=== PATIENT | male | born 1950 | race Caucasian/White ===

== ENCOUNTER 2020-03-14 06:25 | Inpatient (IN) | payer OTHER, SELFPAY ==
[2020-03-14] VITALS (37 sets, daily range): BP systolic 108–142; BP diastolic 67–81; PULSE 77–109; RESP 12–46; TEMP 36.2–37.6; O2SAT 78–99; BMI 29.2; BMI 28.4; BMI 28.5
--- NOTE | 2020-03-14 06:39 | EKG12_ITS ---
Test Reason : SOB Blood Pressure : / mmHG Vent. Rate : 106 BPM Atrial Rate : 106 BPM P-R Int : 188 ms QRS Dur : 078 ms QT Int : 328 ms P-R-T Axes : 057 -58 036 degrees QTc Int : 435 ms Sinus tachycardia Left axis deviation Inferior infarct , age undetermined Anterolateral infarct , age undetermined Abnormal ECG Confirmed by JOSE RAUL DENNISON, IRVIN ([id number]), marketing editor DEMETRIA OLVERA ([id number]) on 03/16/2020 10:29:01 AM Referred By: NANCY Confirmed By:IRVIN BLUNT MD
--- NOTE | 2020-03-14 06:39 | RAD_ITS ---
STUDY: X-RAY CHEST REASON FOR EXAM: Male, 69 years old. SOB AND COUGH. WORSENING SHORTNESS OF BREATH X 1 WEEK. +NAUSEA. LOW GRADE FEVER. TECHNIQUE: Single AP portable view of the chest. COMPARISON: None. FINDINGS: EKG leads overlie the chest The lungs are expanded with diffuse airspace opacifications in both lung sunshine. Findings can be seen with Covid pneumonia, CHF, multifocal pneumonitis. There is no demonstrated pleural abnormality. Normal size heart. Normal mediastinum and kodak. Normal visualized pulmonary arteries. Normal visualized aortic arch and descending thoracic aorta. There are diffuse degenerative changes of the visualized thoracic spine. Normal visualized ribs, clavicles, and shoulders. There is no demonstrated abnormality of the visualized soft tissue structures of the upper abdomen. RAD/Chest 1 View (Portable) IMPRESSION: Patchy diffuse airspace opacification in both lung sunshine, differential as described. Follow-up recommended to ensure resolution Electronically Signed: Carlos Giang MD at 8:30 EDT , Service support ,
--- NOTE | 2020-03-14 06:42 | ED.VISSUMM ---
- ER Visit Summary Date of Service: 03/14/20 Chief Complaint: Shortness of breath History of Present Illness: The patient is a 69 M who presents with shortness of breath that is been getting worse over the past week but became acutely worse since yesterday. Patient states it is gradually gotten worse. Patient states his breathing is worse with any exertion. Patient admits to a cough with a small amount of white sputum. Patient admits to a fever of 102. Patient denies any sore throat, rhinorrhea, or ear pain. Patient denies any chest pain. Patient admits to some nausea and vomiting. Patient denies any loss of taste or smell. Physical Examination: Vital signs are stable except for tachycardia of 109 tachypnea of 30 and a pulse oximeter of 78 on nonrebreather mask. Patient came up to 96 on BiPAP. Patient is resting comfortably and speaking in full sentences while on BiPAP. Oral mucosa is pink and moist. Neck is supple. Trachea is midline. There is no JVD. Heart was regular rate and rhythm. Lungs showed few rales in the bases bilaterally. There is good respiratory effort noted. Abdomen is soft. Bowel sounds are normal. There is no tenderness. Cranial nerves II through XII are intact. There are no focal motor or sensory deficits. Test Results: EKG showed sinus tachycardia with a rate of 106. There are no acute ST or T wave changes noted. CBC and comprehensive metabolic profile were obtained. Arterial blood gas was obtained. Blood cultures were obtained. Lactate and troponin were obtained. Portable chest x-ray was obtained. Covid test and respiratory panel were obtained. Emergency Department Course and Treatment: Patient was maintained on BiPAP here. Patient was given an albuterol inhaler. Care of the patient was turned over to the oncoming physician pending lab and x-ray results. Disposition: Likely admission to the hospital Impression: 1. Hypoxemia This note was generated with [employer] dictation software. It may contain incorrect words, spelling, and punctuation that were not noted in review of the chart prior to signing ED Disposition - Plan for ED Patient: Referrals: Michoacano Ruiz DO [Primary Care Provider] -
[2020-03-14] MEDS: 0.9% Normal Saline 1,000 ML 999 ML IV ×2 (07:11→09:00)
[2020-03-14 07:22] LABS: ALB/GLOB Ratio 0.5 RATIO (0.9-2.4); AST(SGOT) 44 U/L (15-37); Alanine Aminotransfer ALT/SGPT 43 U/L (16-61); Albumin, Serum 2.6 g/dL (3.2-5.0); Alkaline Phosphatase 113 U/L (45-117); Anion Gap 8 (5-15); BUN 25 mg/dL (7-18); BUN/Creat Ratio 19.8 RATIO (10-20); Calcium,Total 9.2 mg/dL (8.5-10.1); Chloride 103 mmol/L (98-107); Creatinine, Serum 1.26 mg/dL (0.70-1.30); EST Glomerular Filtration Rate 61 mL/min (>60); Est Glom Filt Rate - Afr Amer 73 mL/min (>60); Estimated Creatinine Clearance 58.74 ml/min; Glucose 192 mg/dL (74-106); Potassium 3.8 mmol/L (3.5-5.1); Protein, Total 7.6 g/dL (6.4-8.2); Sodium Level 136 mmol/L (136-145)
[2020-03-14 07:29] LABS: NRBC Flagged by Analyzer 0 % (0-5)
[2020-03-14 07:36] LABS: Absolute Lymphocyte Count 0.71 X10^3/uL (0.83-4.51); Absolute Neutrophil Count 12.3 X10^3/uL (2.0-7.7); Basophil# 0.02 X10^3/uL; Basophil% 0.1 % (0-1); Eosinophil# 0.01 X10^3/uL; Eosinophils% 0.1 % (0-5); Hematocrit 43.3 % (40-54); Hemoglobin 14.6 g/dL (13.0-16.5); Lymphocyte # 0.71 X10^3/ul (4.0); Lymphocyte % 5.1 % (19-41); Mean Corp Hgb Conc 33.7 g/dL (32-36); Mean Corpuscular Hgb 30.9 pg (27.0-32.0); Mean Corpuscular Volume 91.7 fL (80-94); Mean Platelet Vol. 9.6 fl (6.2-12.0); Monocyte# 0.74 X10^3/uL; Monocyte% 5.3 % (0-10); Neutrophil # 12.27 X10^3/uL (2.7-7.7); Neutrophil % 88.2 % (47-70); Platelet Count 279 K/mm3 (150-450); RBC Distribution Width CV 13.2 % (11.6-14.6); RBC Distribution Width SD 45.3 fl (35.1-43.9); Red Blood Count 4.72 M/mm3 (4.6-6.2); White Blood Count 13.9 K/mm3 (4.4-11.0)
[2020-03-14 07:36] LABS: Allen Test Positive; Base Excess 1 mmol/L (-2 to +2); Bicarbonate 24.9 mmol/L (22-26); Blood Gas Specimen Type ART; FI02 100; O2 Delivery Device BiPAP; PO2 207 mmHG (75-100); RR 12; SITE R Brach; SO2 100 % (95-99); Total Carbon Dioxide 26 mmol/L; pCO2 35.3 mmHg (35-45); pH 7.46 (7.35-7.45)
[2020-03-14 07:55] LABS: Lactic Acid 2.5 mmol/L (0.4-1.9)
[2020-03-14 08:18] LABS: Color, Urine Amber (Yellow); Glucose, Dipstick Normal (Normal); Ketone-Dipstick 5 mg/dl (Negative); Leukocyte Esterase-Dipstick 25 /ul (Negative); Nitrite-Dipstick Positive (Negative); Occult Blood-Urine 250 /ul (Negative); Protein-Dipstick 500 mg/dl (Negative); Urine Clarity Clear (Clear); Urine Urobilinogen 4 mg/dl (Normal)
[2020-03-14 08:38] LABS: CPK Total, Creatine Kinase 76 U/L (39-308); LDH 333 U/L (87-241)
[2020-03-14 08:40] LABS: International Normalized Ratio 1.2; Prothrombin Time (Protime)PT. 14.7 SECONDS (11.7-14.9)
[2020-03-14 08:41] LABS: Partial Thromboplast Time 36.1 Seconds (24.1-36.2)
[2020-03-14 08:47] LABS: Urine Bilirubin Dipstick 1 mg/dL (Negative)
[2020-03-14 08:52] LABS: Fibrinogen > 900 mg/dl (203-444)
[2020-03-14 08:55] LABS: Bacteria 3+ /hpf (None Seen); Fine Granular Cast- Urine 10-25 SEEN /lpf (0-5); Mucous, Urine 2+ /hpf (<or=2+); Red Blood Cells-Urine 10-25 SEEN /hpf (0-5); Squamous Epithelial Cells - UA 0-5 SEEN /hpf (0-5); White Blood Cells 0-5 SEEN /hpf (0-5)
[2020-03-14] MEDS: Ceftriaxone 1 GM/50 ML BAG IV (09:00)
[2020-03-14 09:03] LABS: Procalcitonin 0.59 ng/mL (0.00-0.09)
[2020-03-14 09:19] LABS: D-Dimer Quantitative (DVT/PE) 1.48 FEU/ug/m (0.27-0.49)
--- NOTE | 2020-03-14 09:30 | CT_ITS ---
STUDY: CTA CHEST REASON FOR EXAM: Male, 69 years old. RESPIRATORY FAILURE/FEVER/SOB. TESTING FOR COVID RADIATION DOSAGE (If Supplied By Facility): CTDIvol = ( 17.35 ) mGy, DLP = ( 569.28 ) mGycm TECHNIQUE: The examination was performed with the intravenous administration of IV 100mL Isovue-370. Post-processing of the angiographic images was performed, with multiplanar reformation and 3D reconstruction. Individualized dose optimization techniques were used for this CT. COMPARISON: Previous plain films FINDINGS: Normal enhancement of the main pulmonary artery and right and left pulmonary arteries. Normal enhancement of the bilateral peripheral pulmonary arteries. There is no demonstrated pulmonary embolism. There is atherosclerotic calcification of the aortic arch with tortuosity. There is no demonstrated aortic dissection. Normal heart and pericardium. There are scattered subcentimeter axillary, mediastinal and perihilar lymph nodes. No suspicious bulky lymphadenopathy. There is peribronchial thickening. The lungs are well expanded. Diffuse bilateral groundglass and airspace opacifications in both lung sunshine without effusion. Differential includes Covid pneumonia, multifocal pneumonitis, drug interaction/toxicity. Normal pleura. Normal chest wall structures. There are degenerative changes of thoracic spine. Limited cuts through the upper abdomen show previous cholecystectomy, and diffuse fatty infiltration of the liver. CT/CTA Chest W/WO Contrast IMPRESSION: No demonstrated PE, or thoracic aortic aneurysm or dissection Diffuse airspace and interstitial opacifications in both lung sunshine, differential as described above. Scattered subcentimeter axillary, mediastinal, perihilar lymphadenopathy Degenerative bony changes Electronically Signed: Carlos Giang MD at 10:32 EDT , Service support ,
[2020-03-14 09:38] LABS: BNP,B-Type NATRIURETIC PEPTIDE 199.8 pg/mL (0-100)
--- NOTE | 2020-03-14 10:09 | ED.RN ---
pt onnrb to ct, puffing an sats 78%. bipap taken to radiology and pt placed back on. sats recovered to9 within appx a minute. breathing improving.
[2020-03-14 11:01] LABS: Reflex Lactate? Y
--- NOTE | 2020-03-14 11:42 | ED.RN ---
CALLED RT TO TO COME ASSESS PT, RR MID 40'S, SPO2 91%, HEART RATE INCREASING.
[2020-03-14] MEDS: 0.9% Normal Saline 1,000 ML 150 ML IV (11:46)
[2020-03-14 12:12] LABS: Lactic Acid 2.4 mmol/L (0.4-1.9)
--- NOTE | 2020-03-14 12:16 | PCM.HP.STD ---
History of Present Illness Date of Admission: 03/14/20 Chief Complaint: Hypoxia The patient is a 69 year old M with a PMH as below who presents to the hospital with worsening shortness of breath. He started feeling sick over the last 7 days though his shortness of breath became worse yesterday and then today he was even worse with exertion. He has had a mild cough as well as a fever up to 102. He does have some nausea and vomiting but no loss of sense of smell or taste. Per the family, his is also sick though not as severely. She had gone to [place] 2 weeks ago and 4 days later got sick. She feels tired but otherwise does not have any coughing or shortness of breath. In the ER he was found to have a white count of 13.9 as well as a D-dimer of 1.48 and underwent a CTA of the chest which was negative for PE. His lactic acid in the ED was 2.5 and his come down to 2.4. His troponin was elevated to 1.08, with a C-reactive protein of 385 and a BNP of 200 with a procalcitonin of 0.59 and an LDH of 333. He also had a UA with positive nitrites and positive leukocyte esterase with no white blood cell count but 3+ urine bacteria. Past Medical History Past Medical History (Chronic Problems): Chronic Problems Cholelithiasis (Chronic) Allergies No Known Allergies Allergy (Verified 10/16/14 22:10) Home Medications: Ambulatory Orders Medication Instructions Recorded Testosterone Cypionate [Testone 200 mg IM 03/14/20 [facility]] Surgical History: no surgical history Psychiatric History: No pertinent psych hx Smoking Status: Never smoker Alcohol: None Drugs: None - *Family History Maternal History Items: Heart Disease Paternal History Items: Pulmonary Disease, - - there is no FH of DM Review of Systems Constitutional: Reports: Fever, Malaise. Denies: Anorexia HEENT: Denies: Head Aches, Sinus Congestion, Sinus Drainage Cardiovascular: Denies: Chest Pain, Palpitations Respiratory: Reports: Shortness of Breath, Shortness of breath upon exertion, Sputum production. Denies: Cough, Shortness of breath at rest Gastrointestinal: Denies: Abdominal Pain, Nausea, Vomiting Genitourinary: Denies: Dysuria Musculoskeletal: Denies: Joint Pain, Joint Tenderness Skin: Denies: Rash, Wounds Neurological: Denies: Numbness, Tingling, Focal weakness Psychiatric: Denies: Anxiety, Depression Hematologic/ Lymphatic: Denies: Easy Bruising, Easy Bleeding VTE Information - Inpt Only VTE Present on Admission: No - Physical Exam Vitals/I&O's: Vital Signs Temp Pulse Resp BP Pulse Ox 98.9 F 102 H 46 H 113/68 94 03/14/20 11:10 03/14/20 11:54 03/14/20 11:54 03/14/20 11:10 03/14/20 11:54 Oxygen Flow Rate (L/min) 15 Oxygen Delivery Method Room Air Weight: 204 lb 2.369 oz Body Mass Index (BMI) 29.2 Finger Stick Blood Glucose 119 Intake and Output for Last 24 Hours 03/12/20 03/13/20 03/14/20 23:59 23:59 23:59 Intake Total 2305 / 2305 Balance 2305 / 2305 General: Alert, Oriented x3, Cooperative, No apparent distress HEENT: Atraumatic, PERRLA, EOMI, Normocephalic Oral: Moist Mucosa Neck: Supple, No JVD Lungs: Normal air movement, No rhonchi, No wheeze, No rales, Diminished Cardiovascular: Regular Rhythm, Normal S1, Normal S2, No murmurs, Tachycardic Abdomen: Soft, Non Tender, Non-Distended, No Hepato-splenomegaly Extremities: No edema, Capillary Refill Less than 3 Seconds Skin: No rashes, No breakdown, Incision - Right upper back with packing in place no erythema surrounding the incision Neurological: Neuro grossly intact, Sensory exam intact to light touch and pain Psych/Mental Status: Normal Affect, Appropriate Microbiology Past 72 Hours 03/14/20 06:51 Mucosa - Nose Respiratory Panel (PCR) - Final Laboratory Results 03/14/20 06:31: Specimen Type ART, Sample Site R Brach, pH 7.46 H, Bicarbonate Actual 24.9, Total CO2 26, Base Excess 1, O2 Saturation 100 H, O2 % 100, ABG pCO2 35.3, ABG pO2 207 H, Augusto Test Positive, Respiration Rate 12, O2 Delivery Device BiPAP 03/14/20 06:45: Troponin I 1.080 H* 03/14/20 06:51: COVID-19 ([facility]) Detected 03/14/20 06:55: WBC 13.9 H, RBC 4.72, Hgb 14.6, Hct 43.3, MCV 91.7, MCH 30.9, MCHC 33.7, RDW Std Deviation 45.3 H, RDW Coeff of Maxim 13.2, Plt Count 279, MPV 9.6, Immature Gran % (Auto) 1.200 H, Neut % (Auto) 88.2 H, Lymph % (Auto) 5.1 L, Craven % (Auto) 5.3, Eos % (Auto) 0.1, Baso % (Auto) 0.1, Absolute Neuts (auto) 12.3 H, Absolute Lymphs (auto) 0.71 L, Nucleated RBC % 0 03/14/20 06:55: PT Cancelled, INR Cancelled, APTT Cancelled 03/14/20 06:55: Sodium 136, Potassium 3.8, Chloride 103, Carbon Dioxide 25.0, Anion Gap 8, BUN 25 H, Creatinine 1.26, Estim Creat Clear Calc 58.74, Est GFR (MDRD) Af Amer 73, Est GFR (MDRD) Non-Af 61, BUN/Creatinine Ratio 19.8, Glucose 192 H, Calcium 9.2, Total Bilirubin 0.50, AST 44 H, ALT 43, Alkaline Phosphatase 113, Total Protein 7.6, Albumin 2.6 L, Globulin 5.0 H, Albumin/Globulin Ratio 0.5 L 03/14/20 06:55: Lactic Acid 2.5 H* 03/14/20 06:55: B-Natriuretic Peptide 199.8 H 03/14/20 07:55: Urine Color Kathia, Urine Clarity Clear, Urine pH 5.0, Ur Specific Start 1.020, Urine Protein 500 H, Urine Glucose (UA) Normal, Urine Ketones 5 H, Urine Occult Blood 250 H, Urine Nitrite Positive H, Urine Bilirubin 1 H, Urine Urobilinogen 4 H, Ur Leukocyte Esterase 25 H, Urine RBC 10-25 SEEN, Urine WBC 0-5 SEEN, Ur Squamous Epith Cells 0-5 SEEN, Urine Bacteria 3+, Fine Granular Casts 10-25 SEEN, Urine Mucus 2+ 03/14/20 07:55: PT 14.7, INR 1.2, APTT 36.1, Fibrinogen > 900 H, D-Dimer Quant (PE/DVT) 1.48 H* 03/14/20 07:55: Lactate Dehydrogenase 333 H, Total Creatine Kinase 76, C-React Prot Ext Range 385.00 H 03/14/20 07:55: Procalcitonin 0.59 H 03/14/20 11:35: Lactic Acid 2.4 H* Current Medications Sodium Chloride () 1,000 mls @ 150 mls/hr IV .[id number] [facility] Last Admin: 03/14/20 11:46 Dose: 150 mls/hr Documented by: Assessment/Plan All Active Problems Hyperglycemia (Acute) Acute pancreatitis (Acute) Abnormal LFTs (liver function tests) (Acute) 1. Severe sepsis secondary to acute Covid pneumonia with acute hypoxic respiratory failure/UTI/elevated troponin secondary to demand ischemia -Per report his oxygen saturations were in the 70s while on a nonrebreather prior to being initiated on BiPAP therapy which has stabilized his oxygen saturations -We will consult the director of institutional research as well as infectious disease for likely initiation of convalescent plasma and remdesivir -We will initiate him on Decadron as well as continue with Rocephin for his UTI pending urine culture -Urine strep and Legionella antigens are pending -D-dimer is a little bit elevated however CTA was negative for a PE -Obtain serial troponins, likely secondary to demand ischemia from his hypoxia. No need for cardiology evaluation at this time however if he does have a significant increase in his troponins then will consult cardiology. At this time he denies any chest pain 2. Right upper back abscess -He had a large boil on his back which was lanced by his physician 1 to 2 weeks ago -He does have packing in place but the area does not appear red or inflamed -We will consult wound care for evaluation and management DVT: Lovenox Inpatient E&M: [id number] Init Hosp L3
[2020-03-14] MEDS: 0.9% Normal Saline 1,000 ML 100 ML IV (17:48)
[2020-03-14] MEDS: dexAMETHasone 10 MG/ML Vial 6 MG IV (17:48)
--- NOTE | 2020-03-14 20:27 | CPS ---
Pt.'s EPAP and FiO2 increased; alveolar recruitment as well as meeting pt.'s oxygenation demands
[2020-03-14] MEDS: Enoxaparin 30 MG/0.3 ML Syringe SC (20:49)
[2020-03-15] VITALS (36 sets, daily range): BP systolic 104–139; BP diastolic 62–79; PULSE 74–90; RESP 12–43; TEMP 36.3–37.2; O2SAT 86–97
--- NOTE | 2020-03-15 03:12 | NURSING ---
bipap became disconnected, pt's O2 sats dropped to mid 60's, placed on 100% FiO2 for approx 5 minutes, weaned back down to 60% FiO2, sats 87-88%, increased FiO2 to 70%, pt recovery slowly.
[2020-03-15] MEDS: 0.9% Normal Saline 1,000 ML 100 ML IV ×2 (03:22→13:10)
[2020-03-15 03:39] LABS: Absolute Neutrophil Count 8.2 X10^3/uL (2.0-7.7); Basophil# 0.02 X10^3/uL; Basophil% 0.2 % (0-1); Hematocrit 43.7 % (40-54); Hemoglobin 14.1 g/dL (13.0-16.5); Lymphocyte % 8.5 % (19-41); Mean Corp Hgb Conc 32.3 g/dL (32-36); Mean Corpuscular Hgb 30.9 pg (27.0-32.0); Mean Corpuscular Volume 95.8 fL (80-94); Monocyte% 3.2 % (0-10); NRBC Flagged by Analyzer 0 % (0-5); Neutrophil % 87.5 % (47-70); Platelet Count 255 K/mm3 (150-450); RBC Distribution Width CV 13.9 % (11.6-14.6); RBC Distribution Width SD 49.1 fl (35.1-43.9); Red Blood Count 4.56 M/mm3 (4.6-6.2); White Blood Count 9.4 K/mm3 (4.4-11.0)
[2020-03-15 03:51] LABS: Anion Gap 8 (5-15); BUN 26 mg/dL (7-18); BUN/Creat Ratio 20.2 RATIO (10-20); Calcium,Total 8.6 mg/dL (8.5-10.1); Chloride 106 mmol/L (98-107); Creatinine, Serum 1.29 mg/dL (0.70-1.30); EST Glomerular Filtration Rate 59 mL/min (>60); Est Glom Filt Rate - Afr Amer 71 mL/min (>60); Estimated Creatinine Clearance 59.18 ml/min; Glucose 212 mg/dL (74-106); Potassium 4.9 mmol/L (3.5-5.1); Sodium Level 140 mmol/L (136-145)
--- NOTE | 2020-03-15 09:24 | PN_ITS ---
Subjective: Feeling better, breathing a little bit easier today. Continue with the BiPAP, he remains tachypneic Vitals/I&O's: Vital Signs Temp Pulse Resp BP Pulse Ox 97.4 F L 76 30 H 113/66 95 03/15/20 08:00 03/15/20 08:00 03/15/20 08:00 03/15/20 08:00 03/15/20 08:00 Oxygen Flow Rate (L/min) 15 Oxygen Delivery Method Bi-pap Weight: 202 lb 6.15 oz Body Mass Index (BMI) 28.4 Finger Stick Blood Glucose 119 Intake and Output for Last 24 Hours 03/13/20 03/14/20 03/15/20 23:59 23:59 23:59 Intake Total 2610 / 2610 956.67 / 956.67 Output Total 520 / 520 400 / 400 Balance 2089 / 2089 556.67 / 556.67 General: Alert, Oriented x3, Cooperative, No apparent distress HEENT: Atraumatic, PERRLA, EOMI, Normocephalic Oral: Moist Mucosa Neck: Supple, No JVD Lungs: Normal air movement, No rhonchi, No wheeze, No rales, Diminished, tachypneic Cardiovascular: Regular rate and rhythm, Normal S1, Normal S2, No murmurs Abdomen: Soft, Non Tender, Non-Distended, No Hepato-splenomegaly Extremities: No edema, Capillary Refill Less than 3 Seconds Skin: No rashes, No breakdown, Incision - Right upper back with packing in place no erythema surrounding the incision Neurological: Neuro grossly intact, Sensory exam intact to light touch and pain Psych/Mental Status: Normal Affect, Appropriate Microbiology Past 72 Hours 03/14/20 07:55 Urine, Clean Catch Legionella Antigen - Final 03/14/20 07:55 Urine, Clean Catch Streptococcus pneumoniae Antigen (M - Final 03/14/20 06:51 Mucosa - Nose Respiratory Panel (PCR) - Final Laboratory Results 03/14/20 06:51: COVID-19 ([facility]) Detected 03/14/20 06:55: B-Natriuretic Peptide 199.8 H 03/14/20 11:35: Lactic Acid 2.4 H* 03/14/20 15:00: Troponin I 0.945 H* 03/14/20 18:45: Troponin I 0.950 H* 03/14/20 20:50: Troponin I 0.959 H* 03/15/20 03:30: WBC 9.4, RBC 4.56 L, Hgb 14.1, Hct 43.7, MCV 95.8 H, MCH 30.9, MCHC 32.3, RDW Std Deviation 49.1 H, RDW Coeff of Maxim 13.9, Plt Count 255, MPV 9.0, Immature Gran % (Auto) 0.600, Neut % (Auto) 87.5 H, Lymph % (Auto) 8.5 L, [place]erry % (Auto) 3.2, Eos % (Auto) 0.0, Baso % (Auto) 0.2, Absolute Neuts (auto) 8.2 H, Absolute Lymphs (auto) 0.80 L, Nucleated RBC % 0 03/15/20 03:30: Sodium 140, Potassium 4.9, Chloride 106, Carbon Dioxide 26.0, Anion Gap 8, BUN 26 H, Creatinine 1.29, Estim Creat Clear Calc 59.18, Est GFR (MDRD) Af Amer 71, Est GFR (MDRD) Non-Af 59 L, BUN/Creatinine Ratio 20.2 H, Glucose 212 H, Calcium 8.6 Current Medications Dexamethasone Sodium Phosphate (Dexamethasone 10 Mg/Ml Vial) 6 mg IV DAILY [facility] Last Admin: 03/14/20 17:48 Dose: 6 mg Documented by: Enoxaparin Sodium (Enoxaparin 100 Mg/Ml Syringe) 90 mg SC BID [facility] Sodium Chloride () 1,000 mls @ 100 mls/hr IV .Q10H [facility] Last Admin: 03/15/20 03:22 Dose: 100 mls/hr Documented by: Ceftriaxone Sodium (Rocephin) 1 gm in 50 mls @ 100 mls/hr IV Q24 [facility] Influenza Virus Vaccine Quadrival (Influenza Vaccine (6mos+)/Pf 0.5 Ml Syringe) 0.5 ml IM .ONCE ONE Stop: 03/15/20 10:01 Ondansetron HCl (Ondansetron 4 Mg/2 Ml Vial) 4 mg IV Q8H PRN PRN PRN Reason: NAUSEA/VOMITING Sodium Chloride (0.9% Saline Lock 10 Ml Syringe) 10 - 40 ml IV UD PRN PRN Reason: SALINE FLUSH STROKE Vital Signs/Narrative: Vital Signs Temp Pulse Resp BP Pulse Ox 10/26/20 08:00 97.4 F L 76 30 H 113/66 95 03/15/20 07:26 83 32 H 92 03/15/20 07:00 78 29 H 119/76 90 03/15/20 06:00 77 27 H 114/72 92 03/15/20 05:33 75 30 H 95 Medical Necessity - Tobacco Use Smoking Status: Never smoker Tobacco Use: Non-smoker Assessment/Plan All Active Problems Hyperglycemia (Acute) Acute pancreatitis (Acute) Abnormal LFTs (liver function tests) (Acute) 1. Severe sepsis secondary to acute Covid pneumonia with acute hypoxic respiratory failure/UTI/elevated troponin secondary to demand ischemia -Per report his oxygen saturations were in the 70s while on a nonrebreather prior to being initiated on BiPAP therapy which has stabilized his oxygen saturations -We will consult the weigher alloy as well as infectious disease for likely initiation of convalescent plasma and remdesivir -We will initiate him on Decadron as well as continue with Rocephin for his UTI pending urine culture -Urine strep and Legionella antigens are pending -D-dimer is a little bit elevated however CTA was negative for a PE -His troponin started climbing down, therefore likely demand ischemia from his hypoxia. 2. Right upper back abscess -He had a large boil on his back which was lanced by his physician 1 to 2 weeks ago -He does have packing in place but the area does not appear red or inflamed -We will consult wound care for evaluation and management DVT: Therapeutic Lovenox Inpatient E&M: [id number] Subs Hosp L2
[2020-03-15] MEDS: Enoxaparin 100 MG/ML Syringe 90 MG SC ×2 (10:14→20:16)
[2020-03-15] MEDS: dexAMETHasone 10 MG/ML Vial 6 MG IV (10:14)
[2020-03-15] MEDS: Ceftriaxone 1 GM/50 ML BAG IV (10:14)
--- NOTE | 2020-03-15 11:33 | CASEMGMT ---
Per Kewrin GUADARRAMA CM in ICU today, pt's contact is , Cheli, at [phone]. Message left for to call this RN CM back when able to complete CM assessment. Pt is currently on Bipap at this time. Deirdre GUADARRAMA CM
--- NOTE | 2020-03-15 11:50 | CASEMGMT ---
THIERRY GRAF assessment: Phone interview with patient's , Cheli Subramanian, for initial transition planning/care coordination assessment as pt is COVID positive. THIERRY GRAF introduced self and role at [facility], pt voices understanding and consents to assessment at this time. Pt is on continuous bipap at this time, unable to complete assessment. states she had COVID-like sx's starting about 2weeks ago but not as severe and states have since resolved. states that most of her family had the same sx's at the same time she did and have all recovered. Care providers, pharmacy, and demographics verified/updated at this time. Presentation: Worsening SOB x1 week, +nausea, low grade fever Admitting dx: COVID pna, UTI PCP: Sara Specialists: [facility] in [place]? Preferred Pharmacy: [facility] Insurance: AA Prescription Benefit: Self pay Living Will/HPOA: states pt does not have LW/HPOA at this time and declines AD info. LNOK: Cheli Subramanian, Living Arrangements: Pt lives with in 1 story home with son and his family next door and states no concerns with pt at home at this time. states pt is normally independent with ADL's. states they do have generators at home, if home oxygen needed at discharge. Transportation: states they normally have no transportation concerns but states is unsure who will take pt home at discharge d/t +COVID. THIERRY GRAF did advised that there is a [employer] company that is transporting COVID pt's, voiced understanding. DME/HHC: states they do have a cane and w/c at home as well as access to a walker, if needed. states no preference for home oxygen company at this time, if pt qualifies at discharge. states pt has no hx of HHC or SNF in the past. states no concerns with pt coming home at time of discharge. Pt is self-employed. Pt does not smoke cigarettes or drink ETOH. voices no further questions/concerns/needs at this time. CM to follow for PT/OT evals, home oxygen qualification, and any further discharge planning/needs. Advised to ask for CM if any further questions/concerns/needs arise, voices understanding. Pt Goal: Home Plan[place] THIERRY GRAF
--- NOTE | 2020-03-15 11:50 | PCM.CON.CC ---
Problem List (1) Acute respiratory failure with hypoxia Status: Acute (2) Pneumonia due to COVID-19 virus Status: Acute (3) Hyperglycemia Status: Acute (4) Abnormal LFTs (liver function tests) Status: Acute Reason for Consult Date of Consultation: 03/15/20 Reason for Consultation: Respiratory failure History of Present Illness: The patient is a 69 year old M, with past medical history listed below, who presented [facility] secondary to progressive shortness of breath. Patient reportedly started to have symptoms approximately week ago, but these are progressed over the weekend, so patient came to the ER for evaluation. Patient states she initially had shortness of breath with exertion, but progressed to shortness of breath at rest. Patient has had a cough productive of scant white sputum. Patient was also noted to have a fever of 102 ?F. Patient denied any sore throat, chest pain, abdominal pain or rhinorrhea. Patient has had some nausea and vomiting. Patient has not reported any change in smell or taste sensation. In the ER, patient was noted to be tachycardic and tachypneic. Patient's pulse ox was noted to be 78% on a nonrebreather mask. This did improve with initiation of BiPAP therapy. EKG showed sinus tachycardia with no ST changes. Laboratory work-up showed a leukocytosis of 13.9 with 14.6 hemoglobin. Urine did have bacteria with positive nitrites. BNP was slightly elevated at 199.8 and lactate was elevated at 2.5. CRP was elevated at 385 and fibrinogen was over 900. Patient had come back positive for COVID-19 and chest x-ray had shown diffuse infiltrates. CTA of the chest showed no PE, but scattered groundglass opacities. Patient was placed on albuterol, Rocephin and azithromycin. Since being in the intensive care unit, patient has required BiPAP [id number]. Patient is requiring 60 to 70% FiO2 to maintain saturations. Patient states he feels improved on BiPAP therapy, but gets short of breath quickly with any breaks. Patient denies any history of previous lung problems. Patient describes himself as a social drinker. Patient did have an abscess on his back that was recently drained. Patient is not reporting any significant pain in that area. Review of systems otherwise negative from a constitutional, HEENT, respiratory, cardiovascular, GI, genitourinary, musculoskeletal, skin, neurologic, psychiatric and hematologic system unless stated above. Past Medical History Past Medical History (Chronic Problems): Chronic Problems Cholelithiasis (Chronic) Allergies No Known Allergies Allergy (Verified 10/16/14 22:10) Home Medications: Ambulatory Orders Medication Instructions Recorded Testosterone Cypionate [Testone 200 mg IM 03/14/20 Ci] Surgical History: no surgical history Psychiatric History: No pertinent psych hx Smoking Status: Never smoker Tobacco Use: Non-smoker Alcohol: None Drugs: None - *Family History Maternal History Items: Heart Disease Paternal History Items: Pulmonary Disease, - - there is no FH of DM Review of Systems Comment: See HPI Objective: All imaging was personally reviewed. CT of the chest shows scattered groundglass opacities. There are no pulmonary function tests or echocardiograms available in EHR. - Physical Exam Vitals/I&O's: Vital Signs Temp Pulse Resp BP Pulse Ox 36.3 C L 77 33 H 124/71 H 97 03/15/20 08:00 03/15/20 11:13 03/15/20 11:00 03/15/20 11:00 03/15/20 11:00 Oxygen Flow Rate (L/min) 15 Oxygen Delivery Method Bi-pap Weight: 91.8 kg Body Mass Index (BMI) 28.4 Finger Stick Blood Glucose 119 Intake and Output for Last 24 Hours 03/13/20 03/14/20 03/15/20 23:59 23:59 23:59 Intake Total 2610 / 2610 1006.67 / 1006.67 Output Total 520 / 520 650 / 650 Balance 2089 / 2089 356.67 / 356.67 General: Alert, Oriented x3, Cooperative, No apparent distress - On high BiPAP settings, - - Actively communicating with writing on a tablet HEENT: Atraumatic, PERRLA, EOMI, Normocephalic, - - Slight scleral injection without icterus Oral: No Gingival or Mucosal Lesions/ Ulcerations, Dry Mucosa Neck: Supple, No JVD, No Nodes, Trachea Midline Lungs: No rhonchi, No wheeze, Diminished, Rales - Right greater than left Cardiovascular: Regular rate, Regular Rhythm, Normal S1, Normal S2, No murmurs, No rub noted, No Gallop Abdomen: Bowel Sounds Present, Soft, Non Tender, Non-Distended Extremities: No clubbing, No cyanosis, Edema - Trace Skin: No rashes, No breakdown Musculoskeletal: No Tenderness to Palpation of Joints or Extremities Lymphatic: No Cervical, Supraclavicular, or Inguinal Adenopathy Neurological: Cranial nerves II-XII grossly intact, Neuro grossly intact, Motor Exam 5/5 strength throughout Psych/Mental Status: Alert and oriented to time, place, person, mood and affect Microbiology Past 72 Hours 03/14/20 07:55 Urine, Clean Catch Legionella Antigen - Final 03/14/20 07:55 Urine, Clean Catch Streptococcus pneumoniae Antigen (M - Final 03/14/20 06:51 Mucosa - Nose Respiratory Panel (PCR) - Final Laboratory Results 03/14/20 11:35: Lactic Acid 2.4 H* 03/14/20 15:00: Troponin I 0.945 H* 03/14/20 18:45: Troponin I 0.950 H* 03/14/20 20:50: Troponin I 0.959 H* 03/15/20 03:30: WBC 9.4, RBC 4.56 L, Hgb 14.1, Hct 43.7, MCV 95.8 H, MCH 30.9, MCHC 32.3, RDW Std Deviation 49.1 H, RDW Coeff of Maxim 13.9, Plt Count 255, MPV 9.0, Immature Gran % (Auto) 0.600, Neut % (Auto) 87.5 H, Lymph % (Auto) 8.5 L, [place] % (Auto) 3.2, Eos % (Auto) 0.0, Baso % (Auto) 0.2, Absolute Neuts (auto) 8.2 H, Absolute Lymphs (auto) 0.80 L, Nucleated RBC % 0 03/15/20 03:30: Sodium 140, Potassium 4.9, Chloride 106, Carbon Dioxide 26.0, Anion Gap 8, BUN 26 H, Creatinine 1.29, Estim Creat Clear Calc 59.18, Est GFR (MDRD) Af Amer 71, Est GFR (MDRD) Non-Af 59 L, BUN/Creatinine Ratio 20.2 H, Glucose 212 H, Calcium 8.6 Current Medications Dexamethasone Sodium Phosphate (Dexamethasone 10 Mg/Ml Vial) 6 mg IV DAILY [facility] Last Admin: 03/15/20 10:14 Dose: 6 mg Documented by: Enoxaparin Sodium (Enoxaparin 100 Mg/Ml Syringe) 90 mg SC BID [facility] Last Admin: 03/15/20 10:14 Dose: 90 mg Documented by: Sodium Chloride () 1,000 mls @ 100 mls/hr IV .Q10H [facility] Last Admin: 03/15/20 03:22 Dose: 100 mls/hr Documented by: Ceftriaxone Sodium (Rocephin) 1 gm in 50 mls @ 100 mls/hr IV Q24 [facility] Last Infusion: 03/15/20 11:16 Dose: Infused Documented by: Ondansetron HCl (Ondansetron 4 Mg/2 Ml Vial) 4 mg IV Q8H PRN PRN PRN Reason: NAUSEA/VOMITING Sodium Chloride (0.9% Saline Lock 10 Ml Syringe) 10 - 40 ml IV UD PRN PRN Reason: SALINE FLUSH Clinical Impression(s) from Imaging Studies Chest X-Ray 03/14/20 06:39 IMPRESSION: Patchy diffuse airspace opacification in both lung sunshine, differential as described. Follow-up recommended to ensure resolution Electronically Signed: Carlos Giang MD at 8:30 EDT , Service support , Chest CTA 03/14/20 09:30 IMPRESSION: No demonstrated PE, or thoracic aortic aneurysm or dissection Diffuse airspace and interstitial opacifications in both lung sunshine, differential as described above. Scattered subcentimeter axillary, mediastinal, perihilar lymphadenopathy Degenerative bony changes Electronically Signed: Carlos Giang MD at 10:32 EDT , Service support , Assessment/Plan RECOMMENDATIONS: 1. Increased to therapeutic anticoagulation 2. Agree with empiric antibiotics for now 3. Ordered convalescent serum. Defer to ID for remdesivir 4. Wean oxygen as tolerated 5. Consider culture of back abscess if any drainage is noted 6. Confirmed CODE STATUS DNR Comfort Care arrest with intubation IMPRESSIONS: 1. Acute hypoxic respiratory failure secondary to COVID-19 pneumonia Patient requiring significant amounts of oxygen to maintain appropriate saturations. Patient does not have a history of underlying lung pathology, but does have groundglass opacities bilaterally consistent with COVID-19 pneumonia. Patient will be ordered convalescent serum. Will defer to ID for remdesivir. Continue with empiric antibiotics for possible superinfection. Anticoagulation will be increased to therapeutic dosing. 2. Severe sepsis secondary to COVID-19 and possible UTI Patient with severe sepsis on presentation. Patient appears to be improving with control of hypoxia. Urine was suggestive of an UTI, but culture appears to be normal. We will continue with empiric antibiotics for 48 hours until blood cultures are negative. Infectious disease has been consulted. Patient does have a history of a recent back abscess, but this does not appear to be acutely inflamed. If exudate noted, culture would be reasonable. 3. Elevated troponin secondary to supply demand mismatch Patient with some elevated troponins, but given the lack of ST changes and profound hypoxia on presentation, supply demand mismatch is suspected. Patient will be placed on systemic anticoagulation for problem #1. Patient may benefit from a stress test as an outpatient, but would defer to PCP. Okay to hold off on cardiology consult from my perspective. 4. Acute kidney injury Previous baseline creatinine was approximately 0.7. Patient is making good urine at this time. No indication for renal replacement therapy. Continue to monitor electrolytes and replete as necessary. TIME: 34 minutes critical care time spent addressing patient's acute hypoxic respiratory failure, severe sepsis, elevated troponin, acute kidney injury, review of all data and collaboration with care team (9 AM to 10 AM) [id number] Critical care first hour
--- NOTE | 2020-03-15 15:12 | CASEMGMT ---
THIERRY GRAF NOTE: THIERRY GRAF informed [facility] This engineering writer called pt's , Cheli, to inquire about this appt. Cheli states she has already called and cx'd this appt and she plans to call to reschedule it at a later time. Vasquez TREJO RN, CM
[2020-03-15 15:53] LABS: M R Staph aureus DNA By PCR Negative (Negative); Probe Check PASS; Specimen Processing Control PASS; Staph aureus DNA By PCR NEGATIVE (Negative)
--- NOTE | 2020-03-15 16:16 | PCM.HP.ID ---
Problem List (1) Pneumonia due to COVID-19 virus Status: Acute Reason for Consult: covid Consulted by: Dr. Harris History of Present Illness: The patient is a 69 year old M who presented 03/14 with one week of fever, cough, dyspnea, headache, fatigue, change in taste. No n/v/d. with similar symptoms before he had them, was not tested, is recovering. Came to ED, admitted to icu on dex and ceftriaxone. Feeling a little better today. Full ROS performed and neg except as noted above. - Medical History Past Medical History (Chronic Problems): Chronic Problems Cholelithiasis (Chronic) Allergies/Adverse Reactions: Allergies No Known Allergies Allergy (Verified 10/16/14 22:10) Home Medications: Ambulatory Orders Medication Instructions Recorded Testosterone Cypionate [Testone 200 mg IM 03/14/20 Cik] - Social History Tobacco Use: non-smoker Vital Signs Temp Pulse Resp BP Pulse Ox 98.1 F 89 31 H 126/70 H 90 03/15/20 12:00 03/15/20 15:10 03/15/20 15:00 03/15/20 15:00 03/15/20 15:00 Oxygen Flow Rate (L/min) 15 Oxygen Delivery Method Airvo Weight: 91.8 kg Body Mass Index (BMI) 28.4 Finger Stick Blood Glucose 119 Microbiology Past 72 Hours 03/14/20 07:55 Urine Culture - Preliminary Urine, Clean Catch Culture exhibits no growth. 03/14/20 07:55 Legionella Antigen - Final Urine, Clean Catch Streptococcus pneumoniae Antigen (M - Final 03/14/20 06:51 Respiratory Panel (PCR) - Final Mucosa - Nose Laboratory Tests Past 24 Hrs 03/14/20 03/14/20 03/15/20 18:45 20:50 03:30 WBC 9.4 RBC 4.56 L Hgb 14.1 Hct 43.7 MCV 95.8 H MCH 30.9 MCHC 32.3 RDW Std Deviation 49.1 H RDW Coeff of Maxim 13.9 Plt Count 255 MPV 9.0 Immature Gran % (Auto) 0.600 Neut % (Auto) 87.5 H Lymph % (Auto) 8.5 L [place] % (Auto) 3.2 Eos % (Auto) 0.0 Baso % (Auto) 0.2 Absolute Neuts (auto) 8.2 H Absolute Lymphs (auto) 0.80 L Nucleated RBC % 0 Sodium Potassium Chloride Carbon Dioxide Anion Gap BUN Creatinine Estim Creat Clear Calc Est GFR (MDRD) Af Amer Est GFR (MDRD) Non-Af BUN/Creatinine Ratio Glucose Calcium Troponin I 0.950 H* 0.959 H* S.aureus Protein A PCR MRSA (PCR) Blood Type 03/15/20 03/15/20 03/15/20 03:30 12:45 14:10 WBC RBC Hgb Hct MCV MCH MCHC RDW Std Deviation RDW Coeff of Maxim Plt Count MPV Immature Gran % (Auto) Neut % (Auto) Lymph % (Auto) [place] % (Auto) Eos % (Auto) Baso % (Auto) Absolute Neuts (auto) Absolute Lymphs (auto) Nucleated RBC % Sodium 140 Potassium 4.9 Chloride 106 Carbon Dioxide 26.0 Anion Gap 8 BUN 26 H Creatinine 1.29 Estim Creat Clear Calc 59.18 Est GFR (MDRD) Af Amer 71 Est GFR (MDRD) Non-Af 59 L BUN/Creatinine Ratio 20.2 H Glucose 212 H Calcium 8.6 Troponin I S.aureus Protein A PCR NEGATIVE MRSA (PCR) Negative Blood Type A POSITIVE - Other Studies Radiology: [] reviewed Other Studies: [] Route of nutrition/ use of supplements: [] Nutritional Intake: [] IV Site: [] Carrillo Catheter: [] - Physical Exam General: Alert, Oriented x3, Cooperative HEENT: Atraumatic, PERRLA, EOMI Neck: Supple, No Nodes Lungs: Diminished Cardiovascular: Regular rate, Regular Rhythm Abdomen: Soft, Non Tender, Non-Distended Extremities: No edema Skin: No rashes IV Site: Peripheral, without redness Musculoskeletal: No Tenderness to Palpation of Joints or Extremities Neurological: Cranial nerves II-XII grossly intact - Assessment/Plan Antibiotics: [] Assessment/Plan: [] Active and Suspected Problems Acute respiratory failure with hypoxia (Acute) Pneumonia due to COVID-19 virus (Acute) Hyperglycemia (Acute) Abnormal LFTs (liver function tests) (Acute) Sat of 78% on arrival. Sx started a week prior to admit 03/14. recovering but was never tested. Plasma ordered by pulm, on dex, on therapeutic lovenox. CT showed no PE. Low suspicion bacterial infection, will stop ceftriaxone. Will start remdesivir, pt is in agreement. Will follow, thank you
[2020-03-16] VITALS (34 sets, daily range): BP systolic 110–133; BP diastolic 67–79; PULSE 63–83; RESP 12–44; TEMP 36.7–37.3; O2SAT 84–97
[2020-03-16] MEDS: 0.9% Normal Saline 1,000 ML 100 ML IV ×3 (01:00→16:47)
[2020-03-16 05:09] LABS: Hematocrit 39.3 % (40-54); Hemoglobin 12.8 g/dL (13.0-16.5); Mean Corp Hgb Conc 32.6 g/dL (32-36); Mean Corpuscular Hgb 30.9 pg (27.0-32.0); Mean Corpuscular Volume 94.9 fL (80-94); Mean Platelet Vol. 9.5 fl (6.2-12.0); Platelet Count 329 K/mm3 (150-450); RBC Distribution Width CV 14.3 % (11.6-14.6); RBC Distribution Width SD 49.7 fl (35.1-43.9); Red Blood Count 4.14 M/mm3 (4.6-6.2); White Blood Count 11.3 K/mm3 (4.4-11.0)
[2020-03-16 05:24] LABS: ALB/GLOB Ratio 0.4 RATIO (0.9-2.4); AST(SGOT) 235 U/L (15-37); Alanine Aminotransfer ALT/SGPT 199 U/L (16-61); Albumin, Serum 2.2 g/dL (3.2-5.0); Alkaline Phosphatase 119 U/L (45-117); BUN 26 mg/dL (7-18); BUN/Creat Ratio 25.2 RATIO (10-20); Calcium,Total 8.4 mg/dL (8.5-10.1); Chloride 107 mmol/L (98-107); Creatinine, Serum 1.03 mg/dL (0.70-1.30); EST Glomerular Filtration Rate 76 mL/min (>60); Est Glom Filt Rate - Afr Amer 92 mL/min (>60); Estimated Creatinine Clearance 74.12 ml/min; Globulin 4.9 g/dL (2.2-4.2); Glucose 150 mg/dL (74-106); Potassium 3.8 mmol/L (3.5-5.1); Protein, Total 7.1 g/dL (6.4-8.2); Sodium Level 142 mmol/L (136-145)
[2020-03-16 05:25] LABS: Anion Gap 8 (5-15)
[2020-03-16] MEDS: 0.9% Saline Lock 10 ML Syringe IV ×2 (09:09→10:41)
[2020-03-16] MEDS: Enoxaparin 100 MG/ML Syringe 90 MG SC ×2 (09:09→21:37)
[2020-03-16] MEDS: dexAMETHasone 10 MG/ML Vial 6 MG IV (09:09)
--- NOTE | 2020-03-16 09:40 | PN_ITS ---
Patient Problems: Active and Suspected Problems Acute respiratory failure with hypoxia (Acute) Pneumonia due to COVID-19 virus (Acute) Hyperglycemia (Acute) Abnormal LFTs (liver function tests) (Acute) Subjective: Off of BiPAP and currently on air Vo, feels better breathing easier. No issues overnight Vitals/I&O's: Vital Signs Temp Pulse Resp BP Pulse Ox 98.6 F 74 32 H 125/69 H 95 03/16/20 04:00 03/16/20 07:00 03/16/20 07:00 03/16/20 07:00 03/16/20 07:00 Oxygen Flow Rate (L/min) 60 Oxygen Delivery Method Airvo Weight: 202 lb 6.15 oz Body Mass Index (BMI) 28.4 Finger Stick Blood Glucose 119 Intake and Output for Last 24 Hours 03/14/20 03/15/20 03/16/20 23:59 23:59 23:59 Intake Total 2610 / 2610 3248.33 / 3248.33 88.34 / 88.34 Output Total 520 / 520 1650 / 1650 350 / 350 Balance 2089 / 2089 1598.33 / 1598.33 -261.66 / -261.66 General: Alert, Oriented x3, Cooperative, No apparent distress HEENT: Atraumatic, PERRLA, EOMI, Normocephalic Oral: Moist Mucosa Neck: Supple, No JVD Lungs: Normal air movement, No rhonchi, No wheeze, No rales, Diminished, tachypneic Cardiovascular: Regular rate and rhythm, Normal S1, Normal S2, No murmurs Abdomen: Soft, Non Tender, Non-Distended, No Hepato-splenomegaly Extremities: No edema, Capillary Refill Less than 3 Seconds Skin: No rashes, No breakdown, Incision - Right upper back no erythema surrounding incision. Packing removed monitored by wound care nurse Neurological: Neuro grossly intact, Sensory exam intact to light touch and pain Psych/Mental Status: Normal Affect, Appropriate Microbiology Past 72 Hours 03/15/20 14:10 Wound - Back Gram Stain - Final 03/14/20 07:55 Urine, Clean Catch Urine Culture - Preliminary Culture exhibits no growth. 03/14/20 07:55 Urine, Clean Catch Legionella Antigen - Final 03/14/20 07:55 Urine, Clean Catch Streptococcus pneumoniae Antigen (M - Final 03/14/20 06:51 Mucosa - Nose Respiratory Panel (PCR) - Final Laboratory Results 03/15/20 12:45: Blood Type A POSITIVE 03/15/20 14:10: S.aureus Protein A PCR NEGATIVE, MRSA (PCR) Negative 03/16/20 04:40: WBC 11.3 H, RBC 4.14 L, Hgb 12.8 L, Hct 39.3 L, MCV 94.9 H, MCH 30.9, MCHC 32.6, RDW Std Deviation 49.7 H, RDW Coeff of Maxim 14.3, Plt Count 329, MPV 9.5 03/16/20 04:40: Sodium 142, Potassium 3.8, Chloride 107, Carbon Dioxide 27.0, Anion Gap 8, BUN 26 H, Creatinine 1.03, Estim Creat Clear Calc 74.12, Est GFR (MDRD) Af Amer 92, Est GFR (MDRD) Non-Af 76, BUN/Creatinine Ratio 25.2 H, Glucose 150 H, Calcium 8.4 L, Total Bilirubin 0.50, AST 235 H, ALT 199 H, Alkaline Phosphatase 119 H, Total Protein 7.1, Albumin 2.2 L, Globulin 4.9 H, Albumin/Globulin Ratio 0.4 L Current Medications Dexamethasone Sodium Phosphate (Dexamethasone 10 Mg/Ml Vial) 6 mg IV DAILY [facility] Last Admin: 03/16/20 09:09 Dose: 6 mg Documented by: Enoxaparin Sodium (Enoxaparin 100 Mg/Ml Syringe) 90 mg SC BID [facility] Last Admin: 03/16/20 09:09 Dose: 90 mg Documented by: Sodium Chloride () 1,000 mls @ 100 mls/hr IV .Q10H [facility] Last Admin: 03/16/20 01:00 Dose: 100 mls/hr Documented by: Remdesivir (Investigational) (100 mg/ Sodium Chloride) 250 mls @ 125 mls/hr IV DAILY [facility]; Protocol Stop: 03/19/20 11:59 Influenza Virus Vaccine Quadrival (Influenza Vaccine (6mos+)/Pf 0.5 Ml Syringe) 0.5 ml IM .ONCE ONE Stop: 03/17/20 10:01 Ondansetron HCl (Ondansetron 4 Mg/2 Ml Vial) 4 mg IV Q8H PRN PRN PRN Reason: NAUSEA/VOMITING Sodium Chloride (0.9% Saline Lock 10 Ml Syringe) 10 - 40 ml IV UD PRN PRN Reason: SALINE FLUSH Last Admin: 03/16/20 09:09 Dose: 20 ml Documented by: STROKE Vital Signs/Narrative: Vital Signs Pulse Resp BP Pulse Ox 03/16/20 07:00 74 32 H 125/69 H 95 03/16/20 06:48 96 03/16/20 06:00 69 37 H 122/77 H 95 Medical Necessity - Tobacco Use Smoking Status: Never smoker Tobacco Use: Non-smoker Assessment/Plan All Active Problems Acute respiratory failure with hypoxia (Acute) Pneumonia due to COVID-19 virus (Acute) Hyperglycemia (Acute) Acute pancreatitis (Acute) Abnormal LFTs (liver function tests) (Acute) 1. Severe sepsis secondary to acute Covid pneumonia with acute hypoxic respiratory failure/UTI/elevated troponin secondary to demand ischemia -Per report his oxygen saturations were in the 70s while on a nonrebreather prior to being initiated on BiPAP therapy which has stabilized his oxygen saturations -We will consult the compressor station engineer as well as infectious disease for likely initiation of convalescent plasma and remdesivir -We will initiate him on Decadron urine culture exhibits no growth therefore Rocephin discontinued -Urine strep and Legionella antigens are pending -D-dimer is a little bit elevated however CTA was negative for a PE -His troponin started climbing down, therefore likely demand ischemia from his hypoxia. 2. Right upper back abscess -He had a large boil on his back which was lanced by his physician 1 to 2 weeks ago -Packing removed, continue to monitor -We will consult wound care for evaluation and management DVT: Therapeutic Lovenox Inpatient E&M: [id number] [facility] L2
--- NOTE | 2020-03-16 10:16 | PCM.PN.INT ---
Subjective: Patient did okay overnight. Patient has been switched to Airvo, but is requiring 94% FiO2 to maintain saturations. Patient subjectively feels better today compared to yesterday. Patient did receive remdesivir and adolescent serum overnight without complications. Patient overall feels that he benefited from BiPAP with sleep, but has been tolerating Airvo during the day. Patient is asking to eat. Patient is not reporting any pain. No nausea or vomiting have been reported. General: Alert, Oriented x3, Cooperative, - - Moderate conversational dyspnea. Appears older than stated age. HEENT: Atraumatic, PERRLA, EOMI, Normocephalic, - - Scleral injection without icterus Oral: Moist Mucosa, No Gingival or Mucosal Lesions/ Ulcerations Neck: Supple, No JVD, No Nodes, Trachea Midline Lungs: No rhonchi, No rales, Diminished, Wheezes, - - Symmetric expansion. No dullness to percussion. Cardiovascular: Regular rate, Regular Rhythm, Normal S1, Normal S2, No murmurs, No rub noted, No Gallop Abdomen: Bowel Sounds Present, Soft, Non Tender, Non-Distended Extremities: No clubbing, No cyanosis, No edema, Capillary Refill Less than 3 Seconds Skin: - - Wai appearance Musculoskeletal: No Tenderness to Palpation of Joints or Extremities Lymphatic: No Cervical, Supraclavicular, or Inguinal Adenopathy Neurological: Cranial nerves II-XII grossly intact, Neuro grossly intact, Motor Exam 5/5 strength throughout Psych/Mental Status: Alert and oriented to time, place, person, mood and affect Vital Signs Temp Pulse Resp BP Pulse Ox 37.0 C 74 32 H 125/69 H 95 03/16/20 04:00 03/16/20 07:00 03/16/20 07:00 03/16/20 07:00 03/16/20 07:00 Oxygen Flow Rate (L/min) 60 Oxygen Delivery Method Airvo Weight: 91.8 kg Body Mass Index (BMI) 28.4 Finger Stick Blood Glucose 119 Intake and Output for Last 24 Hours 03/14/20 03/15/20 03/16/20 23:59 23:59 23:59 Intake Total 2610 / 2610 3248.33 / 3248.33 88.34 / 88.34 Output Total 520 / 520 1650 / 1650 350 / 350 Balance 2089 1598.33 / 1598.33 -261.66 / -261.66 Labs (Last 48 Hours) 03/14/20 03/14/20 03/14/20 07:55 11:35 15:00 WBC RBC Hgb Hct MCV MCH MCHC RDW Std Deviation RDW Coeff of Maxim Plt Count MPV Immature Gran % (Auto) Neut % (Auto) Lymph % (Auto) [place] % (Auto) Eos % (Auto) Baso % (Auto) Absolute Neuts (auto) Absolute Lymphs (auto) Nucleated RBC % Sodium Potassium Chloride Carbon Dioxide Anion Gap BUN Creatinine Estim Creat Clear Calc Est GFR (MDRD) Af Amer Est GFR (MDRD) Non-Af BUN/Creatinine Ratio Glucose Lactic Acid 2.4 H* Calcium Total Bilirubin AST ALT Alkaline Phosphatase Troponin I 0.945 H* Total Protein Albumin Globulin Albumin/Globulin Ratio Urine Color Kathia Urine Clarity Clear Urine pH 5.0 Ur Specific [place] 1.020 Urine Protein 500 H Urine Glucose (UA) Normal Urine Ketones 5 H Urine Occult Blood 250 H Urine Nitrite Positive H Urine Bilirubin 1 H Urine Urobilinogen 4 H Ur Leukocyte Esterase 25 H Urine RBC 10-25 SEEN Urine WBC 0-5 SEEN Ur Squamous Epith Cells 0-5 SEEN Urine Bacteria 3+ Fine Granular Casts 10-25 SEEN Urine Mucus 2+ S.aureus Protein A PCR MRSA (PCR) Blood Type 03/14/20 03/14/20 03/15/20 18:45 20:50 03:30 WBC 9.4 RBC 4.56 L Hgb 14.1 Hct 43.7 MCV 95.8 H MCH 30.9 MCHC 32.3 RDW Std Deviation 49.1 H RDW Coeff of Maxim 13.9 Plt Count 255 MPV 9.0 Immature Gran % (Auto) 0.600 Neut % (Auto) 87.5 H Lymph % (Auto) 8.5 L [place] % (Auto) 3.2 Eos % (Auto) 0.0 Baso % (Auto) 0.2 Absolute Neuts (auto) 8.2 H Absolute Lymphs (auto) 0.80 L Nucleated RBC % 0 Sodium Potassium Chloride Carbon Dioxide Anion Gap BUN Creatinine Estim Creat Clear Calc Est GFR (MDRD) Af Amer Est GFR (MDRD) Non-Af BUN/Creatinine Ratio Glucose Lactic Acid Calcium Total Bilirubin AST ALT Alkaline Phosphatase Troponin I 0.950 H* 0.959 H* Total Protein Albumin Globulin Albumin/Globulin Ratio Urine Color Urine Clarity Urine pH Ur Specific [place] Urine Protein Urine Glucose (UA) Urine Ketones Urine Occult Blood Urine Nitrite Urine Bilirubin Urine Urobilinogen Ur Leukocyte Esterase Urine RBC Urine WBC Ur Squamous Epith Cells Urine Bacteria Fine Granular Casts Urine Mucus S.aureus Protein A PCR MRSA (PCR) Blood Type 03/15/20 03/15/20 03/15/20 03:30 12:45 14:10 WBC RBC Hgb Hct MCV MCH MCHC RDW Std Deviation RDW Coeff of Maxim Plt Count MPV Immature Gran % (Auto) Neut % (Auto) Lymph % (Auto) [place] % (Auto) Eos % (Auto) Baso % (Auto) Absolute Neuts (auto) Absolute Lymphs (auto) Nucleated RBC % Sodium 140 Potassium 4.9 Chloride 106 Carbon Dioxide 26.0 Anion Gap 8 BUN 26 H Creatinine 1.29 Estim Creat Clear Calc 59.18 Est GFR (MDRD) Af Amer 71 Est GFR (MDRD) Non-Af 59 L BUN/Creatinine Ratio 20.2 H Glucose 212 H Lactic Acid Calcium 8.6 Total Bilirubin AST ALT Alkaline Phosphatase Troponin I Total Protein Albumin Globulin Albumin/Globulin Ratio Urine Color Urine Clarity Urine pH Ur Specific [place] Urine Protein Urine Glucose (UA) Urine Ketones Urine Occult Blood Urine Nitrite Urine Bilirubin Urine Urobilinogen Ur Leukocyte Esterase Urine RBC Urine WBC Ur Squamous Epith Cells Urine Bacteria Fine Granular Casts Urine Mucus S.aureus Protein A PCR NEGATIVE MRSA (PCR) Negative Blood Type A POSITIVE 03/16/20 03/16/20 04:40 04:40 WBC 11.3 H RBC 4.14 L Hgb 12.8 L Hct 39.3 L MCV 94.9 H MCH 30.9 MCHC 32.6 RDW Std Deviation 49.7 H RDW Coeff of Maxim 14.3 Plt Count 329 MPV 9.5 Immature Gran % (Auto) Neut % (Auto) Lymph % (Auto) [place] % (Auto) Eos % (Auto) Baso % (Auto) Absolute Neuts (auto) Absolute Lymphs (auto) Nucleated RBC % Sodium 142 Potassium 3.8 Chloride 107 Carbon Dioxide 27.0 Anion Gap 8 BUN 26 H Creatinine 1.03 Estim Creat Clear Calc 74.12 Est GFR (MDRD) Af Amer 92 Est GFR (MDRD) Non-Af 76 BUN/Creatinine Ratio 25.2 H Glucose 150 H Lactic Acid Calcium 8.4 L Total Bilirubin 0.50 AST 235 H ALT 199 H Alkaline Phosphatase 119 H Troponin I Total Protein 7.1 Albumin 2.2 L Globulin 4.9 H Albumin/Globulin Ratio 0.4 L Urine Color Urine Clarity Urine pH Ur Specific [place] Urine Protein Urine Glucose (UA) Urine Ketones Urine Occult Blood Urine Nitrite Urine Bilirubin Urine Urobilinogen Ur Leukocyte Esterase Urine RBC Urine WBC Ur Squamous Epith Cells Urine Bacteria Fine Granular Casts Urine Mucus S.aureus Protein A PCR MRSA (PCR) Blood Type Microbiology 03/14/20 07:55 Urine, Clean Catch Urine Culture - Final Alpha Hemolytic Streptococcus 03/15/20 14:10 Wound - Back Gram Stain - Final 03/14/20 07:55 Urine, Clean Catch Legionella Antigen - Final 03/14/20 07:55 Urine, Clean Catch Streptococcus pneumoniae Antigen (M - Final 03/14/20 06:51 Mucosa - Nose Respiratory Panel (PCR) - Final Medical Necessity - Tobacco Use Smoking Status: Never smoker Tobacco Use: Non-smoker Assessment/Plan All Active Problems Acute respiratory failure with hypoxia (Acute) Pneumonia due to COVID-19 virus (Acute) Hyperglycemia (Acute) Acute pancreatitis (Acute) Abnormal LFTs (liver function tests) (Acute) RECOMMENDATIONS: 1. Continue therapeutic anticoagulation, empiric antibiotics, remdesivir 2. Wean oxygen as tolerated 3. Attempt volume restriction if possible 4. Monitor liver function closely given remdesivir 5. Consider culture of back abscess if any drainage is noted 6. Confirmed CODE STATUS DNR Comfort Care arrest with intubation IMPRESSIONS: 1. Acute hypoxic respiratory failure secondary to COVID-19 pneumonia Patient requiring significant amounts of oxygen to asked that maintain appropriate saturations. Patient does not have a history of underlying lung pathology, but does have groundglass opacities bilaterally consistent with COVID-19 pneumonia. Patient did receive convalescent serum and initiation of remdesivir. We will have to watch liver function closely as patient does have a slight increase in LFTs. Clinical suspicion for congestive hepatitis, but Remdesivir has been associated with liver dysfunction. Antibiotics per infectious disease 2. Severe sepsis secondary to COVID-19 and possible UTI Patient with severe sepsis on presentation. Patient appears to be improving with control of hypoxia. Urine was suggestive of an UTI, but culture appears to be normal. Further antibiotics to infectious disease. Infectious disease has been consulted. Patient does have a history of a recent back abscess, but this does not appear to be acutely inflamed. If exudate noted, culture would be reasonable to direct systemic antibiotics. 3. Elevated troponin secondary to supply demand mismatch Patient with some elevated troponins, but given the lack of ST changes and profound hypoxia on presentation, supply demand mismatch is suspected. Patient will be placed on systemic anticoagulation for problem #1. Patient may benefit from a stress test as an outpatient, but would defer to PCP. Okay to hold off on cardiology consult from my perspective. 4. Acute kidney injury Improving. Previous baseline creatinine was approximately 0.7. Patient is making good urine at this time. No indication for renal replacement therapy. Continue to monitor electrolytes and replete as necessary. TIME: 32 minutes critical care time spent addressing patient's acute hypoxic respiratory failure, severe sepsis, elevated troponin, acute kidney injury, review of all data and collaboration with care team (8:45 AM to 9:45 AM) [id number] Critical care first hour
--- NOTE | 2020-03-16 15:15 | PCM.PN.ID ---
Patient Problems: Active and Suspected Problems Acute respiratory failure with hypoxia (Acute) Pneumonia due to COVID-19 virus (Acute) Hyperglycemia (Acute) Abnormal LFTs (liver function tests) (Acute) Subjective: High O2 reqs, but feeling better today, less dyspnea, no fever, no n/v/d - Physical Exam Vitals/I&O's: Vital Signs Temp Pulse Resp BP Pulse Ox 99.2 F H 76 30 H 128/76 H 92 03/16/20 12:00 03/16/20 13:00 03/16/20 13:00 03/16/20 13:00 03/16/20 13:00 Oxygen Flow Rate (L/min) 60 Oxygen Delivery Method Airvo Weight: 91.8 kg Body Mass Index (BMI) 28.4 Finger Stick Blood Glucose 119 Intake and Output for Last 24 Hours 03/14/20 03/15/20 03/16/20 23:59 23:59 23:59 Intake Total 2610 / 2610 3248.33 / 3248.33 1795.01 / 1795.01 Output Total 520 / 520 1650 / 1650 975 / 975 Balance 209 / 2090 1598.33 / 1598.33 820.01 / 820.01 General: Alert, Cooperative, No apparent distress Lungs: Diminished Cardiovascular: Regular rate, Regular Rhythm Abdomen: Soft, Non Tender, Non-Distended Skin: No rashes Microbiology Past 72 Hours 03/15/20 14:10 Wound - Back Gram Stain - Final 03/15/20 14:10 Wound - Back Wound Culture - Preliminary Gram positive rob 03/14/20 07:05 Blood Culture (Wb) - Anticubital Left Blood Culture - Preliminary No growth in 48 hours. 03/14/20 06:55 Blood Culture (Wb) - Right Hand Blood Culture - Preliminary No growth in 48 hours. 03/14/20 07:55 Urine, Clean Catch Urine Culture - Final Alpha Hemolytic Streptococcus 03/14/20 07:55 Urine, Clean Catch Legionella Antigen - Final 03/14/20 07:55 Urine, Clean Catch Streptococcus pneumoniae Antigen (M - Final 03/14/20 06:51 Mucosa - Nose Respiratory Panel (PCR) - Final Laboratory Results 03/14/20 07:55: Urine Color Kathia, Urine Clarity Clear, Urine pH 5.0, Ur Specific [place] 1.020, Urine Protein 500 H, Urine Glucose (UA) Normal, Urine Ketones 5 H, Urine Occult Blood 250 H, Urine Nitrite Positive H, Urine Bilirubin 1 H, Urine Urobilinogen 4 H, Ur Leukocyte Esterase 25 H, Urine RBC 10-25 SEEN, Urine WBC 0-5 SEEN, Ur Squamous Epith Cells 0-5 SEEN, Urine Bacteria 3+, Fine Granular Casts 10-25 SEEN, Urine Mucus 2+ 03/15/20 12:45: Blood Type A POSITIVE 03/15/20 14:10: S.aureus Protein A PCR NEGATIVE, MRSA (PCR) Negative 03/16/20 04:40: WBC 11.3 H, RBC 4.14 L, Hgb 12.8 L, Hct 39.3 L, MCV 94.9 H, MCH 30.9, MCHC 32.6, RDW Std Deviation 49.7 H, RDW Coeff of Maxim 14.3, Plt Count 329, MPV 9.5 03/16/20 04:40: Sodium 142, Potassium 3.8, Chloride 107, Carbon Dioxide 27.0, Anion Gap 8, BUN 26 H, Creatinine 1.03, Estim Creat Clear Calc 74.12, Est GFR (MDRD) Af Amer 92, Est GFR (MDRD) Non-Af 76, BUN/Creatinine Ratio 25.2 H, Glucose 150 H, Calcium 8.4 L, Total Bilirubin 0.50, AST 235 H, ALT 199 H, Alkaline Phosphatase 119 H, Total Protein 7.1, Albumin 2.2 L, Globulin 4.9 H, Albumin/Globulin Ratio 0.4 L 03/16/20 10:30: Troponin I 0.168 H Current Medications Dexamethasone Sodium Phosphate (Dexamethasone 10 Mg/Ml Vial) 6 mg IV DAILY TELMA Stop: 03/23/20 10:01 Last Admin: 03/16/20 09:09 Dose: 6 mg Documented by: Enoxaparin Sodium (Enoxaparin 100 Mg/Ml Syringe) 90 mg SC BID TELMA Last Admin: 03/16/20 09:09 Dose: 90 mg Documented by: Sodium Chloride () 1,000 mls @ 100 mls/hr IV .Q10H TELMA Last Infusion: 03/16/20 12:41 Dose: 100 mls/hr Documented by: Remdesivir (Investigational) (100 mg/ Sodium Chloride) 250 mls @ 125 mls/hr IV DAILY TELMA; Protocol Stop: 03/19/20 11:59 Last Infusion: 03/16/20 12:41 Dose: Infused Documented by: Influenza Virus Vaccine Quadrival (Influenza Vaccine (6mos+)/Pf 0.5 Ml Syringe) 0.5 ml IM .ONCE ONE Stop: 03/17/20 10:01 Ondansetron HCl (Ondansetron 4 Mg/2 Ml Vial) 4 mg IV Q8H PRN PRN PRN Reason: NAUSEA/VOMITING Sodium Chloride (0.9% Saline Lock 10 Ml Syringe) 10 - 40 ml IV UD PRN PRN Reason: SALINE FLUSH Last Admin: 03/16/20 10:41 Dose: 30 ml Documented by: Medical Necessity - Tobacco Use Smoking Status: Never smoker Tobacco Use: Non-smoker Route of nutrition/ use of supplements: [] Nutritional Intake: [] IV Site: [] Carrillo Catheter: [] - Assessment/Plan Antibiotics: [] Assessment/Plan: [] Active and Suspected Problems Acute respiratory failure with hypoxia (Acute) Pneumonia due to COVID-19 virus (Acute) Hyperglycemia (Acute) Abnormal LFTs (liver function tests) (Acute) Sat of 78% on arrival. Sx started a week prior to admit 03/14. recovering but was never tested. On dex, on therapeutic lovenox, remdesivir, received plasma 03/15. CT showed no PE. Feeling better but high O2 reqs today. If ALT continues to rise, will have to stop remdesivir. Will follow
--- NOTE | 2020-03-16 19:17 | CPS ---
FiO2 on BiPAP increased from 60% to 70% for pulse ox reading 88%. Patient was transitioned from AirVO to BiPAP for pulse ox in 80s and increased WOB.
[2020-03-17] VITALS (33 sets, daily range): BP systolic 113–145; BP diastolic 58–77; PULSE 60–96; RESP 12–48; TEMP 36.6–38.4; O2SAT 90–99
[2020-03-17] MEDS: 0.9% Normal Saline 1,000 ML 100 ML IV (02:45)
[2020-03-17] MEDS: 0.9% Saline Lock 10 ML Syringe IV (04:14)
[2020-03-17 04:40] LABS: Hematocrit 34.9 % (40-54); Hemoglobin 11.3 g/dL (13.0-16.5); Mean Corp Hgb Conc 32.4 g/dL (32-36); Mean Corpuscular Hgb 30.8 pg (27.0-32.0); Mean Corpuscular Volume 95.1 fL (80-94); Platelet Count 304 K/mm3 (150-450); RBC Distribution Width CV 14.6 % (11.6-14.6); RBC Distribution Width SD 50.7 fl (35.1-43.9); Red Blood Count 3.67 M/mm3 (4.6-6.2); White Blood Count 10.1 K/mm3 (4.4-11.0)
[2020-03-17 05:02] LABS: ALB/GLOB Ratio 0.4 RATIO (0.9-2.4); AST(SGOT) 139 U/L (15-37); Alanine Aminotransfer ALT/SGPT 189 U/L (16-61); Albumin, Serum 1.7 g/dL (3.2-5.0); Alkaline Phosphatase 93 U/L (45-117); Anion Gap 6 (5-15); BUN 24 mg/dL (7-18); BUN/Creat Ratio 35.6 RATIO (10-20); Calcium,Total 6.9 mg/dL (8.5-10.1); Chloride 115 mmol/L (98-107); Creatinine, Serum 0.67 mg/dL (0.70-1.30); EST Glomerular Filtration Rate 125 mL/min (>60); Est Glom Filt Rate - Afr Amer 151 mL/min (>60); Estimated Creatinine Clearance 76.35 ml/min; Globulin 3.8 g/dL (2.2-4.2); Glucose 114 mg/dL (74-106); Potassium 3.2 mmol/L (3.5-5.1); Protein, Total 5.5 g/dL (6.4-8.2); Sodium Level 145 mmol/L (136-145)
[2020-03-17] MEDS: Potassium Chloride 10mEq/100mL 10 MEQ/100 ML IV.SOLN. 100 MEQ IV BOLUS ×4 (06:20→09:52)
--- NOTE | 2020-03-17 08:10 | PN_ITS ---
Subjective: Patient did okay overnight. Patient remains BiPAP/Airvo dependent with oxygen requirements between 80 and 95%. Patient overall feels subjectively slightly improved compared to yesterday, but does feel short of breath with any movement. Patient is not reporting any bowel issues. General: Alert, Oriented x3, Cooperative, - - Moderate conversational dyspnea. Appears [place]. HEENT: Atraumatic, PERRLA, EOMI, Normocephalic, - - No scleral icterus, but some injection noted. Oral: Moist Mucosa, No Gingival or Mucosal Lesions/ Ulcerations Neck: Supple, No JVD, No Nodes, Trachea Midline Lungs: No rhonchi, No wheeze, No rales, Diminished, - - Symmetric expansion. No dullness to percussion. Cardiovascular: Regular rate, Regular Rhythm, Normal S1, Normal S2, No murmurs, No rub noted, No Gallop Abdomen: Bowel Sounds Present, Soft, Non Tender, Non-Distended Extremities: No clubbing, No cyanosis, Edema - Trace lower extremity Skin: Ulcer/ Wound - Appears stable on his back Musculoskeletal: No Tenderness to Palpation of Joints or Extremities Lymphatic: No Cervical, Supraclavicular, or Inguinal Adenopathy Neurological: Cranial nerves II-XII grossly intact, Neuro grossly intact, Motor Exam 5/5 strength throughout Psych/Mental Status: Anxious, Flat Affect Vital Signs Temp Pulse Resp BP Pulse Ox 36.9 C 73 38 H 125/72 H 94 03/17/20 04:00 03/17/20 07:00 03/17/20 07:00 03/17/20 07:00 03/17/20 07:00 Oxygen Flow Rate (L/min) 60 Oxygen Delivery Method Airvo Weight: 92.8 kg Body Mass Index (BMI) 28.4 Finger Stick Blood Glucose 119 Intake and Output for Last 24 Hours 03/15/20 03/16/20 03/17/20 23:59 23:59 23:59 Intake Total 3248.33 / 3248.33 2815.01 / 2815.01 1575.00 / 1575.00 Output Total 1650 / 1650 1900 / 2075 450 / 450 Balance 1598.33 / 1598.33 915.01 / 740.01 1125.00 / 1125.00 Labs (Last 48 Hours) 03/14/20 03/15/2020 07:55 12:45 14:10 WBC RBC Hgb Hct MCV MCH MCHC RDW Std Deviation RDW Coeff of Maxim Plt Count MPV Sodium Potassium Chloride Carbon Dioxide Anion Gap BUN Creatinine Estim Creat Clear Calc Est GFR (MDRD) Af Amer Est GFR (MDRD) Non-Af BUN/Creatinine Ratio Glucose Calcium Total Bilirubin AST ALT Alkaline Phosphatase Troponin I Total Protein Albumin Globulin Albumin/Globulin Ratio Urine Color Kathia Urine Clarity Clear Urine pH 5.0 Ur Specific [place] 1.020 Urine Protein 500 H Urine Glucose (UA) Normal Urine Ketones 5 H Urine Occult Blood 250 H Urine Nitrite Positive H Urine Bilirubin 1 H Urine Urobilinogen 4 H Ur Leukocyte Esterase 25 H Urine RBC 10-25 SEEN Urine WBC 0-5 SEEN Ur Squamous Epith Cells 0-5 SEEN Urine Bacteria 3+ Fine Granular Casts 10-25 SEEN Urine Mucus 2+ S.aureus Protein A PCR NEGATIVE MRSA (PCR) Negative Blood Type A POSITIVE 03/16/20 03/16/20 03/16/20 04:40 04:40 10:30 WBC 11.3 H RBC 4.14 L Hgb 12.8 L Hct 39.3 L MCV 94.9 H MCH 30.9 MCHC 32.6 RDW Std Deviation 49.7 H RDW Coeff of Maxim 14.3 Plt Count 329 MPV 9.5 Sodium 142 Potassium 3.8 Chloride 107 Carbon Dioxide 27.0 Anion Gap 8 BUN 26 H Creatinine 1.03 Estim Creat Clear Calc 74.12 Est GFR (MDRD) Af Amer 92 Est GFR (MDRD) Non-Af 76 BUN/Creatinine Ratio 25.2 H Glucose 150 H Calcium 8.4 L Total Bilirubin 0.50 AST 235 H ALT 199 H Alkaline Phosphatase 119 H Troponin I 0.168 H Total Protein 7.1 Albumin 2.2 L Globulin 4.9 H Albumin/Globulin Ratio 0.4 L Urine Color Urine Clarity Urine pH Ur Specific [place] Urine Protein Urine Glucose (UA) Urine Ketones Urine Occult Blood Urine Nitrite Urine Bilirubin Urine Urobilinogen Ur Leukocyte Esterase Urine RBC Urine WBC Ur Squamous Epith Cells Urine Bacteria Fine Granular Casts Urine Mucus S.aureus Protein A PCR MRSA (PCR) Blood Type 03/17/20 03/17/20 04:20 04:20 WBC 10.1 RBC 3.67 L Hgb 11.3 L Hct 34.9 L MCV 95.1 H MCH 30.8 MCHC 32.4 RDW Std Deviation 50.7 H RDW Coeff of Maxim 14.6 Plt Count 304 MPV 9.0 Sodium 145 Potassium 3.2 L Chloride 115 H Carbon Dioxide 24.0 Anion Gap 6 BUN 24 H Creatinine 0.67 L Estim Creat Clear Calc 76.35 Est GFR (MDRD) Af Amer 151 Est GFR (MDRD) Non-Af 125 BUN/Creatinine Ratio 35.6 H Glucose 114 H Calcium 6.9 L Total Bilirubin 0.40 AST 139 H ALT 189 H Alkaline Phosphatase 93 Troponin I Total Protein 5.5 L Albumin 1.7 L Globulin 3.8 Albumin/Globulin Ratio 0.4 L Urine Color Urine Clarity Urine pH Ur Specific [place] Urine Protein Urine Glucose (UA) Urine Ketones Urine Occult Blood Urine Nitrite Urine Bilirubin Urine Urobilinogen Ur Leukocyte Esterase Urine RBC Urine WBC Ur Squamous Epith Cells Urine Bacteria Fine Granular Casts Urine Mucus S.aureus Protein A PCR MRSA (PCR) Blood Type Microbiology 03/15/20 14:10 Wound - Back Gram Stain - Final 03/15/20 14:10 Wound - Back Wound Culture - Final Corynebacterium minutissimum 03/14/20 07:05 Blood Culture (Wb) - Anticubital Left Blood Culture - Preliminary No growth in 48 hours. 03/14/20 06:55 Blood Culture (Wb) - Right Hand Blood Culture - Preliminary No growth in 48 hours. 03/14/20 07:55 Urine, Clean Catch Urine Culture - Final Alpha Hemolytic Streptococcus Medical Necessity - Tobacco Use Smoking Status: Never smoker Tobacco Use: Non-smoker Assessment/Plan All Active Problems Acute respiratory failure with hypoxia (Acute) Pneumonia due to COVID-19 virus (Acute) Hyperglycemia (Acute) Acute pancreatitis (Acute) Abnormal LFTs (liver function tests) (Acute) RECOMMENDATIONS: 1. Continue therapeutic anticoagulation, systemic steroids, remdesivir 2. Wean oxygen as tolerated 3. Attempt volume restriction if possible 4. Monitor liver function closely given remdesivir 5. Await species and sensitivities of drainage. 6. Confirmed CODE STATUS DNR Comfort Care arrest with intubation IMPRESSIONS: 1. Acute hypoxic respiratory failure secondary to COVID-19 pneumonia Patient requiring significant amounts of oxygen to asked that maintain appropriate saturations. Patient does not have a history of underlying lung pathology, but does have groundglass opacities bilaterally consistent with COVID-19 pneumonia. Patient did receive convalescent serum and remdesivir. We will have to watch liver function closely as patient does have a slight increase in LFTs. He is appear to be stable at this time. Clinical suspicion for congestive hepatitis, but Remdesivir has been associated with liver dysfunction. 2. Severe sepsis secondary to COVID-19 and possible UTI Patient with severe sepsis on presentation. Patient appears to be improving with control of hypoxia. Urine was suggestive of an UTI, but culture appears to be normal. Patient is not currently on systemic antibiotics. Patient does have gram-positive growing from back wound, but this is readily draining, so likely does not require antibiotics. Infectious disease has been consulted. Patient does have a history of a recent back abscess, but this does not appear to be acutely inflamed. 3. Elevated troponin secondary to supply demand mismatch Patient with some elevated troponins, but given the lack of ST changes and profound hypoxia on presentation, supply demand mismatch is suspected. Patient will be placed on systemic anticoagulation for problem #1. Patient may benefit from a stress test as an outpatient, but would defer to PCP. Okay to hold off on cardiology consult from my perspective. 4. Acute kidney injury Resolved. Previous baseline creatinine was approximately 0.7. Patient is making good urine at this time. No indication for renal replacement therapy. Continue to monitor electrolytes and replete as necessary. TIME: 33 minutes critical care time spent addressing patient's acute hypoxic respiratory failure, severe sepsis, elevated troponin, acute kidney injury, review of all data and collaboration with care team (5:45 AM to 6:45 AM) [phone]: [id number] Critical care first hour
--- NOTE | 2020-03-17 11:25 | PN_ITS ---
Patient Problems: Active and Suspected Problems Acute respiratory failure with hypoxia (Acute) Pneumonia due to COVID-19 virus (Acute) Hyperglycemia (Acute) Abnormal LFTs (liver function tests) (Acute) Subjective: He is on BiPAP again but states that he is breathing better than he did yesterday. Vitals/I&O's: Vital Signs Temp Pulse Resp BP Pulse Ox 98.4 F 96 39 H 131/71 H 91 03/17/20 04:00 03/17/20 10:00 03/17/20 10:00 03/17/20 10:00 03/17/20 10:00 Oxygen Flow Rate (L/min) 70 Oxygen Delivery Method Bi-pap Weight: 204 lb 9.423 oz Body Mass Index (BMI) 28.4 Finger Stick Blood Glucose 119 Intake and Output for Last 24 Hours 03/15/20 03/16/20 03/17/20 23:59 23:59 23:59 Intake Total 3248.33 / 3248.33 2815.01 / 2815.01 1775.00 / 1775.00 Output Total 1650 / 1650 1900 / 2075 700 / 700 Balance 1598.33 / 1598.33 915.01 / 740.01 1075.00 / 1075.00 General: Alert, Oriented x3, Cooperative, No apparent distress HEENT: Atraumatic, PERRLA, EOMI, Normocephalic Oral: Moist Mucosa Neck: Supple, No JVD Lungs: Normal air movement, No rhonchi, No wheeze, No rales, Diminished, tachypneic Cardiovascular: Regular rate and rhythm, Normal S1, Normal S2, No murmurs Abdomen: Soft, Non Tender, Non-Distended, No Hepato-splenomegaly Extremities: No edema, Capillary Refill Less than 3 Seconds Skin: No rashes, No breakdown, Incision - Right upper back no erythema surrounding incision. Packing removed monitored by wound care nurse Neurological: Neuro grossly intact, Sensory exam intact to light touch and pain Psych/Mental Status: Normal Affect, Appropriate Microbiology Past 72 Hours 03/15/20 14:10 Wound - Back Gram Stain - Final 03/15/20 14:10 Wound - Back Wound Culture - Final Corynebacterium minutissimum 03/14/20 07:05 Blood Culture (Wb) - Anticubital Left Blood Culture - Preliminary No growth in 48 hours. 10/25/20 06:55 Blood Culture (Wb) - Right Hand Blood Culture - Preliminary No growth in 48 hours. 03/14/20 07:55 Urine, Clean Catch Urine Culture - Final Alpha Hemolytic Streptococcus 03/14/20 07:55 Urine, Clean Catch Legionella Antigen - Final 03/14/20 07:55 Urine, Clean Catch Streptococcus pneumoniae Antigen (M - Final 03/14/20 06:51 Mucosa - Nose Respiratory Panel (PCR) - Final Laboratory Results 03/17/20 04:20: WBC 10.1, RBC 3.67 L, Hgb 11.3 L, Hct 34.9 L, MCV 95.1 H, MCH 30.8, MCHC 32.4, RDW Std Deviation 50.7 H, RDW Coeff of Maxim 14.6, Plt Count 304, MPV 9.0 03/17/20 04:20: Sodium 145, Potassium 3.2 L, Chloride 115 H, Carbon Dioxide 24.0, Anion Gap 6, BUN 24 H, Creatinine 0.67 L, Estim Creat Clear Calc 76.35, Est GFR (MDRD) Af Amer 151, Est GFR (MDRD) Non-Af 125, BUN/Creatinine Ratio 35.6 H, Glucose 114 H, Calcium 6.9 L, Total Bilirubin 0.40, AST 139 H, ALT 189 H, Alkaline Phosphatase 93, Total Protein 5.5 L, Albumin 1.7 L, Globulin 3.8, Albumin/Globulin Ratio 0.4 L Current Medications Dexamethasone Sodium Phosphate (Dexamethasone 10 Mg/Ml Vial) 6 mg IV DAILY [facility] Stop: 03/23/20 10:01 Last Admin: 03/16/20 09:09 Dose: 6 mg Documented by: Enoxaparin Sodium (Enoxaparin 100 Mg/Ml Syringe) 90 mg SC BID [facility] Last Admin: 03/16/20 21:37 Dose: 90 mg Documented by: Sodium Chloride () 1,000 mls @ 100 mls/hr IV .Q10H [facility] Last Infusion: 03/17/20 06:20 Dose: 0 mls/hr Documented by: Remdesivir (Investigational) (100 mg/ Sodium Chloride) 250 mls @ 125 mls/hr IV DAILY [facility]; Protocol Stop: 03/19/20 11:59 Last Infusion: 03/16/20 12:41 Dose: Infused Documented by: Nutritional Formula (Lactose Free) (Ensure Clear 120 Ml Liquid) 240 ml PO TIDCM [facility] Ondansetron HCl (Ondansetron 4 Mg/2 Ml Vial) 4 mg IV Q8H PRN PRN PRN Reason: NAUSEA/VOMITING Sodium Chloride (0.9% Saline Lock 10 Ml Syringe) 10 - 40 ml IV UD PRN PRN Reason: SALINE FLUSH Last Admin: 03/17/20 04:14 Dose: 40 ml Documented by: STROKE Vital Signs/Narrative: Vital Signs Pulse Resp BP Pulse Ox 03/17/20 10:00 96 39 H 131/71 H 91 03/17/20 09:16 77 41 H 93 03/17/20 09:00 67 42 H 138/77 H 93 03/17/20 08:00 70 39 H 124/72 H 92 Medical Necessity - Tobacco Use Smoking Status: Never smoker Tobacco Use: Non-smoker Assessment/Plan All Active Problems Acute respiratory failure with hypoxia (Acute) Pneumonia due to COVID-19 virus (Acute) Hyperglycemia (Acute) Acute pancreatitis (Acute) Abnormal LFTs (liver function tests) (Acute) 1. Severe sepsis secondary to acute Covid pneumonia with acute hypoxic respiratory failure/UTI/elevated troponin secondary to demand ischemia -Per report his oxygen saturations were in the 70s while on a nonrebreather prior to being initiated on BiPAP therapy which has stabilized his oxygen saturations -We will consult the construction rep as well as infectious disease for likely initiation of convalescent plasma and remdesivir -We will initiate him on Decadron urine culture exhibits no growth therefore Rocephin discontinued -Urine strep and Legionella antigens are pending -D-dimer is a little bit elevated however CTA was negative for a PE -His troponin started climbing down, therefore likely demand ischemia from his hypoxia. 2. Right upper back abscess -He had a large boil on his back which was lanced by his physician 1 to 2 weeks ago -Packing removed, continue to monitor -We will consult wound care for evaluation and management DVT: Therapeutic Lovenox Inpatient E&M: 55389 Subs Hosp L2
[2020-03-17] MEDS: Enoxaparin 100 MG/ML Syringe 90 MG SC ×2 (12:34→22:57)
[2020-03-17] MEDS: dexAMETHasone 10 MG/ML Vial 6 MG IV (12:34)
[2020-03-17 13:05] LABS: Bedside Glucose 110 mg/dL (70-110)
[2020-03-17] MEDS: Acetaminophen 650 MG Suppository RECTAL (14:44)
--- NOTE | 2020-03-17 15:35 | PN.ID_ITS ---
Patient Problems: Active and Suspected Problems Acute respiratory failure with hypoxia (Acute) Pneumonia due to COVID-19 virus (Acute) Hyperglycemia (Acute) Abnormal LFTs (liver function tests) (Acute) Subjective: Feeling better today, no fever, no sputum, no n/v/d. - Physical Exam Vitals/I&O's: Vital Signs Temp Pulse Resp BP Pulse Ox 101.1 F H 92 45 H 133/63 H 96 03/17/20 12:00 03/17/20 14:00 03/17/20 14:00 03/17/20 14:00 03/17/20 14:00 Oxygen Flow Rate (L/min) 65 Oxygen Delivery Method Bi-pap Weight: 92.8 kg Body Mass Index (BMI) 28.4 Finger Stick Blood Glucose 119 Intake and Output for Last 24 Hours 03/15/20 03/16/20 03/17/20 23:59 23:59 23:59 Intake Total 3248.33 / 3248.33 2815.01 / 2815.01 1975.00 / 1974.00 Output Total 1650 / 1650 1900 / 2075 1100 / 1100 Balance 1598.33 / 1598.33 915.01 / 740.01 875.00 / 875.00 General: Alert, Cooperative, No apparent distress Lungs: Diminished Cardiovascular: Regular rate, Regular Rhythm Abdomen: Soft, Non Tender, Non-Distended Skin: No rashes Microbiology Past 72 Hours 03/15/20 14:10 Wound - Back Gram Stain - Final 03/15/20 14:10 Wound - Back Wound Culture - Final Corynebacterium minutissimum 03/14/20 07:05 Blood Culture (Wb) - Anticubital Left Blood Culture - Preliminary No growth in 48 hours. 03/14/20 06:55 Blood Culture (Wb) - Right Hand Blood Culture - Preliminary No growth in 48 hours. 03/14/20 07:55 Urine, Clean Catch Urine Culture - Final Alpha Hemolytic Streptococcus 03/14/20 07:55 Urine, Clean Catch Legionella Antigen - Final 03/14/20 07:55 Urine, Clean Catch Streptococcus pneumoniae Antigen (M - Final Laboratory Results 03/17/20 04:20: WBC 10.1, RBC 3.67 L, Hgb 11.3 L, Hct 34.9 L, MCV 95.1 H, MCH 30.8, MCHC 32.4, RDW Std Deviation 50.7 H, RDW Coeff of Maxim 14.6, Plt Count 304, MPV 9.0 03/17/20 04:20: Sodium 145, Potassium 3.2 L, Chloride 115 H, Carbon Dioxide 24.0, Anion Gap 6, BUN 24 H, Creatinine 0.67 L, Estim Creat Clear Calc 76.35, Est GFR (MDRD) Af Amer 151, Est GFR (MDRD) Non-Af 125, BUN/Creatinine Ratio 35.6 H, Glucose 114 H, Calcium 6.9 L, Total Bilirubin 0.40, AST 139 H, ALT 189 H, Alkaline Phosphatase 93, Total Protein 5.5 L, Albumin 1.7 L, Globulin 3.8, Albumin/Globulin Ratio 0.4 L 03/17/20 11:13: POC Glucose 110 Current Medications Acetaminophen (Acetaminophen 650 Mg Suppository) 650 mg RECTAL Q4H PRN PRN PRN Reason: TEMP > 100.5 F Last Admin: 03/17/20 14:44 Dose: 650 mg Documented by: Dexamethasone Sodium Phosphate (Dexamethasone 10 Mg/Ml Vial) 6 mg IV DAILY [facility] Stop: 03/23/20 10:01 Last Admin: 03/17/20 12:34 Dose: 6 mg Documented by: Enoxaparin Sodium (Enoxaparin 100 Mg/Ml Syringe) 90 mg SC BID [facility] Last Admin: 03/17/20 12:34 Dose: 90 mg Documented by: Sodium Chloride () 1,000 mls @ 100 mls/hr IV .Q10H [facility] Last Admin: 03/17/20 13:58 Dose: Not Given Documented by: Remdesivir (Investigational) (100 mg/ Sodium Chloride) 250 mls @ 125 mls/hr IV DAILY [facility]; Protocol Stop: 03/19/20 11:59 Last Admin: 03/17/20 13:11 Dose: 125 mls/hr Documented by: Nutritional Formula (Lactose Free) (Ensure Clear 120 Ml Liquid) 240 ml PO TIDCM [facility] Last Admin: 03/17/20 13:10 Dose: Not Given Documented by: Ondansetron HCl (Ondansetron 4 Mg/2 Ml Vial) 4 mg IV Q8H PRN PRN PRN Reason: NAUSEA/VOMITING Sodium Chloride (0.9% Saline Lock 10 Ml Syringe) 10 - 40 ml IV UD PRN PRN Reason: SALINE FLUSH Last Admin: 03/17/20 04:14 Dose: 40 ml Documented by: Medical Necessity - Tobacco Use Smoking Status: Never smoker Tobacco Use: Non-smoker Route of nutrition/ use of supplements: [] Nutritional Intake: [] IV Site: [] Carrillo Catheter: [] - Assessment/Plan Antibiotics: [] Assessment/Plan: [] Active and Suspected Problems Acute respiratory failure with hypoxia (Acute) Pneumonia due to COVID-19 virus (Acute) Hyperglycemia (Acute) Abnormal LFTs (liver function tests) (Acute) Sat of 78% on arrival. Sx started a week prior to admit 03/14. recovering but was never tested. On dex, on therapeutic lovenox, remdesivir, received plasma 03/15. CT showed no PE. Feeling better but still high O2 reqs today. ALT improved slightly today. Will follow
[2020-03-17] MEDS: Ensure Clear 120 ML Liquid 240 ML PO (16:49)
[2020-03-18] VITALS (42 sets, daily range): BP systolic 75–168; BP diastolic 23–75; PULSE 60–120; RESP 11–44; TEMP 36.1–37.2; O2SAT 47–99; BMI 28.2
[2020-03-18 04:41] LABS: Hemoglobin 13.1 g/dL (13.0-16.5); Mean Corp Hgb Conc 32.8 g/dL (32-36); Mean Corpuscular Hgb 30.5 pg (27.0-32.0); Mean Platelet Vol. 9.4 fl (6.2-12.0); Platelet Count 316 K/mm3 (150-450); RBC Distribution Width CV 14.8 % (11.6-14.6); RBC Distribution Width SD 50.4 fl (35.1-43.9)
[2020-03-18 04:56] LABS: ALB/GLOB Ratio 0.4 RATIO (0.9-2.4); AST(SGOT) 93 U/L (15-37); Alanine Aminotransfer ALT/SGPT 172 U/L (16-61); Alkaline Phosphatase 109 U/L (45-117); Anion Gap 6 (5-15); BUN 22 mg/dL (7-18); BUN/Creat Ratio 22.6 RATIO (10-20); Calcium,Total 8.3 mg/dL (8.5-10.1); Chloride 107 mmol/L (98-107); Creatinine, Serum 0.97 mg/dL (0.70-1.30); EST Glomerular Filtration Rate 82 mL/min (>60); Est Glom Filt Rate - Afr Amer 99 mL/min (>60); Estimated Creatinine Clearance 78.71 ml/min; Globulin 4.7 g/dL (2.2-4.2); Glucose 133 mg/dL (74-106); Potassium 3.9 mmol/L (3.5-5.1); Protein, Total 6.7 g/dL (6.4-8.2); Sodium Level 141 mmol/L (136-145)
[2020-03-18] MEDS: Propofol 10MG/Ml 1,000 MG/100 ML Bottle 5.5 MG CONT INF (10:47)
[2020-03-18] MEDS: Etomidate 20 MG/10 ML Vial IV (10:47)
--- NOTE | 2020-03-18 11:05 | RAD_ITS ---
STUDY: X-RAY CHEST REASON FOR EXAM: Male, 69 years old. ETT PLACEMENT TECHNIQUE: Single AP portable view of the chest. COMPARISON: Comparison is made with prior examination dated 03/14/2020. FINDINGS: An endotracheal tube is in situ. The tip is at 4.6 cm proximal to the river. A left-sided PICC line catheter is seen with the tip at the junction of the superior vena cava and right atrium. Since prior examination, there has been progressive bilateral airspace infiltration worse in the left lower lobe. There is no demonstrated pleural abnormality. Normal size heart. Normal mediastinum and [place]. Normal visualized pulmonary arteries. There is atherosclerotic tortuosity of the aortic arch and descending thoracic aorta. Normal visualized thoracic spine. Normal visualized ribs, clavicles, and shoulders. There is no demonstrated abnormality of the visualized soft tissue structures of the upper abdomen. RAD/Chest 1 View (Portable) IMPRESSION: The tip of the endotracheal tube is at 4.6 cm proximal to the river. Since prior study, there has been progressive patchy airspace disease involving both lungs worse in the left lower lobe. Electronically Signed: David Patel, at 11:28 EDT , Service support ,
[2020-03-18] MEDS: LORazepam 2 MG/ML Syringe IV (11:12)
--- NOTE | 2020-03-18 11:18 | PCM.PN.ID ---
Patient Problems: Active and Suspected Problems Acute respiratory failure with hypoxia (Acute) Pneumonia due to COVID-19 virus (Acute) Hyperglycemia (Acute) Abnormal LFTs (liver function tests) (Acute) Subjective: Worsening resp status, fever to 101 overnight, lethargic - Physical Exam Vitals/I&O's: Vital Signs Temp Pulse Resp BP Pulse Ox 98.7 F 107 H 31 H 168/75 H 90 03/18/20 08:00 03/18/20 10:00 03/18/20 10:00 03/18/20 10:00 03/18/20 10:00 Oxygen Flow Rate (L/min) 65 Oxygen Delivery Method Bi-pap Weight: 91.8 kg Body Mass Index (BMI) 28.4 Finger Stick Blood Glucose 119 Intake and Output for Last 24 Hours 03/16/20 03/17/20 03/18/20 23:59 23:59 23:59 Intake Total 2815.01 / 2815.01 3115.00 / 3115.00 0 / 0 Output Total 190 / 2074 1999 / 1999 300 / 300 Balance 915.01 / 740.01 1115.00 / 1115.00 -300 / -300 General: Lethargic Lungs: Diminished Cardiovascular: Tachycardic Abdomen: Soft, Non Tender, Non-Distended Skin: No rashes Microbiology Past 72 Hours 03/15/20 14:10 Wound - Back Gram Stain - Final 03/15/20 14:10 Wound - Back Wound Culture - Final Corynebacterium minutissimum 03/14/20 07:05 Blood Culture (Wb) - Anticubital Left Blood Culture - Preliminary No growth in 48 hours. 03/14/20 06:55 Blood Culture (Wb) - Right Hand Blood Culture - Preliminary No growth in 48 hours. 03/14/20 07:55 Urine, Clean Catch Urine Culture - Final Alpha Hemolytic Streptococcus Laboratory Results 03/17/20 11:13: POC Glucose 110 03/18/20 04:20: WBC 15.0 H, RBC 4.30 L, Hgb 13.1, Hct 40.0, MCV 93.0, MCH 30.5, MCHC 32.8, RDW Std Deviation 50.4 H, RDW Coeff of Maxim 14.8 H, Plt Count 316, MPV 9.4 03/18/20 04:20: Sodium 141, Potassium 3.9, Chloride 107, Carbon Dioxide 28.0, Anion Gap 6, BUN 22 H, Creatinine 0.97, Estim Creat Clear Calc 78.71, Est GFR (MDRD) Af Amer 99, Est GFR (MDRD) Non-Af 82, BUN/Creatinine Ratio 22.6 H, Glucose 133 H, Calcium 8.3 L, Total Bilirubin 1.00, AST 93 H, ALT 172 H, Alkaline Phosphatase 109, Total Protein 6.7, Albumin 2.0 L, Globulin 4.7 H, Albumin/Globulin Ratio 0.4 L Current Medications Acetaminophen (Acetaminophen 650 Mg Suppository) 650 mg RECTAL Q4H PRN PRN PRN Reason: TEMP > 100.5 F Last Admin: 03/17/20 14:44 Dose: 650 mg Documented by: Dexamethasone Sodium Phosphate (Dexamethasone 10 Mg/Ml Vial) 6 mg IV DAILY [facility] Stop: 03/23/20 10:01 Last Admin: 03/17/20 12:34 Dose: 6 mg Documented by: Enoxaparin Sodium (Enoxaparin 100 Mg/Ml Syringe) 90 mg SC BID [facility] Last Admin: 03/17/20 22:57 Dose: 90 mg Documented by: Remdesivir (Investigational) (100 mg/ Sodium Chloride) 250 mls @ 125 mls/hr IV DAILY [facility]; Protocol Stop: 03/19/20 11:59 Last Infusion: 03/17/20 16:25 Dose: Infused Documented by: Nutritional Formula (Lactose Free) (Ensure Clear 120 Ml Liquid) 240 ml PO TIDCM [facility] Last Admin: 03/18/20 10:16 Dose: Not Given Documented by: Ondansetron HCl (Ondansetron 4 Mg/2 Ml Vial) 4 mg IV Q8H PRN PRN PRN Reason: NAUSEA/VOMITING Senna/Docusate Sodium (Senna/Docusate Sodium 1 Tablet) 2 tablet PO BID [facility] Sodium Chloride (0.9% Saline Lock 10 Ml Syringe) 10 - 40 ml IV UD PRN PRN Reason: SALINE FLUSH Last Admin: 03/17/20 04:14 Dose: 40 ml Documented by: Medical Necessity - Tobacco Use Smoking Status: Never smoker Tobacco Use: Non-smoker Route of nutrition/ use of supplements: [] Nutritional Intake: [] IV Site: [] Carrillo Catheter: [] - Assessment/Plan Antibiotics: [] Assessment/Plan: [] Active and Suspected Problems Acute respiratory failure with hypoxia (Acute) Pneumonia due to COVID-19 virus (Acute) Hyperglycemia (Acute) Abnormal LFTs (liver function tests) (Acute) Sat of 78% on arrival. Sx started a week prior to admit 03/14. recovering but was never tested. On dex, on therapeutic lovenox, remdesivir, received plasma 03/15. CT showed no PE. Worsening O2, work of breathing, and mental status. ALT improved slightly today. Will follow
[2020-03-18 11:20] LABS: Allen Test Positive; Base Excess 0 mmol/L (-2 to +2); Bicarbonate 25.6 mmol/L (22-26); Blood Gas Specimen Type ART; FI02 100; Mode AC; O2 Delivery Device ET Tube; PEEP 16; PO2 42 mmHG (75-100); RR 14; SITE R Radial; SO2 75 % (95-99); Total Carbon Dioxide 27 mmol/L; Vt 450; pCO2 45.7 mmHg (35-45); pH 7.36 (7.35-7.45)
[2020-03-18] MEDS: dexAMETHasone 10 MG/ML Vial 6 MG IV (11:26)
--- NOTE | 2020-03-18 11:26 | PN_ITS ---
Patient Problems: Active and Suspected Problems Acute respiratory failure with hypoxia (Acute) Pneumonia due to COVID-19 virus (Acute) Hyperglycemia (Acute) Abnormal LFTs (liver function tests) (Acute) Subjective: Despite him feeling fine, he is appears lethargic and his respiratory rate has increased. He was satting 90% on BiPAP at an FiO2 of 70% therefore he was intubated this morning by ICU staff Vitals/I&O's: Vital Signs Temp Pulse Resp BP Pulse Ox 98.7 F 107 H 31 H 168/75 H 90 03/18/20 08:00 03/18/20 10:00 03/18/20 10:00 03/18/20 10:00 03/18/20 10:00 Oxygen Flow Rate (L/min) 65 Oxygen Delivery Method Bi-pap Weight: 202 lb 6.15 oz Body Mass Index (BMI) 28.4 Finger Stick Blood Glucose 119 Intake and Output for Last 24 Hours 03/16/20 03/17/20 03/18/20 23:59 23:59 23:59 Intake Total 2815.01 / 2815.01 3115.00 / 3115.00 0 / 0 Output Total 1899 / 2074 1999 / 1999 300 / 300 Balance 915.01 / 740.01 1115.00 / 1115.00 -300 / -300 General: Oriented x3, Cooperative, No apparent distress, lethargic HEENT: Atraumatic, PERRLA, EOMI, Normocephalic Oral: Dry mucosa Neck: Supple, No JVD Lungs: Normal air movement, No rhonchi, No wheeze, No rales, Diminished, tachypneic Cardiovascular: Regular rate and rhythm, Normal S1, Normal S2, No murmurs Abdomen: Soft, Non Tender, Non-Distended, No Hepato-splenomegaly Extremities: No edema, Capillary Refill Less than 3 Seconds Skin: No rashes, No breakdown, Incision - Right upper back no erythema surrounding incision. Packing removed monitored by wound care nurse Neurological: Neuro grossly intact, Sensory exam intact to light touch and pain Psych/Mental Status: Flat affect, Appropriate Microbiology Past 72 Hours 03/15/20 14:10 Wound - Back Gram Stain - Final 03/15/20 14:10 Wound - Back Wound Culture - Final Corynebacterium minutissimum 03/14/20 07:05 Blood Culture (Wb) - Anticubital Left Blood Culture - Prelimi nary No growth in 48 hours. 03/14/20 06:55 Blood Culture (Wb) - Right Hand Blood Culture - Preliminary No growth in 48 hours. 03/14/20 07:55 Urine, Clean Catch Urine Culture - Final Alpha Hemolytic Streptococcus Laboratory Results 03/17/20 11:13: POC Glucose 110 03/18/20 04:20: WBC 15.0 H, RBC 4.30 L, Hgb 13.1, Hct 40.0, MCV 93.0, MCH 30.5, MCHC 32.8, RDW Std Deviation 50.4 H, RDW Coeff of Maxim 14.8 H, Plt Count 316, MPV 9.4 03/18/20 04:20: Sodium 141, Potassium 3.9, Chloride 107, Carbon Dioxide 28.0, Anion Gap 6, BUN 22 H, Creatinine 0.97, Estim Creat Clear Calc 78.71, Est GFR (MDRD) Af Amer 99, Est GFR (MDRD) Non-Af 82, BUN/Creatinine Ratio 22.6 H, Glucose 133 H, Calcium 8.3 L, Total Bilirubin 1.00, AST 93 H, ALT 172 H, Alkaline Phosphatase 109, Total Protein 6.7, Albumin 2.0 L, Globulin 4.7 H, Albumin/Globulin Ratio 0.4 L 03/18/20 11:11: Specimen Type ART, Sample Site R Radial, pH 7.36, Bicarbonate Actual 25.6, Total CO2 27, Base Excess 0, O2 Saturation 75 L, O2 % 100, ABG pCO2 45.7 H, ABG pO2 42 L, Augusto Test Positive, Respiration Rate 14, O2 Delivery Device ET Tube, Vent Mode AC, Tidal Volume 450, POC PEEP 16 Current Medications Acetaminophen (Acetaminophen 650 Mg Suppository) 650 mg RECTAL Q4H PRN PRN PRN Reason: TEMP > 100.5 F Last Admin: 03/17/20 14:44 Dose: 650 mg Documented by: Dexamethasone Sodium Phosphate (Dexamethasone 10 Mg/Ml Vial) 6 mg IV DAILY [facility]S [facility]CLUDE 234 BEDS AT THE [facility] Stop: 03/23/20 10:01 Last Admin: 03/17/20 12:34 Dose: 6 mg Documented by: Enoxaparin Sodium (Enoxaparin 100 Mg/Ml Syringe) 90 mg SC BID [facility]S [facility] 234 BEDS AT THE [facility] Last Admin: 03/17/20 22:57 Dose: 90 mg Documented by: Etomidate (Etomidate 20 Mg/10 Ml Vial) 20 mg IV X1 ONE Stop: 03/18/20 11:21 Famotidine (Famotidine 20 Mg Tablet) 20 mg PO BID COUNTS INCLUDE 234 BEDS AT THE [facility] Remdesivir (Investigational) (100 mg/ Sodium Chloride) 250 mls @ 125 mls/hr IV DAILY [facility]; Protocol Stop: 03/19/20 11:59 Last Infusion: 03/17/20 16:25 Dose: Infused Documented by: Propofol (Diprivan) 1,000 mg in 100 mls @ 5.508 mls/hr CONT INF .Q12H [facility]; Protocol Fentanyl Citrate 1,000 mcg/ (Sodium Chloride) 100 mls @ 5 mls/hr CONT INF .Q20H [facility]; Protocol Lorazepam (Lorazepam 2 Mg/Ml Syringe) 2 mg IV X1 [facility] Stop: 03/18/20 11:22 Nutritional Formula (Lactose Free) (Ensure Clear 120 Ml Liquid) 240 ml PO TIDCM COUNTS INCLUDE 234 BEDS AT THE [facility] Last Admin: 03/18/20 10:16 Dose: Not Given Documented by: Ondansetron HCl (Ondansetron 4 Mg/2 Ml Vial) 4 mg IV Q8H PRN PRN PRN Reason: NAUSEA/VOMITING Senna/Docusate Sodium (Senna/Docusate Sodium 1 Tablet) 2 tablet PO BID COUNTS [facility]CLUDE 234 BEDS AT THE [facility] Sodium Chloride (0.9% Saline Lock 10 Ml Syringe) 10 - 40 ml IV UD PRN PRN Reason: SALINE FLUSH Last Admin: 03/17/20 04:14 Dose: 40 ml Documented by: STROKE Vital Signs/Narrative: Vital Signs Temp Pulse Resp BP Pulse Ox 03/18/20 10:00 107 H 31 H 168/75 H 90 03/18/20 09:00 88 44 H 135/71 H 96 03/18/20 08:00 98.7 F 85 42 H 130/62 H 96 Medical Necessity - Tobacco Use Smoking Status: Never smoker Tobacco Use: Non-smoker Assessment/Plan All Active Problems Acute respiratory failure with hypoxia (Acute) Pneumonia due to COVID-19 virus (Acute) Hyperglycemia (Acute) Acute pancreatitis (Acute) Abnormal LFTs (liver function tests) (Acute) 1. Severe sepsis secondary to acute Covid pneumonia with acute hypoxic respiratory failure/elevated troponin secondary to demand ischemia -Per report his oxygen saturations were in the 70s while on a nonrebreather prior to being initiated on BiPAP therapy which has stabilized his oxygen saturations -He received convalescent plasma on admission, as well as remdesivir, continue with Decadron -Urine strep and Legionella antigens are pending -D-dimer is a little bit elevated however CTA was negative for a PE -His troponin started climbing down, therefore likely demand ischemia from his hypoxia. -He was intubated after my exam 2. Right upper back abscess -He had a large boil on his back which was lanced by his physician 1 to 2 weeks ago -Packing removed, continue to monitor -We will consult wound care for evaluation and management DVT: Therapeutic Lovenox Inpatient E&M: 82329 Subs Hosp L2
[2020-03-18] MEDS: Enoxaparin 100 MG/ML Syringe 90 MG SC ×2 (11:30→20:53)
--- NOTE | 2020-03-18 12:00 | PN_ITS ---
Subjective: Patient did okay overnight. Patient continues to be very tachypneic through the morning. When I discussed with the morning rounds, patient states that he felt like he was doing well, however on reevaluation at approximately 920, patient reported that he was becoming tired of breathing. Patient denied any chest pain, nausea or vomiting. Discussed with patient's and the patient about intubation. Patient states that he is willing to be intubated, but would not accept a tracheostomy under any circumstances. Objective: At 10 AM, patient was reassessed and was found to be almost paradoxical breathing. Decision was made to intubate the patient. The patient was initiated on propofol and fentanyl drips. BiPAP was discontinued and the patient was given 20 mg of etomidate just prior to intubation. Patient was immediately intubated using a glide scope with an 8-0 endotracheal tube without difficulty. The tube was visualized going through the vocal cords, bilateral breath sounds and condensation were noted. CO2 exchange was positive. However, immediately after intubation, saturations decreased to 50 to 60%. Patient was placed on 100% FiO2 and PEEP with gradually increased to 16. Patient also had 2 mg of Ativan, propofol boluses and increase in drips initiated to help with vent synchrony. Saturations slowly normalized. Chest x-ray showed appropriate position of supportive devices, but a significant increase in bilateral infiltrates. No pneumothorax was appreciated. General: Alert, Cooperative, - - Moderate to severe respiratory distress on repeat evaluation. Patient with close to paradoxical respiration pattern HEENT: Atraumatic, PERRLA, EOMI, - - Scleral injection without icterus Oral: Dry Mucosa, - - Edentulous Neck: Supple, No JVD, No Nodes, Trachea Midline Lungs: No rhonchi, Diminished, Rales, Wheezes, - - Symmetric expansion Cardiovascular: Normal S1, Normal S2, No murmurs, No rub noted, No Gallop, Tachycardic Abdomen: Bowel Sounds Present, Soft, Non Tender, Non-Distended Extremities: No clubbing, No cyanosis, No edema, Capillary Refill Less than 3 Seconds Skin: - - No change from previous Musculoskeletal: No Tenderness to Palpation of Joints or Extremities Lymphatic: No Cervical, Supraclavicular, or Inguinal Adenopathy Neurological: Cranial nerves II-XII grossly intact, Neuro grossly intact Psych/Mental Status: Anxious, Impulsive, Restless Vital Signs Temp Pulse Resp BP Pulse Ox 37.1 C 107 H 31 H 168/75 H 90 03/18/20 08:00 03/18/20 10:00 03/18/20 10:00 03/18/20 10:00 03/18/20 10:00 Oxygen Flow Rate (L/min) 65 Oxygen Delivery Method Bi-pap Weight: 91.8 kg Body Mass Index (BMI) 28.4 Finger Stick Blood Glucose 119 Intake and Output for Last 24 Hours 03/16/20 03/17/20 03/18/20 23:59 23:59 23:59 Intake Total 2815.01 / 2815.01 3115.00 / 3115.00 0 / 0 Output Total 190 / 2074 520 / 520 Balance 915.01 / 740.01 1115.00 / 1115.00 -520 / -520 Labs (Last 48 Hours) 03/17/20 03/17/20 03/17/20 04:20 04:20 11:13 WBC 10.1 RBC 3.67 L Hgb 11.3 L Hct 34.9 L MCV 95.1 H MCH 30.8 MCHC 32.4 RDW Std Deviation 50.7 H RDW Coeff of Maxim 14.6 Plt Count 304 MPV 9.0 Specimen Type Sample Site pH Bicarbonate Actual Total CO2 Base Excess O2 Saturation O2 % ABG pCO2 ABG pO2 Augusto Test Respiration Rate O2 Delivery Device Vent Mode Tidal Volume POC PEEP Sodium 145 Potassium 3.2 L Chloride 115 H Carbon Dioxide 24.0 Anion Gap 6 BUN 24 H Creatinine 0.67 L Estim Creat Clear Calc 76.35 Est GFR (MDRD) Af Amer 151 Est GFR (MDRD) Non-Af 125 BUN/Creatinine Ratio 35.6 H Glucose 114 H Calcium 6.9 L Total Bilirubin 0.40 AST 139 H ALT 189 H Alkaline Phosphatase 93 Total Protein 5.5 L Albumin 1.7 L Globulin 3.8 Albumin/Globulin Ratio 0.4 L POC Glucose 110 03/18/20 03/18/20 03/18/20 04:20 04:20 11:11 WBC 15.0 H RBC 4.30 L Hgb 13.1 Hct 40.0 MCV 93.0 MCH 30.5 MCHC 32.8 RDW Std Deviation 50.4 H RDW Coeff of Maxim 14.8 H Plt Count 316 MPV 9.4 Specimen Type ART Sample Site R Radial pH 7.36 Bicarbonate Actual 25.6 Total CO2 27 Base Excess 0 O2 Saturation 75 L O2 % 100 ABG pCO2 45.7 H ABG pO2 42 L Augusto Test Positive Respiration Rate 14 O2 Delivery Device ET Tube Vent Mode AC Tidal Volume 450 POC PEEP 16 Sodium 141 Potassium 3.9 Chloride 107 Carbon Dioxide 28.0 Anion Gap 6 BUN 22 H Creatinine 0.97 Estim Creat Clear Calc 78.71 Est GFR (MDRD) Af Amer 99 Est GFR (MDRD) Non-Af 82 BUN/Creatinine Ratio 22.6 H Glucose 133 H Calcium 8.3 L Total Bilirubin 1.00 AST 93 H ALT 172 H Alkaline Phosphatase 109 Total Protein 6.7 Albumin 2.0 L Globulin 4.7 H Albumin/Globulin Ratio 0.4 L POC Glucose Microbiology 03/15/20 14:10 Wound - Back Gram Stain - Final 03/15/20 14:10 Wound - Back Wound Culture - Final Corynebacterium minutissimum 03/14/20 07:05 Blood Culture (Wb) - Anticubital Left Blood Culture - Preliminary No growth in 48 hours. 03/14/20 06:55 Blood Culture (Wb) - Right Hand Blood Culture - Preliminary No growth in 48 hours. 03/14/20 07:55 Urine, Clean Catch Urine Culture - Final Alpha Hemolytic Streptococcus Clinical Impression(s) from Imaging Studies Chest X-Ray 03/18/20 11:05 IMPRESSION: The tip of the endotracheal tube is at 4.6 cm proximal to the river. Since prior study, there has been progressive patchy airspace disease involving both lungs worse in the left lower lobe. Electronically Signed: David Patel, at 11:28 EDT , Service support , Medical Necessity - Tobacco Use Smoking Status: Never smoker Tobacco Use: Non-smoker Assessment/Plan All Active Problems Acute respiratory failure with hypoxia (Acute) Pneumonia due to COVID-19 virus (Acute) Hyperglycemia (Acute) Acute pancreatitis (Acute) Abnormal LFTs (liver function tests) (Acute) RECOMMENDATIONS: 1. Continue therapeutic anticoagulation, systemic steroids, remdesivir 2. Spontaneous breathing and awakening trials per protocol. Wean FiO2 as tolerated, then PEEP 3. Attempt volume restriction if possible. Possible diuretic therapy in the next 24 to 48 hours 4. Monitor liver function closely given remdesivir 5. Await species and sensitivities of drainage. 6. Confirmed CODE STATUS DNR Comfort Care arrest with intubation IMPRESSIONS: 1. Acute hypoxic respiratory failure secondary to COVID-19 pneumonia Patient with progressive decline that ultimately required intubation on 03/18/2020 secondary to respiratory muscle fatigue. Patient currently is on appropriate sedation for vent synchrony. Spontaneous breathing and awakening trials per protocol. Okay to continue with COVID-19 protocol per infectious d isease. There is no indication for discontinuation from a liver function standpoint. Patient has had significant increase in bilateral infiltrates despite weight remaining relatively stable. Allow patient to stabilize for 24 hours, but then may attempt diuretic therapy. 2. Severe sepsis secondary to COVID-19 and possible UTI Patient with severe sepsis on presentation. Patient appears to be improving with control of hypoxia. Urine was suggestive of an UTI, but culture appears to be normal. Patient is not currently on systemic antibiotics. Patient does have Corynebacterium growing from back wound, but this is readily draining, so likely does not require antibiotics. Infectious disease has been consulted. Patient does have a history of a recent back abscess, but this does not appear to be acutely inflamed. 3. Elevated troponin secondary to supply demand mismatch Patient with some elevated troponins, but given the lack of ST changes and profound hypoxia on presentation, supply demand mismatch is suspected. Patient will be placed on systemic anticoagulation for problem #1. Patient may benefit from a stress test as an outpatient, but would defer to PCP. Okay to hold off on cardiology consult from my perspective. 4. Acute kidney injury Resolved. Previous baseline creatinine was approximately 0.7. Patient is making good urine at this time. No indication for renal replacement therapy. Continue to monitor electrolytes and replete as necessary. TIME: 81 minutes critical care time spent addressing patient's acute hypoxic respiratory failure, severe sepsis, elevated troponin, acute kidney injury, review of all data and collaboration with care team (10 AM to 11:30 AM) Procedures: [id number] Critial Care Addl 30 Min 9xxxx: [id number] Critical care first hour
--- NOTE | 2020-03-18 12:28 | NT.THERAPY_ITS ---
Nutrition Therapy Report - History Nutrition Services has been consulted to:: Manage enteral nutrition Current diet / nutrition support order:: regular; 240mL Ensure Clear TID - Anthropometric Measurements Height:: 5 ft 11 in Weight:: 91.8 kg Body Mass Index (BMI):: 28.2 - Relevant Labs Relevant Labs:: WBC 15.0 K/mm3 (4.4-11.0) H 03/18/20 04:20 RBC 4.30 M/mm3 (4.6-6.2) L 03/18/20 04:20 Hgb 11.3 g/dL (13.0-16.5) L 03/17/20 04:20 Hct 34.9 % (40-54) L 03/17/20 04:20 MCV 95.1 fL (80-94) H 03/17/20 04:20 RDW Std Deviation 50.4 fl (35.1-43.9) H 03/18/20 04:20 RDW Coeff of Maxim 14.8 % (11.6-14.6) H 03/18/20 04:20 Immature Gran % (Auto) 1.200 % (0.0-0.9) H 03/14/20 06:55 Neut % (Auto) 87.5 % (47-70) H 03/15/20 03:30 Lymph % (Auto) 8.5 % (19-41) L 03/15/20 03:30 Absolute Neuts (auto) 8.2 X10^3/uL (2.0-7.7) H 03/15/20 03:30 Absolute Lymphs (auto) 0.80 X10^3/uL (0.83-4.51) L 03/15/20 03:30 Fibrinogen > 900 mg/dl (203-444) H 03/14/20 07:55 D-Dimer Quant (PE/DVT) 1.48 FEU/ug/m (0.27-0.49) H* 03/14/20 07:55 Potassium 3.2 mmol/L (3.5-5.1) L 03/17/20 04:20 Chloride 115 mmol/L (98-107) H 03/17/20 04:20 BUN 22 mg/dL (7-18) H 03/18/20 04:20 Creatinine 0.67 mg/dL (0.70-1.30) L 03/17/20 04:20 Est GFR (MDRD) Non-Af 59 mL/min (>60) L 03/15/20 03:30 BUN/Creatinine Ratio 22.6 RATIO (10-20) H 03/18/20 04:20 Glucose 133 mg/dL (74-106) H 03/18/20 04:20 Lactic Acid 2.4 mmol/L (0.4-1.9) H* 03/14/20 11:35 Calcium 8.3 mg/dL (8.5-10.1) L 03/18/20 04:20 AST 93 U/L (15-37) H 03/18/20 04:20 ALT 172 U/L (16-61) H 03/18/20 04:20 Alkaline Phosphatase 119 U/L (45-117) H 03/16/20 04:40 Lactate Dehydrogenase 333 U/L (87-241) H 03/14/20 07:55 Troponin I 0.168 ng/mL (<0.045) H 03/16/20 10:30 C-React Prot Ext Range 385.00 mg/L (0.0-3.0) H 03/14/20 07:55 B-Natriuretic Peptide 199.8 pg/mL (0-100) H 03/14/20 06:55 Total Protein 5.5 g/dL (6.4-8.2) L 03/17/20 04:20 Albumin 2.0 g/dL (3.2-5.0) L 03/18/20 04:20 Globulin 4.7 g/dL (2.2-4.2) H 03/18/20 04:20 Albumin/Globulin Ratio 0.4 RATIO (0.9-2.4) L 03/18/20 04:20 Procalcitonin 0.59 ng/mL (0.00-0.09) H 03/14/20 07:55 - Assessment Food / Nutrition-Related History:: Discussed in ICU rounds. Pt struggling w/ bipap. Plans to intubate this AM. Has had poor PO intake d/t resp. failure. Wt decrease of 1.0 kg noted since last review. OK for nutrition support once intubated. See below. - Nutrition Diagnosis Problem / Etiology / Signs & Symptoms (PES):: Inadequate oral intake r/t resp. failure as evidenced by estimated PO intake meeting < 50% of pt's estimated need for 5 days. Evidence of Malnutrition Exists:: No - Nutrition Intervention Nutrition Prescription:: Estimated nutritional needs: 5956-3056 calories, 110- 130 g protein/day. - Food / Nutrient Delivery Interventions Summary of nutrition intervention:: Will order EN and d/c PO diet and Ensure Clear on JUL. Nutrition support ordered as / adjusted to:: Vital AF 1.2 at goal rate of 70mL/hour w/ 125mL H2O flush every 4 hours to provide 2016 calories, 126 g protein, and 2112mL total fluid per day. Tube feeds to be administered via gravity bag. Total formula per 24 hours: 1680mL. Recommend start at 140mL for first 4 hours (approx 12 drops/min, 3 drops per 15 seconds); increase to 200mL for next 4 hours (approx 17 drops/min, 4 drops per 15 seconds); goal rate is 280mL per 4 hours (approx 23 drops/min, 6 drops per 15 seconds). Will d/C Ensure Clear and make NPO while intubated. - MNT Monitoring Further MNT monitoring and evaluation required?: Yes MNT Follow-up in:: 1-2 days
--- NOTE | 2020-03-18 13:11 | CPS ---
Did not rerun sample, likely venous blood.
[2020-03-18 14:55] LABS: CPK Total, Creatine Kinase 73 U/L (39-308); Triglycerides 124 mg/dL
[2020-03-18 14:56] LABS: Base Excess 3 mmol/L (-2 to +2); Bicarbonate 27.8 mmol/L (22-26); Blood Gas Specimen Type ART; FI02 90; Mode AC; O2 Delivery Device ET Tube; PEEP 16; PO2 81 mmHG (75-100); RR 14; SITE L Brach; SO2 96 % (95-99); Total Carbon Dioxide 29 mmol/L; Vt 450; pCO2 46.1 mmHg (35-45); pH 7.39 (7.35-7.45)
[2020-03-18] MEDS: Propofol 10MG/Ml 1,000 MG/100 ML Bottle 19.3 MG CONT INF (15:00)
[2020-03-18] MEDS: Vital AF 1.2 Cal Liquid 1,000 ML 70 ML GT (18:27)
[2020-03-18] MEDS: Propofol 10MG/Ml 1,000 MG/100 ML Bottle 16.5 MG CONT INF (20:15)
[2020-03-18] MEDS: Chlorhexidine 15 ML PO (20:53)
[2020-03-18] MEDS: Senna/Docusate Sodium 1 Tablet 2 TABLET PO (20:54)
[2020-03-18] MEDS: Famotidine 20 MG Tablet PO (20:54)
[2020-03-19] VITALS (33 sets, daily range): BP systolic 97–132; BP diastolic 57–77; PULSE 68–115; RESP 11–22; TEMP 36.3–37.9; O2SAT 84–98
[2020-03-19] MEDS: Propofol 10MG/Ml 1,000 MG/100 ML Bottle 11 MG CONT INF ×2 (00:35→18:45)
[2020-03-19 04:55] LABS: Hematocrit 36.7 % (40-54); Hemoglobin 11.6 g/dL (13.0-16.5); Mean Corp Hgb Conc 31.6 g/dL (32-36); Mean Corpuscular Hgb 30.7 pg (27.0-32.0); Mean Corpuscular Volume 97.1 fL (80-94); Mean Platelet Vol. 9.8 fl (6.2-12.0); Platelet Count 243 K/mm3 (150-450); RBC Distribution Width CV 15.4 % (11.6-14.6); RBC Distribution Width SD 55.1 fl (35.1-43.9); Red Blood Count 3.78 M/mm3 (4.6-6.2); White Blood Count 14.9 K/mm3 (4.4-11.0)
[2020-03-19 05:20] LABS: ALB/GLOB Ratio 0.4 RATIO (0.9-2.4); AST(SGOT) 51 U/L (15-37); Alanine Aminotransfer ALT/SGPT 108 U/L (16-61); Albumin, Serum 1.6 g/dL (3.2-5.0); Alkaline Phosphatase 96 U/L (45-117); Anion Gap 4 (5-15); BUN 42 mg/dL (7-18); BUN/Creat Ratio 39.6 RATIO (10-20); Calcium,Total 7.7 mg/dL (8.5-10.1); Chloride 110 mmol/L (98-107); Creatinine, Serum 1.06 mg/dL (0.70-1.30); EST Glomerular Filtration Rate 74 mL/min (>60); Est Glom Filt Rate - Afr Amer 89 mL/min (>60); Estimated Creatinine Clearance 72.02 ml/min; Globulin 4.4 g/dL (2.2-4.2); Glucose 192 mg/dL (74-106); Potassium 4.3 mmol/L (3.5-5.1); Sodium Level 143 mmol/L (136-145)
--- NOTE | 2020-03-19 05:25 | RAD_ITS ---
STUDY: X-RAY CHEST REASON FOR EXAM: Male, 69 years old. COUGH, SOB, POSITIVE COVID TEST AND HYPOXIA. TECHNIQUE: Single AP portable view of the chest. COMPARISON: Comparison is made with prior study dated 03/18/2020. FINDINGS: An endotracheal tube is in situ. The tip is at 4 cm proximal to the river. A nasogastric tube is seen with the tip in the body of the stomach. A left-sided PICC line catheter is seen with the tip at the junction of the superior vena cava and right atrium. Since prior study, there is been mild improvement in the diffuse bilateral airspace disease. There is no demonstrated pleural abnormality. Normal size heart. Normal mediastinum and [place]. Normal visualized pulmonary arteries. Normal visualized aortic arch and descending thoracic aorta. Normal visualized thoracic spine. Normal visualized ribs, clavicles, and shoulders. There is no demonstrated abnormality of the visualized soft tissue structures of the upper abdomen. RAD/Chest 1 View (Portable) IMPRESSION: All the support tubes are unchanged. Since prior study, there has been mild degree of improved aeration of the diffuse bilateral airspace disease. Electronically Signed: David Patel, at 8:30 EDT , Service support ,
[2020-03-19] MEDS: Vital AF 1.2 Cal Liquid 1,000 ML 70 ML GT ×2 (05:48→08:30)
[2020-03-19] MEDS: Propofol 10MG/Ml 1,000 MG/100 ML Bottle 16.5 MG CONT INF (05:55)
[2020-03-19] MEDS: TITRATION PARAMETER CHANGE 1 EACH IV (06:15)
[2020-03-19] MEDS: Senna/Docusate Sodium 1 Tablet 2 TABLET PO ×2 (08:52→22:31)
[2020-03-19] MEDS: Famotidine 20 MG Tablet PO ×2 (08:52→22:31)
[2020-03-19] MEDS: dexAMETHasone 10 MG/ML Vial 6 MG IV (08:53)
[2020-03-19] MEDS: Chlorhexidine 15 ML PO ×2 (08:53→22:32)
--- NOTE | 2020-03-19 10:43 | PCM.PN.HOSP ---
Patient Problems: Active and Suspected Problems Acute respiratory failure with hypoxia (Acute) Pneumonia due to COVID-19 virus (Acute) Hyperglycemia (Acute) Abnormal LFTs (liver function tests) (Acute) Subjective: Debated and sedated, PEEP had to be increased to 18 with an FiO2 of 100% was little bit agitated overnight Vitals/I&O's: Vital Signs Temp Pulse Resp BP Pulse Ox 97.3 F L 115 H 19 H 132/73 H 91 03/19/20 04:00 03/19/20 07:05 03/19/20 07:05 03/19/20 07:00 03/19/20 07:05 Oxygen Flow Rate (L/min) 65 Oxygen Delivery Method Mechanical Ventilator Weight: 201 lb 15.095 oz Body Mass Index (BMI) 28.2 Finger Stick Blood Glucose 119 Intake and Output for Last 24 Hours 03/17/20 03/18/20 03/19/20 23:59 23:59 23:59 Intake Total 3115.00 / 3115.00 621.84 / 648.14 279.02 / 279.02 Output Total 1999 1245 / 1320 860 / 860 Balance 1115.00 / 1115.00 -623.16 / -671.86 -580.98 / -580.98 General: - - Intubated and sedated HEENT: Atraumatic, PERRLA, Normocephalic Oral: Dry Mucosa Neck: Supple, No JVD Lungs: No rhonchi, No wheeze, No rales, Diminished Cardiovascular: Regular Rhythm, Normal S1, Normal S2, No murmurs, Tachycardic Abdomen: Soft, Non Tender, Non-Distended, No Hepato-splenomegaly Extremities: No edema, Capillary Refill Less than 3 Seconds Skin: No rashes, No breakdown Neurological: - - Intubated and sedated Psych/Mental Status: - - Intubated and sedated Microbiology Past 72 Hours 03/14/20 07:05 Blood Culture (Wb) - Anticubital Left Blood Culture - Final No growth in 5 days. 03/14/20 06:55 Blood Culture (Wb) - Right Hand Blood Culture - Final No growth in 5 days. 03/15/20 14:10 Wound - Back Gram Stain - Final 03/15/20 14:10 Wound - Back Wound Culture - Final Corynebacterium minutissimum 03/14/20 07:55 Urine, Clean Catch Urine Culture - Final Alpha Hemolytic Streptococcus Laboratory Results 03/18/20 09:20: Total Creatine Kinase 73, Triglycerides 124 03/18/20 11:11: Specimen Type ART, Sample Site R Radial, pH 7.36, Bicarbonate Actual 25.6, Total CO2 27, Base Excess 0, O2 Saturation 75 L, O2 % 100, ABG pCO2 45.7 H, ABG pO2 42 L, Augusto Test Positive, Respiration Rate 14, O2 Delivery Device ET Tube, Vent Mode AC, Tidal Volume 450, POC PEEP 16 03/18/20 14:49: Specimen Type ART, Sample Site L Brach, pH 7.39, Bicarbonate Actual 27.8 H, Total CO2 29, Base Excess 3 H, O2 Saturation 96, O2 % 90, ABG pCO2 46.1 H, ABG pO2 81, Respiration Rate 14, O2 Delivery Device ET Tube, Vent Mode AC, Tidal Volume 450, POC PEEP 16 03/19/20 04:40: WBC 14.9 H, RBC 3.78 L, Hgb 11.6 L, Hct 36.7 L, MCV 97.1 H, MCH 30.7, MCHC 31.6 L, RDW Std Deviation 55.1 H, RDW Coeff of Maxim 15.4 H, Plt Count 243, MPV 9.8 03/19/20 04:40: Sodium 143, Potassium 4.3, Chloride 110 H, Carbon Dioxide 29.0, Anion Gap 4 L, BUN 42 H, Creatinine 1.06, Estim Creat Clear Calc 72.02, Est GFR (MDRD) Af Amer 89, Est GFR (MDRD) Non-Af 74, BUN/Creatinine Ratio 39.6 H, Glucose 192 H, Calcium 7.7 L, Total Bilirubin 0.60, AST 51 H, ALT 108 H, Alkaline Phosphatase 96, Total Protein 6.0 L, Albumin 1.6 L, Globulin 4.4 H, Albumin/Globulin Ratio 0.4 L Current Medications Acetaminophen (Acetaminophen 650 Mg Suppository) 650 mg RECTAL Q4H PRN PRN PRN Reason: TEMP > 100.5 F Last Admin: 03/17/20 14:44 Dose: 650 mg Documented by: Chlorhexidine Gluconate (Chlorhexidine 15 Ml) 15 ml PO BID TELMA Last Admin: 03/19/20 08:53 Dose: 15 ml Documented by: Dexamethasone Sodium Phosphate (Dexamethasone 10 Mg/Ml Vial) 6 mg IV DAILY [facility] Stop: 03/23/20 10:01 Last Admin: 03/19/20 08:53 Dose: 6 mg Documented by: Famotidine (Famotidine 20 Mg Tablet) 20 mg PO BID [facility] Last Admin: 03/19/20 08:52 Dose: 20 mg Documented by: Remdesivir (Investigational) (100 mg/ Sodium Chloride) 250 mls @ 125 mls/hr IV DAILY [facility]; Protocol Stop: 03/19/20 11:59 Last Infusion: 03/18/20 15:00 Dose: Infused Documented by: Propofol (Diprivan) 1,000 mg in 100 mls @ 5.496 mls/hr CONT INF .Q12H [facility]; Protocol Last Titration: 03/19/20 08:45 Dose: 25 mcg/kg/min, 13.7 mls/hr Documented by: Fentanyl Citrate 1,000 mcg/ (Sodium Chloride) 100 mls @ 5 mls/hr CONT INF .Q20H [facility]; Protocol Last Titration: 03/19/20 08:00 Dose: 150 mcg/hr, 15 mls/hr Documented by: Enteral Nutritional Formula (Vital Af 1.2 Rajendra Liquid) 1,000 mls @ 70 mls/hr GT .[id number] [facility] Last Admin: 03/19/20 05:48 Dose: 70 mls/hr Documented by: Ondansetron HCl (Ondansetron 4 Mg/2 Ml Vial) 4 mg IV Q8H PRN PRN PRN Reason: NAUSEA/VOMITING Senna/Docusate Sodium (Senna/Docusate Sodium 1 Tablet) 2 tablet PO BID [facility] Last Admin: 03/19/20 08:52 Dose: 2 tablet Documented by: Sodium Chloride (0.9% Saline Lock 10 Ml Syringe) 10 - 40 ml IV UD PRN PRN Reason: SALINE FLUSH Last Admin: 03/17/20 04:14 Dose: 40 ml Documented by: STROKE Vital Signs/Narrative: Vital Signs Pulse Resp BP Pulse Ox 03/19/20 07:05 115 H 19 H 91 03/19/20 07:00 115 H 19 H 132/73 H 90 Medical Necessity - Tobacco Use Smoking Status: Never smoker Tobacco Use: Non-smoker Assessment/Plan All Active Problems Acute respiratory failure with hypoxia (Acute) Pneumonia due to COVID-19 virus (Acute) Hyperglycemia (Acute) Acute pancreatitis (Acute) Abnormal LFTs (liver function tests) (Acute) 1. Severe sepsis secondary to acute Covid pneumonia with acute hypoxic respiratory failure/elevated troponin secondary to demand ischemia -Per report his oxygen saturations were in the 70s while on a nonrebreather prior to being initiated on BiPAP therapy which has stabilized his oxygen saturations -He received convalescent plasma on admission, as well as remdesivir, continue with Decadron -Urine strep and Legionella antigens negative -D-dimer is a little bit elevated however CTA was negative for a PE, his therapeutic Lovenox was discontinued and she did have a little bit of hemoptysis after intubation yesterday. -His troponin started climbing down, therefore likely demand ischemia from his hypoxia. -He was intubated yesterday and had to have an increase in his PEEP this morning secondary to agitation 2. Right upper back abscess -He had a large boil on his back which was lanced by his physician 1 to 2 weeks ago -Packing removed, continue to monitor -We will consult wound care for evaluation and management DVT: SCDs Inpatient E&M: 26592 Subs Hosp L2
[2020-03-19] MEDS: Propofol 10MG/Ml 1,000 MG/100 ML Bottle 13.7 MG CONT INF (11:35)
--- NOTE | 2020-03-19 12:21 | PN_ITS ---
Subjective: Patient with worsening oxygenation overnight. Respiratory had reported an element of hemoptysis, so Lovenox was discontinued. Patient is tolerating tube feeds. Patient not very interactive this morning on my evaluation. Did discuss with patient's during rounds this and she agreed to proceed. General: - - Intubated and sedated. Wai appearance. Fair vent synchrony. HEENT: Atraumatic, PERRLA, EOMI, Normocephalic, - - No scleral icterus or injection noted Oral: Moist Mucosa, No Gingival or Mucosal Lesions/ Ulcerations, - - Edentulous Neck: Supple, No JVD, No Nodes, Trachea Midline Lungs: No wheeze, No rales, Diminished, Rhonchi, - - Symmetric expansion. Cardiovascular: Regular rate, Regular Rhythm, Normal S1, Normal S2, No murmurs, No rub noted, No Gallop Abdomen: Bowel Sounds Present, Soft, Non Tender, Non-Distended Extremities: No clubbing, No cyanosis, No edema, Capillary Refill Less than 3 Seconds Skin: - - No change from previous Musculoskeletal: No Tenderness to Palpation of Joints or Extremities Lymphatic: No Cervical, Supraclavicular, or Inguinal Adenopathy Neurological: Cranial nerves II-XII grossly intact, Neuro grossly intact - Positive gag and cough reflexes. Psych/Mental Status: Flat Affect Vital Signs Temp Pulse Resp BP Pulse Ox 36.3 C L 102 H 16 132/73 H 97 03/19/20 04:00 03/19/20 10:52 03/19/20 10:52 03/19/20 07:00 03/19/20 10:52 Oxygen Flow Rate (L/min) 65 Oxygen Delivery Method Mechanical Ventilator Weight: 91.6 kg Body Mass Index (BMI) 28.2 Finger Stick Blood Glucose 119 Intake and Output for Last 24 Hours 03/17/20 03/18/20 03/19/20 23:59 23:59 23:59 Intake Total 3115.00 / 3115.00 621.84 / 648.14 279.02 / 279.02 Output Total 1999 1245 / 1320 860 / 860 Balance 1115.00 / 1115.00 -623.16 / -671.86 -580.98 / -580.98 Labs (Last 48 Hours) 03/17/20 03/18/20 03/18/20 11:13 04:20 04:20 WBC 15.0 H RBC 4.30 L Hgb 13.1 Hct 40.0 MCV 93.0 MCH 30.5 MCHC 32.8 RDW Std Deviation 50.4 H RDW Coeff of Maxim 14.8 H Plt Count 316 MPV 9.4 Specimen Type Sample Site pH Bicarbonate Actual Total CO2 Base Excess O2 Saturation O2 % ABG pCO2 ABG pO2 Augusto Test Respiration Rate O2 Delivery Device Vent Mode Tidal Volume POC PEEP Sodium 141 Potassium 3.9 Chloride 107 Carbon Dioxide 28.0 Anion Gap 6 BUN 22 H Creatinine 0.97 Estim Creat Clear Calc 78.71 Est GFR (MDRD) Af Amer 99 Est GFR (MDRD) Non-Af 82 BUN/Creatinine Ratio 22.6 H Glucose 133 H Calcium 8.3 L Total Bilirubin 1.00 AST 93 H ALT 172 H Alkaline Phosphatase 109 Total Creatine Kinase Total Protein 6.7 Albumin 2.0 L Globulin 4.7 H Albumin/Globulin Ratio 0.4 L Triglycerides POC Glucose 110 03/18/20 03/18/20 03/18/20 09:20 11:11 14:49 WBC RBC Hgb Hct MCV MCH MCHC RDW Std Deviation RDW Coeff of Maxim Plt Count MPV Specimen Type ART ART Sample Site R Radial L Brach pH 7.36 7.39 Bicarbonate Actual 25.6 27.8 H Total CO2 27 29 Base Excess 0 3 H O2 Saturation 75 L 96 O2 % 100 90 ABG pCO2 45.7 H 46.1 H ABG pO2 42 L 81 Augusto Test Positive Respiration Rate 14 14 O2 Delivery Device ET Tube ET Tube Vent Mode AC AC Tidal Volume 450 450 POC PEEP 16 16 Sodium Potassium Chloride Carbon Dioxide Anion Gap BUN Creatinine Estim Creat Clear Calc Est GFR (MDRD) Af Amer Est GFR (MDRD) Non-Af BUN/Creatinine Ratio Glucose Calcium Total Bilirubin AST ALT Alkaline Phosphatase Total Creatine Kinase 73 Total Protein Albumin Globulin Albumin/Globulin Ratio Triglycerides 124 POC Glucose 03/19/20 03/19/20 04:40 04:40 WBC 14.9 H RBC 3.78 L Hgb 11.6 L Hct 36.7 L MCV 97.1 H MCH 30.7 MCHC 31.6 L RDW Std Deviation 55.1 H RDW Coeff of Maxim 15.4 H Plt Count 243 MPV 9.8 Specimen Type Sample Site pH Bicarbonate Actual Total CO2 Base Excess O2 Saturation O2 % ABG pCO2 ABG pO2 Augusto Test Respiration Rate O2 Delivery Device Vent Mode Tidal Volume POC PEEP Sodium 143 Potassium 4.3 Chloride 110 H Carbon Dioxide 29.0 Anion Gap 4 L BUN 42 H Creatinine 1.06 Estim Creat Clear Calc 72.02 Est GFR (MDRD) Af Amer 89 Est GFR (MDRD) Non-Af 74 BUN/Creatinine Ratio 39.6 H Glucose 192 H Calcium 7.7 L Total Bilirubin 0.60 AST 51 H ALT 108 H Alkaline Phosphatase 96 Total Creatine Kinase Total Protein 6.0 L Albumin 1.6 L Globulin 4.4 H Albumin/Globulin Ratio 0.4 L Triglycerides POC Glucose Microbiology 03/14/20 07:05 Blood Culture (Wb) - Anticubital Left Blood Culture - Final No growth in 5 days. 03/14/20 06:55 Blood Culture (Wb) - Right Hand Blood Culture - Final No growth in 5 days. Clinical Impression(s) from Imaging Studies Chest X-Ray 03/19/20 05:25 IMPRESSION: All the support tubes are unchanged. Since prior study, there has been mild degree of improved aeration of the diffuse bilateral airspace disease. Electronically Signed: David Patel, at 8:30 EDT , Service support , Medical Necessity - Tobacco Use Smoking Status: Never smoker Tobacco Use: Non-smoker Assessment/Plan All Active Problems Acute respiratory failure with hypoxia (Acute) Pneumonia due to COVID-19 virus (Acute) Hyperglycemia (Acute) Acute pancreatitis (Acute) Abnormal LFTs (liver function tests) (Acute) RECOMMENDATIONS: 1. Continue therapeutic anticoagulation, systemic steroids, remdesivir 2. Spontaneous breathing and awakening trials per protocol. Wean FiO2 as tolerated, then PEEP 3. Attempt volume restriction if possible. Possible diuretic therapy in the next 24 to 48 hours 4. Monitor liver function closely given remdesivir 5. Antibiotics per infectious disease if indicated 6. Confirmed CODE STATUS DNR Comfort Care arrest with intubation IMPRESSIONS: 1. Acute hypoxic respiratory failure secondary to COVID-19 pneumonia/ARDS Patient with progressive decline that ultimately required intubation on 03/18/2020 secondary to respiratory muscle fatigue. Patient currently is on appropriate sedation for vent synchrony. Spontaneous breathing and awakening trials per protocol. Okay to continue with COVID-19 protocol per infectious disease. There is no indication for discontinuation from a liver function standpoint. Patient has had significant increase in bilateral infiltrates despite weight remaining relatively stable. Patient developed hemoptysis overnight. Unclear if patient developed an element of diffuse alveolar hemorr keith. Patient is too hemodynamically unstable to tolerate bronchoscopy for evaluation. Will discontinue Lovenox and monitor. 2. Severe sepsis secondary to COVID-19 and possible UTI Patient with severe sepsis on presentation. Patient appears to be improving with control of hypoxia. Urine was suggestive of an UTI, but culture appears to be normal. Patient is not currently on systemic antibiotics. Patient does have Corynebacterium growing from back wound, but this is readily draining, so likely does not require antibiotics. Infectious disease has been consulted. 3. Elevated troponin secondary to supply demand mismatch Patient with some elevated troponins, but given the lack of ST changes and profound hypoxia on presentation, supply demand mismatch is suspected. Patient will be placed on systemic anticoagulation for problem #1. Patient may benefit from a stress test as an outpatient, but would defer to PCP. Okay to hold off on cardiology consult from my perspective. 4. Acute kidney injury Slightly worse. Previous baseline creatinine was approximately 0.7. Patient is making good urine at this time. No indication for renal replacement therapy. Continue to monitor electrolytes and replete as necessary. TIME: 36 minutes critical care time spent addressing patient's acute hypoxic respiratory failure, severe sepsis, elevated troponin, acute kidney injury, review of all data and collaboration with care team (9 AM to 10 AM) [phone] [id number] Critical care first hour
--- NOTE | 2020-03-19 15:26 | PN.ID_ITS ---
Patient Problems: Active and Suspected Problems Acute respiratory failure with hypoxia (Acute) Pneumonia due to COVID-19 virus (Acute) Hyperglycemia (Acute) Abnormal LFTs (liver function tests) (Acute) Subjective: Some hemoptysis. Remdesivir and lovenox stopped. No fever. - Physical Exam Vitals/I&O's: Vital Signs Temp Pulse Resp BP Pulse Ox 97.3 F L 81 20 H 132/73 H 95 03/19/20 04:00 03/19/20 14:30 03/19/20 14:30 03/19/20 07:00 03/19/20 14:30 Oxygen Flow Rate (L/min) 65 Oxygen Delivery Method Mechanical Ventilator Weight: 91.6 kg Body Mass Index (BMI) 28.2 Finger Stick Blood Glucose 119 Intake and Output for Last 24 Hours 03/17/20 03/18/20 03/19/20 23:59 23:59 23:59 Intake Total 3115.00 / 3115.00 621.84 / 648.14 364.67 / 364.67 Output Total 1999 1245 / 1320 860 / 860 Balance 1115.00 / 1115.00 -623.16 / -671.86 -495.33 / -495.33 General: Lethargic Lungs: Diminished Cardiovascular: Regular rate, Regular Rhythm Abdomen: Soft, Non Tender, Non-Distended Skin: No rashes Microbiology Past 72 Hours 03/14/20 07:05 Blood Culture (Wb) - Anticubital Left Blood Culture - Final No growth in 5 days. 03/14/20 06:55 Blood Culture (Wb) - Right Hand Blood Culture - Final No growth in 5 days. 03/15/20 14:10 Wound - Back Gram Stain - Final 03/15/20 14:10 Wound - Back Wound Culture - Final Corynebacterium minutissimum Laboratory Results 03/19/20 04:40: WBC 14.9 H, RBC 3.78 L, Hgb 11.6 L, Hct 36.7 L, MCV 97.1 H, MCH 30.7, MCHC 31.6 L, RDW Std Deviation 55.1 H, RDW Coeff of Maxim 15.4 H, Plt Count 243, MPV 9.8 03/19/20 04:40: Sodium 143, Potassium 4.3, Chloride 110 H, Carbon Dioxide 29.0, Anion Gap 4 L, BUN 42 H, Creatinine 1.06, Estim Creat Clear Calc 72.02, Est GFR (MDRD) Af Amer 89, Est GFR (MDRD) Non-Af 74, BUN/Creatinine Ratio 39.6 H, Glucose 192 H, Calcium 7.7 L, Total Bilirubin 0.60, AST 51 H, ALT 108 H, Alkaline Phosphatase 96, Total Protein 6.0 L, Albumin 1.6 L, Globulin 4.4 H, Albumin/Globulin Ratio 0.4 L Current Medications Acetaminophen (Acetaminophen 650 Mg Suppository) 650 mg RECTAL Q4H PRN PRN PRN Reason: TEMP > 100.5 F Last Admin: 03/17/20 14:44 Dose: 650 mg Documented by: Chlorhexidine Gluconate (Chlorhexidine 15 Ml) 15 ml PO BID [facility] Last Admin: 03/19/20 08:53 Dose: 15 ml Documented by: Dexamethasone Sodium Phosphate (Dexamethasone 10 Mg/Ml Vial) 6 mg IV DAILY [facility] Stop: 03/23/20 10:01 Last Admin: 03/19/20 08:53 Dose: 6 mg Documented by: Famotidine (Famotidine 20 Mg Tablet) 20 mg PO BID [facility] Last Admin: 03/19/20 08:52 Dose: 20 mg Documented by: Propofol (Diprivan) 1,000 mg in 100 mls @ 5.496 mls/hr CONT INF .Q12H [facility]; Protocol Last Titration: 03/19/20 15:00 Dose: 20 mcg/kg/min, 11 mls/hr Documented by: Fentanyl Citrate 1,000 mcg/ (Sodium Chloride) 100 mls @ 5 mls/hr CONT INF .Q20H [facility]; Protocol Last Titration: 03/19/20 08:00 Dose: 150 mcg/hr, 15 mls/hr Documented by: Enteral Nutritional Formula (Vital Af 1.2 Rajendra Liquid) 1,000 mls @ 70 mls/hr GT .[id number] [facility] Last Admin: 03/19/20 05:48 Dose: 70 mls/hr Documented by: Ondansetron HCl (Ondansetron 4 Mg/2 Ml Vial) 4 mg IV Q8H PRN PRN PRN Reason: NAUSEA/VOMITING Senna/Docusate Sodium (Senna/Docusate Sodium 1 Tablet) 2 tablet PO BID [facility] Last Admin: 03/19/20 08:52 Dose: 2 tablet Documented by: Sodium Chloride (0.9% Saline Lock 10 Ml Syringe) 10 - 40 ml IV UD PRN PRN Reason: SALINE FLUSH Last Admin: 03/17/20 04:14 Dose: 40 ml Documented by: Medical Necessity - Tobacco Use Smoking Status: Never smoker Tobacco Use: Non-smoker Route of nutrition/ use of supplements: [] Nutritional Intake: [] IV Site: [] Carrillo Catheter: [] - Assessment/Plan Antibiotics: [] Assessment/Plan: [] Active and Suspected Problems Acute respiratory failure with hypoxia (Acute) Pneumonia due to COVID-19 virus (Acute) Hyperglycemia (Acute) Abnormal LFTs (liver function tests) (Acute) Sat of 78% on arrival. Sx started a week prior to admit 03/14. recovering but was never tested. On dex; now holding lovenox, remdesivir. Received plasma 03/15. CT showed no PE. Worsening O2, work of breathing, and mental status. Will follow
[2020-03-19 17:01] LABS: Bedside Glucose 284 mg/dL (70-110)
[2020-03-20] VITALS (34 sets, daily range): BP systolic 111–148; BP diastolic 62–74; PULSE 95–120; RESP 14–30; TEMP 37.1–37.9; O2SAT 85–96
[2020-03-20] MEDS: Propofol 10MG/Ml 1,000 MG/100 ML Bottle 11 MG CONT INF (01:00)
[2020-03-20 03:14] LABS: Hematocrit 37.9 % (40-54); Hemoglobin 11.9 g/dL (13.0-16.5); Mean Corp Hgb Conc 31.4 g/dL (32-36); Mean Corpuscular Hgb 31.2 pg (27.0-32.0); Mean Corpuscular Volume 99.2 fL (80-94); Platelet Count 176 K/mm3 (150-450); RBC Distribution Width CV 15.8 % (11.6-14.6); RBC Distribution Width SD 57.5 fl (35.1-43.9); Red Blood Count 3.82 M/mm3 (4.6-6.2); White Blood Count 16.1 K/mm3 (4.4-11.0)
--- NOTE | 2020-03-20 03:20 | NURSING ---
Report received from jesús loya at this time.
[2020-03-20 03:42] LABS: ALB/GLOB Ratio 0.4 RATIO (0.9-2.4); AST(SGOT) 60 U/L (15-37); Alanine Aminotransfer ALT/SGPT 88 U/L (16-61); Albumin, Serum 1.6 g/dL (3.2-5.0); Alkaline Phosphatase 96 U/L (45-117); Anion Gap 3 (5-15); BUN 38 mg/dL (7-18); BUN/Creat Ratio 39.5 RATIO (10-20); Calcium,Total 7.3 mg/dL (8.5-10.1); Chloride 109 mmol/L (98-107); Creatinine, Serum 0.96 mg/dL (0.70-1.30); EST Glomerular Filtration Rate 83 mL/min (>60); Est Glom Filt Rate - Afr Amer 100 mL/min (>60); Estimated Creatinine Clearance 79.53 ml/min; Globulin 4.5 g/dL (2.2-4.2); Glucose 138 mg/dL (74-106); Potassium 5.2 mmol/L (3.5-5.1); Protein, Total 6.1 g/dL (6.4-8.2); Sodium Level 144 mmol/L (136-145)
[2020-03-20] MEDS: Propofol 10MG/Ml 1,000 MG/100 ML Bottle 13.7 MG CONT INF (03:51)
[2020-03-20] MEDS: TITRATION PARAMETER CHANGE 1 EACH IV (04:36)
[2020-03-20] MEDS: Vital AF 1.2 Cal Liquid 1,000 ML 70 ML GT ×2 (06:26→16:43)
--- NOTE | 2020-03-20 09:02 | PCM.PN.INT ---
Subjective: Patient did okay overnight. Patient is still requiring significant amounts of supplemental oxygen. Patient has had some sinus tachycardia. Patient was reportedly improving on oxygenation, but had an episode following bathing with desaturation requiring increase in PEEP and FiO2. Patient then developed sinus tachycardia. This has been slowly improving General: - - Intubated and sedated. RASS -2. Wai appearance. HEENT: Atraumatic, PERRLA, EOMI, Normocephalic, - - Scleral injection without icterus Oral: Moist Mucosa, No Gingival or Mucosal Lesions/ Ulcerations, - - Edentulous Neck: Supple, No JVD, No Nodes, Trachea Midline Lungs: No wheeze, No rales, Diminished, Rhonchi - Bilateral, - - Symmetric expansion. Cardiovascular: Normal S1, Normal S2, No murmurs, No rub noted, No Gallop, Tachycardic Abdomen: Bowel Sounds Present, Soft, Non Tender, Non-Distended Extremities: No clubbing, No cyanosis, Edema Skin: No rashes, No breakdown Musculoskeletal: No Tenderness to Palpation of Joints or Extremities Lymphatic: No Cervical, Supraclavicular, or Inguinal Adenopathy Neurological: Cranial nerves II-XII grossly intact, Neuro grossly intact Psych/Mental Status: Flat Affect Vital Signs Temp Pulse Resp BP Pulse Ox 37.9 C H 107 H 24 H 111/65 94 03/20/20 06:00 03/20/20 08:00 03/20/20 08:00 03/20/20 08:00 03/20/20 08:00 Oxygen Flow Rate (L/min) 65 Oxygen Delivery Method Mechanical Ventilator Weight: 92.2 kg Body Mass Index (BMI) 28.2 Finger Stick Blood Glucose 119 Intake and Output for Last 24 Hours 03/18/20 03/19/20 03/20/20 23:59 23:59 23:59 Intake Total 621.84 / 648.14 2058.92 / 2084.92 1156.51 / 1156.51 Output Total 1245 / 1320 2085 / 2235 1100 / 1100 Balance -623.16 / -671.86 -26.08 / -150.08 56.51 / 56.51 Labs (Last 48 Hours) 03/18/20 03/18/20 03/18/20 09:20 11:11 14:49 WBC RBC Hgb Hct MCV MCH MCHC RDW Std Deviation RDW Coeff of Maxim Plt Count MPV Specimen Type ART ART Sample Site R Radial L Brach pH 7.36 7.39 Bicarbonate Actual 25.6 27.8 H Total CO2 27 29 Base Excess 0 3 H O2 Saturation 75 L 96 O2 % 100 90 ABG pCO2 45.7 H 46.1 H ABG pO2 42 L 81 Augusto Test Positive Respiration Rate 14 14 O2 Delivery Device ET Tube ET Tube Vent Mode AC AC Tidal Volume 450 450 POC PEEP 16 16 Sodium Potassium Chloride Carbon Dioxide Anion Gap BUN Creatinine Estim Creat Clear Calc Est GFR (MDRD) Af Amer Est GFR (MDRD) Non-Af BUN/Creatinine Ratio Glucose Calcium Total Bilirubin AST ALT Alkaline Phosphatase Total Creatine Kinase 73 Total Protein Albumin Globulin Albumin/Globulin Ratio Triglycerides 124 POC Glucose 03/19/20 03/19/20 03/19/20 04:40 04:40 16:49 WBC 14.9 H RBC 3.78 L Hgb 11.6 L Hct 36.7 L MCV 97.1 H MCH 30.7 MCHC 31.6 L RDW Std Deviation 55.1 H RDW Coeff of Maixm 15.4 H Plt Count 243 MPV 9.8 Specimen Type Sample Site pH Bicarbonate Actual Total CO2 Base Excess O2 Saturation O2 % ABG pCO2 ABG pO2 Augusto Test Respiration Rate O2 Delivery Device Vent Mode Tidal Volume POC PEEP Sodium 143 Potassium 4.3 Chloride 110 H Carbon Dioxide 29.0 Anion Gap 4 L BUN 42 H Creatinine 1.06 Estim Creat Clear Calc 72.02 Est GFR (MDRD) Af Amer 89 Est GFR (MDRD) Non-Af 74 BUN/Creatinine Ratio 39.6 H Glucose 192 H Calcium 7.7 L Total Bilirubin 0.60 AST 51 H ALT 108 H Alkaline Phosphatase 96 Total Creatine Kinase Total Protein 6.0 L Albumin 1.6 L Globulin 4.4 H Albumin/Globulin Ratio 0.4 L Triglycerides POC Glucose 284 H 03/20/20 03/20/20 02:50 02:50 WBC 16.1 H RBC 3.82 L Hgb 11.9 L Hct 37.9 L MCV 99.2 H MCH 31.2 MCHC 31.4 L RDW Std Deviation 57.5 H RDW Coeff of Maxim 15.8 H Plt Count 176 MPV 11.0 Specimen Type Sample Site pH Bicarbonate Actual Total CO2 Base Excess O2 Saturation O2 % ABG pCO2 ABG pO2 Augusto Test Respiration Rate O2 Delivery Device Vent Mode Tidal Volume POC PEEP Sodium 144 Potassium 5.2 H Chloride 109 H Carbon Dioxide 32.0 Anion Gap 3 L BUN 38 H Creatinine 0.96 Estim Creat Clear Calc 79.53 Est GFR (MDRD) Af Amer 100 Est GFR (MDRD) Non-Af 83 BUN/Creatinine Ratio 39.5 H Glucose 138 H Calcium 7.3 L Total Bilirubin 0.70 AST 60 H ALT 88 H Alkaline Phosphatase 96 Total Creatine Kinase Total Protein 6.1 L Albumin 1.6 L Globulin 4.5 H Albumin/Globulin Ratio 0.4 L Triglycerides POC Glucose Microbiology 03/14/20 07:05 Blood Culture (Wb) - Anticubital Left Blood Culture - Final No growth in 5 days. 03/14/20 06:55 Blood Culture (Wb) - Right Hand Blood Culture - Final No growth in 5 days. Medical Necessity - Tobacco Use Smoking Status: Never smoker Tobacco Use: Non-smoker Assessment/Plan All Active Problems Acute respiratory failure with hypoxia (Acute) Pneumonia due to COVID-19 virus (Acute) Hyperglycemia (Acute) Acute pancreatitis (Acute) Abnormal LFTs (liver function tests) (Acute) RECOMMENDATIONS: 1. Continue therapeutic anticoagulation, systemic steroids, remdesivir 2. Spontaneous breathing and awakening trials per protocol. Wean FiO2 as tolerated, then PEEP 3. Attempt volume restriction if possible. Possible diuretic therapy in the next 24 to 48 hours pending weights 4. Monitor liver function closely given remdesivir 5. Antibiotics per infectious disease if indicated 6. Confirmed CODE STATUS DNR Comfort Care arrest with intubation IMPRESSIONS: 1. Acute hypoxic respiratory failure secondary to COVID-19 pneumonia/ARDS Patient with progressive decline that ultimately required intubation on 03/18/2020 secondary to respiratory muscle fatigue. Patient currently is on appropriate sedation for vent synchrony. Spontaneous breathing and awakening trials per protocol. Okay to continue with COVID-19 protocol per infectious disease. There is no indication for discontinuation from a liver function standpoint. Patient has had significant increase in bilateral infiltrates despite weight remaining relatively stable consistent with the development of ARDS. Episode this morning appears to be mucous plugging. Patient appears to be improving at this time, but if not improving by mid afternoon, may obtain a chest x-ray for evaluation. 2. Severe sepsis secondary to COVID-19 and possible UTI Patient with severe sepsis on presentation. Patient appears to be improving with control of hypoxia. Urine was suggestive of an UTI, but culture appears to be normal. Patient is not currently on systemic antibiotics. Patient does have Corynebacterium growing from back wound, but this is readily draining, so likely does not require antibiotics. Infectious disease has been consulted. 3. Elevated troponin secondary to supply demand mismatch Patient with some elevated troponins, but given the lack of ST changes and profound hypoxia on presentation, supply demand mismatch is suspected. Patient will be placed on systemic anticoagulation for problem #1. Patient may benefit from a stress test as an outpatient, but would defer to PCP. Okay to hold off on cardiology consult from my perspective. 4. Acute kidney injury Improving. Previous baseline creatinine was approximately 0.7. Patient is making good urine at this time. No indication for renal replacement therapy. Continue to monitor electrolytes and replete as necessary. Possible diuretic challenge tomorrow pending fluid status. Hyperkalemia on labs likely secondary to hemolysis. No EKG changes noted. TIME: 33 minutes critical care time spent addressing patient's acute hypoxic respiratory failure, severe sepsis, elevated troponin, acute kidney injury, review of all data and collaboration with care team (8 AM to 9 AM) [phone] [id number] Critical care first hour
[2020-03-20] MEDS: Senna/Docusate Sodium 1 Tablet 2 TABLET PO ×2 (10:19→19:46)
[2020-03-20] MEDS: Famotidine 20 MG Tablet PO ×2 (10:19→19:47)
[2020-03-20] MEDS: Polyethylene Glycol 3350 17 GM PACKET PO (10:19)
[2020-03-20] MEDS: Chlorhexidine 15 ML PO ×2 (10:19→19:47)
[2020-03-20] MEDS: dexAMETHasone 10 MG/ML Vial 6 MG IV (10:46)
--- NOTE | 2020-03-20 11:00 | PN_ITS ---
Patient Problems: Active and Suspected Problems Acute respiratory failure with hypoxia (Acute) Pneumonia due to COVID-19 virus (Acute) Hyperglycemia (Acute) Abnormal LFTs (liver function tests) (Acute) Subjective: Intubated and sedated there is been some improvement in PEEP from 18 to 16 and his FiO2 is down to 70% Vitals/I&O's: Vital Signs Temp Pulse Resp BP Pulse Ox 100.2 F H 105 H 25 H 117/67 94 03/20/20 06:00 03/20/20 09:00 03/20/20 09:00 03/20/20 09:00 03/20/20 09:00 Oxygen Flow Rate (L/min) 65 Oxygen Delivery Method Mechanical Ventilator Weight: 203 lb 4.259 oz Body Mass Index (BMI) 28.2 Finger Stick Blood Glucose 119 Intake and Output for Last 24 Hours 03/18/20 03/19/20 03/20/20 23:59 23:59 23:59 Intake Total 621.84 / 648.14 2058.92 / 2084.92 1236.66 / 1236.66 Output Total 1245 / 1320 2085 / 2235 1100 / 1100 Balance -623.16 / -671.86 -26.08 / -150.08 136.66 / 136.66 General: - - Intubated and sedated HEENT: Atraumatic, PERRLA, Normocephalic Oral: Dry Mucosa Neck: Supple, No JVD Lungs: No rhonchi, No wheeze, No rales, Diminished Cardiovascular: Regular Rhythm, Normal S1, Normal S2, No murmurs, Tachycardic Abdomen: Soft, Non Tender, Non-Distended, No Hepato-splenomegaly Extremities: No edema, Capillary Refill Less than 3 Seconds Skin: No rashes, No breakdown Neurological: - - Intubated and sedated Psych/Mental Status: - - Intubated and sedated Microbiology Past 72 Hours 03/14/20 07:05 Blood Culture (Wb) - Anticubital Left Blood Culture - Final No growth in 5 days. 03/14/20 06:55 Blood Culture (Wb) - Right Hand Blood Culture - Final No growth in 5 days. 03/15/20 14:10 Wound - Back Gram Stain - Final 03/15/20 14:10 Wound - Back Wound Culture - Final Corynebacterium minutissimum Laboratory Results 03/19/20 16:49: POC Glucose 284 H 03/20/20 02:50: WBC 16.1 H, RBC 3.82 L, Hgb 11.9 L, Hct 37.9 L, MCV 99.2 H, MCH 31.2, MCHC 31.4 L, RDW Std Deviation 57.5 H, RDW Coeff of Maxim 15.8 H, Plt Count 176, MPV 11.0 03/20/20 02:50: Sodium 144, Potassium 5.2 H, Chloride 109 H, Carbon Dioxide 32.0, Anion Gap 3 L, BUN 38 H, Creatinine 0.96, Estim Creat Clear Calc 79.53, Est GFR (MDRD) Af Amer 100, Est GFR (MDRD) Non-Af 83, BUN/Creatinine Ratio 39.5 H, Glucose 138 H, Calcium 7.3 L, Total Bilirubin 0.70, AST 60 H, ALT 88 H, Alkaline Phosphatase 96, Total Protein 6.1 L, Albumin 1.6 L, Globulin 4.5 H, Albumin/Globulin Ratio 0.4 L Current Medications Acetaminophen (Acetaminophen 650 Mg Suppository) 650 mg RECTAL Q4H PRN PRN PRN Reason: TEMP > 100.5 F Last Admin: 03/17/20 14:44 Dose: 650 mg Documented by: Chlorhexidine Gluconate (Chlorhexidine 15 Ml) 15 ml PO BID [facility] Last Admin: 03/20/20 10:19 Dose: 15 ml Documented by: Dexamethasone Sodium Phosphate (Dexamethasone 10 Mg/Ml Vial) 6 mg IV DAILY [facility] Stop: 03/23/20 10:01 Last Admin: 03/20/20 10:46 Dose: 6 mg Documented by: Famotidine (Famotidine 20 Mg Tablet) 20 mg PO BID [facility] Last Admin: 03/20/20 10:19 Dose: 20 mg Documented by: Propofol (Diprivan) 1,000 mg in 100 mls @ 5.532 mls/hr CONT INF .Q12H [facility]; Protocol Last Titration: 03/20/20 10:00 Dose: 25 mcg/kg/min, 13.8 mls/hr Documented by: Fentanyl Citrate 1,000 mcg/ (Sodium Chloride) 100 mls @ 5 mls/hr CONT INF .Q20H [facility]; Protocol Last Titration: 03/20/20 10:00 Dose: 175 mcg/hr, 17.5 mls/hr Documented by: Enteral Nutritional Formula (Vital Af 1.2 Rajendra Liquid) 1,000 mls @ 70 mls/hr GT .[id number] [facility] Last Admin: 03/20/20 09:17 Dose: Not Given Documented by: Ondansetron HCl (Ondansetron 4 Mg/2 Ml Vial) 4 mg IV Q8H PRN PRN PRN Reason: NAUSEA/VOMITING Senna/Docusate Sodium (Senna/Docusate Sodium 1 Tablet) 2 tablet PO BID [facility] Last Admin: 03/20/20 10:19 Dose: 2 tablet Documented by: Sodium Chloride (0.9% Saline Lock 10 Ml Syringe) 10 - 40 ml IV UD PRN PRN Reason: SALINE FLUSH Last Admin: 03/17/20 04:14 Dose: 40 ml Documented by: STROKE Vital Signs/Narrative: Vital Signs Pulse Resp BP Pulse Ox 03/20/20 09:00 105 H 25 H 117/67 94 03/20/20 08:00 104 H 24 H 111/65 94 03/20/20 07:31 107 H 29 H 93 Medical Necessity - Tobacco Use Smoking Status: Never smoker Tobacco Use: Non-smoker Assessment/Plan All Active Problems Acute respiratory failure with hypoxia (Acute) Pneumonia due to COVID-19 virus (Acute) Hyperglycemia (Acute) Acute pancreatitis (Acute) Abnormal LFTs (liver function tests) (Acute) 1. Severe sepsis secondary to acute Covid pneumonia with acute hypoxic respiratory failure/elevated troponin secondary to demand ischemia -Per report his oxygen saturations were in the 70s while on a nonrebreather prior to being initiated on BiPAP therapy which has stabilized his oxygen saturations -He received convalescent plasma on admission, as well as remdesivir, continue with Decadron -Urine strep and Legionella antigens negative -D-dimer is a little bit elevated however CTA was negative for a PE, his therapeutic Lovenox was discontinued and he did have a little bit of hemoptysis after intubation yesterday. -His troponin started climbing down, therefore likely demand ischemia from his hypoxia. -He was intubated yesterday and had to have an increase in his PEEP this morning secondary to agitation 2. Right upper back abscess -He had a large boil on his back which was lanced by his physician 1 to 2 weeks ago -Packing removed, continue to monitor -We will consult wound care for evaluation and management DVT: SCDs Inpatient E&M: [id number] Subs Hosp L2
[2020-03-20] MEDS: Propofol 10MG/Ml 1,000 MG/100 ML Bottle 13.8 MG CONT INF ×3 (11:20→23:20)
[2020-03-21] VITALS (36 sets, daily range): BP systolic 96–180; BP diastolic 46–76; PULSE 98–157; RESP 14–141; TEMP 37.4–40.8; O2SAT 88–96
[2020-03-21] MEDS: Vital AF 1.2 Cal Liquid 1,000 ML 70 ML GT ×4 (00:52→23:11)
[2020-03-21] MEDS: Propofol 10MG/Ml 1,000 MG/100 ML Bottle 13.8 MG CONT INF ×3 (01:41→16:24)
[2020-03-21 03:31] LABS: Absolute Lymphocyte Count 0.93 X10^3/uL (0.83-4.51); Absolute Neutrophil Count 14.5 X10^3/uL (2.0-7.7); Basophil# 0.03 X10^3/uL; Basophil% 0.2 % (0-1); Eosinophil# 0.01 X10^3/uL; Eosinophils% 0.1 % (0-5); Hematocrit 40.9 % (40-54); Hemoglobin 12.4 g/dL (13.0-16.5); Lymphocyte # 0.93 X10^3/ul (4.0); Lymphocyte % 5.6 % (19-41); Mean Corp Hgb Conc 30.3 g/dL (32-36); Mean Corpuscular Hgb 30.1 pg (27.0-32.0); Mean Corpuscular Volume 99.3 fL (80-94); Mean Platelet Vol. 11.7 fl (6.2-12.0); Monocyte# 0.87 X10^3/uL; Monocyte% 5.3 % (0-10); NRBC Flagged by Analyzer 0 % (0-5); Neutrophil # 14.45 X10^3/uL (2.7-7.7); Neutrophil % 87.5 % (47-70); POSITIVE COUNT YES; Platelet Count 77 K/mm3 (150-450); RBC Distribution Width CV 15.6 % (11.6-14.6); RBC Distribution Width SD 57.7 fl (35.1-43.9); Red Blood Count 4.12 M/mm3 (4.6-6.2); White Blood Count 16.5 K/mm3 (4.4-11.0)
[2020-03-21 03:33] LABS: Differential Indicated SCAN CRITERIA MET
[2020-03-21 03:44] LABS: Anion Gap 3 (5-15); BUN 41 mg/dL (7-18); Calcium,Total 7.8 mg/dL (8.5-10.1); Chloride 111 mmol/L (98-107); EST Glomerular Filtration Rate 79 mL/min (>60); Est Glom Filt Rate - Afr Amer 96 mL/min (>60); Estimated Creatinine Clearance 76.35 ml/min; Glucose 195 mg/dL (74-106); Potassium 4.8 mmol/L (3.5-5.1); Sodium Level 149 mmol/L (136-145)
[2020-03-21 04:19] LABS: Anisocytosis 1+; Hypochromasia 1+; Macrocytosis RARE; Platelet Estimate MOD DEC (ADEQ)
--- NOTE | 2020-03-21 06:27 | RAD_ITS ---
STUDY: X-RAY CHEST REASON FOR EXAM: Male, 69 years old. vent changes TECHNIQUE: Single AP portable view of the chest. COMPARISON: 03/19/2020 FINDINGS: ET tube is at the level of the clavicles. Enteric tube courses below the diaphragms, tip is excluded from view. Multiple external leads and wires overlie the lung bases. Left upper extremity PICC line tip overlies the SVC. There is marked diffuse pulmonary interstitial thickening and hazy airspace opacities, similar to prior exam. There is no demonstrated pleural abnormality. Normal size heart. Normal mediastinum and [place]. Normal visualized pulmonary arteries. Normal visualized aortic arch and descending thoracic aorta. Normal visualized thoracic spine. Normal visualized ribs, clavicles, and shoulders. There is no demonstrated abnormality of the visualized soft tissue structures of the upper abdomen. RAD/Chest 1 View (Portable) IMPRESSION: No significant interval change. Electronically Signed: Pal Clarke, at 8:19 EST Tel , Service support ,
--- NOTE | 2020-03-21 07:56 | PN_ITS ---
Subjective: Patient did okay overnight. Patient's oxygenation did worsen requiring an increased to 80% FiO2. Patient has tolerated tube feeds. Nursing and re spiratory are reporting significant oral secretions. General: - - RASS -2. Appears stated age. Fair vent synchrony. Slightly diaphoretic. HEENT: Atraumatic, PERRLA, EOMI, Normocephalic, - - No scleral icterus or injection noted Oral: Moist Mucosa, No Gingival or Mucosal Lesions/ Ulcerations Neck: Supple, No JVD, No Nodes, Trachea Midline Lungs: Diminished, Rales - Left greater than right Cardiovascular: Regular rate, Regular Rhythm, Normal S1, Normal S2, No murmurs, No rub noted, No Gallop Abdomen: Bowel Sounds Present, Soft, Non Tender, Non-Distended Extremities: No clubbing, No cyanosis, Edema - Trace to 1+ Skin: No rashes, No breakdown Musculoskeletal: No Tenderness to Palpation of Joints or Extremities Lymphatic: No Cervical, Supraclavicular, or Inguinal Adenopathy Neurological: Cranial nerves II-XII grossly intact, Neuro grossly intact, Motor Exam 5/5 strength throughout Psych/Mental Status: Flat Affect Vital Signs Temp Pulse Resp BP Pulse Ox 37.7 C H 112 H 31 H 136/67 H 91 03/21/20 03:00 03/21/20 07:11 03/21/20 07:11 03/21/20 07:00 03/21/20 07:11 Oxygen Flow Rate (L/min) 65 Oxygen Delivery Method Mechanical Ventilator Weight: 89.3 kg Body Mass Index (BMI) 28.2 Finger Stick Blood Glucose 119 Intake and Output for Last 24 Hours 03/19/20 03/20/20 03/21/20 23:59 23:59 22:59 Intake Total 2058.92 / 2084.92 2699.98 / 3151.68 1086.47 / 1086.47 Output Total 2085 / 2235 2700 / 3125 950 / 950 Balance -26.08 / -150.08 -0.02 / 26.68 136.47 / 136.47 Labs (Last 48 Hours) 03/19/20 03/20/20 03/20/20 16:49 02:50 02:50 WBC 16.1 H RBC 3.82 L Hgb 11.9 L Hct 37.9 L MCV 99.2 H MCH 31.2 MCHC 31.4 L RDW Std Deviation 57.5 H RDW Coeff of Maxim 15.8 H Plt Count 176 MPV 11.0 Immature Gran % (Auto) Neut % (Auto) Lymph % (Auto) [place] % (Auto) Eos % (Auto) Baso % (Auto) Absolute Neuts (auto) Absolute Lymphs (auto) Nucleated RBC % Platelet Estimate Hypochromasia Anisocytosis Macrocytosis Sodium 144 Potassium 5.2 H Chloride 109 H Carbon Dioxide 32.0 Anion Gap 3 L BUN 38 H Creatinine 0.96 Estim Creat Clear Calc 79.53 Est GFR (MDRD) Af Amer 100 Est GFR (MDRD) Non-Af 83 BUN/Creatinine Ratio 39.5 H Glucose 138 H Calcium 7.3 L Total Bilirubin 0.70 AST 60 H ALT 88 H Alkaline Phosphatase 96 Total Protein 6.1 L Albumin 1.6 L Globulin 4.5 H Albumin/Globulin Ratio 0.4 L POC Glucose 284 H 03/21/20 03/21/20 03:20 03:20 WBC 16.5 H RBC 4.12 L Hgb 12.4 L Hct 40.9 MCV 99.3 H MCH 30.1 MCHC 30.3 L RDW Std Deviation 57.7 H RDW Coeff of Maxim 15.6 H Plt Count 77 L MPV 11.7 Immature Gran % (Auto) 1.300 H Neut % (Auto) 87.5 H Lymph % (Auto) 5.6 L [place] % (Auto) 5.3 Eos % (Auto) 0.1 Baso % (Auto) 0.2 Absolute Neuts (auto) 14.5 H Absolute Lymphs (auto) 0.93 Nucleated RBC % 0 Platelet Estimate MOD DEC Hypochromasia 1+ Anisocytosis 1+ Macrocytosis RARE Sodium 149 H Potassium 4.8 Chloride 111 H Carbon Dioxide 35.0 H Anion Gap 3 L BUN 41 H Creatinine 1.00 Estim Creat Clear Calc 76.35 Est GFR (MDRD) Af Amer 96 Est GFR (MDRD) Non-Af 79 BUN/Creatinine Ratio 41.0 H Glucose 195 H Calcium 7.8 L Total Bilirubin AST ALT Alkaline Phosphatase Total Protein Albumin Globulin Albumin/Globulin Ratio POC Glucose Microbiology 03/14/20 07:05 Blood Culture (Wb) - Anticubital Left Blood Culture - Final No growth in 5 days. 03/14/20 06:55 Blood Culture (Wb) - Right Hand Blood Culture - Final No growth in 5 days. Medical Necessity - Tobacco Use Smoking Status: Never smoker Tobacco Use: Non-smoker Assessment/Plan All Active Problems Acute respiratory failure with hypoxia (Acute) Pneumonia due to COVID-19 virus (Acute) Hyperglycemia (Acute) Acute pancreatitis (Acute) Abnormal LFTs (liver function tests) (Acute) RECOMMENDATIONS: 1. Continue therapeutic anticoagulation, systemic steroids, remdesivir 2. Spontaneous breathing and awakening trials per protocol. Wean FiO2 as tolerated, then PEEP 3. Attempt volume restriction if possible. Weights have trended down 4. Monitor liver function closely given remdesivir 5. Antibiotics per infectious disease if indicated 6. Confirmed CODE STATUS DNR Comfort Care arrest with intubation IMPRESSIONS: 1. Acute hypoxic respiratory failure secondary to COVID-19 pneumonia/ARDS Patient with progressive decline that ultimately required intubation on 03/18/2020 secondary to respiratory muscle fatigue. Patient currently is on appropriate sedation for vent synchrony. Spontaneous breathing and awakening trials per protocol. Okay to continue with COVID-19 protocol per infectious disease. There is no indication for discontinuation from a liver function standpoint. Patient has had significant increase in bilateral infiltrates despite weight remaining relatively stable consistent with the development of ARDS. Chest x-ray shows bilateral infiltrates with high endotracheal tube. This will be advanced. We will hold off on diuretic therapy as patient appears to be having high insensible losses with a decrease in weight. 2. Severe sepsis secondary to COVID-19 and possible UTI Patient with severe sepsis on presentation. Patient appears to be improving with control of hypoxia. Urine was suggestive of an UTI, but culture appears to be normal. Patient is not currently on systemic antibiotics. Patient does have Corynebacterium growing from back wound, but this is readily draining, so likely does not require antibiotics. Infectious disease has been consulted. 3. Elevated troponin secondary to supply demand mismatch Patient with some elevated troponins, but given the lack of ST changes and profound hypoxia on presentation, supply demand mismatch is suspected. Patient will be placed on systemic anticoagulation for problem #1. Patient may benefit from a stress test as an outpatient, but would defer to PCP. Okay to hold off on cardiology consult from my perspective. 4. Acute kidney injury Stable. Previous baseline creatinine was approximately 0.7. Patient is making good urine at this time. No indication for renal replacement therapy. Continue to monitor electrolytes and replete as necessary. Hyperkalemia on yesterday's labs likely secondary to hemolysis. No EKG changes noted. TIME: 31 minutes critical care time spent addressing patient's acute hypoxic respiratory failure, severe sepsis, elevated troponin, acute kidney injury, review of all data and collaboration with care team (6 AM to 7 AM) [phone]: [id number] Critical care first hour
--- NOTE | 2020-03-21 09:20 | PN_ITS ---
Patient Problems: Active and Suspected Problems Acute respiratory failure with hypoxia (Acute) Pneumonia due to COVID-19 virus (Acute) Hyperglycemia (Acute) Abnormal LFTs (liver function tests) (Acute) Subjective: Intubated and sedated. He had improved down to 6% FiO2 yesterday however with changing his position for comfort he is gone back up to 80% today Vitals/I&O's: Vital Signs Temp Pulse Resp BP Pulse Ox 99.4 F H 113 H 31 H 147/72 H 92 03/21/20 09:00 03/21/20 09:00 03/21/20 09:00 03/21/20 09:00 03/21/20 09:00 Oxygen Flow Rate (L/min) 65 Oxygen Delivery Method Mechanical Ventilator Weight: 196 lb 13.965 oz Body Mass Index (BMI) 28.2 Finger Stick Blood Glucose 119 Intake and Output for Last 24 Hours 03/19/20 03/20/20 03/21/20 23:59 23:59 22:59 Intake Total 2058.92 / 2084.92 2699.98 / 3151.68 1226.47 / 1226.47 Output Total 2084 / 5 2700 / 3125 1250 / 1250 Balance -26.08 / -150.08 -0.02 / 26.68 -23.53 / -23.53 General: - - Intubated and sedated HEENT: Atraumatic, PERRLA, Normocephalic Oral: Dry Mucosa Neck: Supple, No JVD Lungs: No rhonchi, No wheeze, No rales, Diminished Cardiovascular: Regular Rhythm, Normal S1, Normal S2, No murmurs, Tachycardic Abdomen: Soft, Non Tender, Non-Distended, No Hepato-splenomegaly Extremities: Trace edema, Capillary Refill Less than 3 Seconds Skin: No rashes, No breakdown Neurological: - - Intubated and sedated Psych/Mental Status: - - Intubated and sedated Microbiology Past 72 Hours 03/14/20 07:05 Blood Culture (Wb) - Anticubital Left Blood Culture - Final No growth in 5 days. 03/14/20 06:55 Blood Culture (Wb) - Right Hand Blood Culture - Final No growth in 5 days. Laboratory Results 03/21/20 03:20: WBC 16.5 H, RBC 4.12 L, Hgb 12.4 L, Hct 40.9, MCV 99.3 H, MCH 30.1, MCHC 30.3 L, RDW Std Deviation 57.7 H, RDW Coeff of Maxim 15.6 H, Plt Count 77 L, MPV 11.7, Immature Gran % (Auto) 1.300 H, Neut % (Auto) 87.5 H, Lymph % (Auto) 5.6 L, [place] % (Auto) 5.3, Eos % (Auto) 0.1, Baso % (Auto) 0.2, Absolute Neuts (auto) 14.5 H, Absolute Lymphs (auto) 0.93, Nucleated RBC % 0, Platelet Estimate MOD DEC, Hypochromasia 1+, Anisocytosis 1+, Macrocytosis RARE 03/21/20 03:20: Sodium 149 H, Potassium 4.8, Chloride 111 H, Carbon Dioxide 35.0 H, Anion Gap 3 L, BUN 41 H, Creatinine 1.00, Estim Creat Clear Calc 76.35, Est GFR (MDRD) Af Amer 96, Est GFR (MDRD) Non-Af 79, BUN/Creatinine Ratio 41.0 H, Glucose 195 H, Calcium 7.8 L Current Medications Acetaminophen (Acetaminophen 650 Mg Suppository) 650 mg RECTAL Q4H PRN PRN PRN Reason: TEMP > 100.5 F Last Admin: 03/17/20 14:44 Dose: 650 mg Documented by: Chlorhexidine Gluconate (Chlorhexidine 15 Ml) 15 ml PO BID [facility] Last Admin: 03/20/20 19:47 Dose: 15 ml Documented by: Dexamethasone Sodium Phosphate (Dexamethasone 10 Mg/Ml Vial) 6 mg IV DAILY [facility] Stop: 03/23/20 10:01 Last Admin: 03/20/20 10:46 Dose: 6 mg Documented by: Famotidine (Famotidine 20 Mg Tablet) 20 mg PO BID [facility] Last Admin: 03/20/20 19:47 Dose: 20 mg Documented by: Propofol (Diprivan) 1,000 mg in 100 mls @ 5.532 mls/hr CONT INF .Q12H [facility]; Protocol Last Titration: 03/21/20 06:00 Dose: 25 mcg/kg/min, 13.8 mls/hr Documented by: Fentanyl Citrate 1,000 mcg/ (Sodium Chloride) 100 mls @ 5 mls/hr CONT INF .Q20H [facility]; Protocol Last Admin: 03/21/20 06:28 Dose: 175 mcg/hr, 17.5 mls/hr Documented by: Enteral Nutritional Formula (Vital Af 1.2 Rajendra Liquid) 1,000 mls @ 70 mls/hr GT .[id number] [facility] Last Admin: 03/21/20 03:29 Dose: 70 mls/hr Documented by: Ondansetron HCl (Ondansetron 4 Mg/2 Ml Vial) 4 mg IV Q8H PRN PRN PRN Reason: NAUSEA/VOMITING Senna/Docusate Sodium (Senna/Docusate Sodium 1 Tablet) 2 tablet PO BID [facility] Last Admin: 03/20/20 19:46 Dose: 2 tablet Documented by: Sodium Chloride (0.9% Saline Lock 10 Ml Syringe) 10 - 40 ml IV UD PRN PRN Reason: SALINE FLUSH Last Admin: 03/17/20 04:14 Dose: 40 ml Documented by: STROKE Vital Signs/Narrative: Vital Signs Temp Pulse Resp BP Pulse Ox 03/21/20 09:00 99.4 F H 113 H 31 H 147/72 H 92 03/21/20 08:00 110 H 30 H 142/71 H 92 03/21/20 07:11 112 H 31 H 91 03/21/20 07:00 109 H 28 H 136/67 H 92 03/21/20 06:00 109 H 28 H 142/69 H 92 Medical Necessity - Tobacco Use Smoking Status: Never smoker Tobacco Use: Non-smoker Assessment/Plan All Active Problems Acute respiratory failure with hypoxia (Acute) Pneumonia due to COVID-19 virus (Acute) Hyperglycemia (Acute) Acute pancreatitis (Acute) Abnormal LFTs (liver function tests) (Acute) 1. Severe sepsis secondary to acute Covid pneumonia with acute hypoxic respiratory failure/elevated troponin secondary to demand ischemia/hypernatremia -Per report his oxygen saturations were in the 70s while on a nonrebreather prior to being initiated on BiPAP therapy which has stabilized his oxygen saturations -He received convalescent plasma on admission, as well as remdesivir, continue with Decadron -Urine strep and Legionella antigens negative -D-dimer is a little bit elevated however CTA was negative for a PE, his therapeutic Lovenox was discontinued and he did have a little bit of hemoptysis after intubation yesterday. -His troponin started climbing down, therefore likely demand ischemia from his hypoxia. -He was intubated yesterday and had to have an increase in his PEEP this morning secondary to agitation -Sodium is rising, will continue to monitor and may need to increase free water flushes through his OG 2. Right upper back abscess -He had a large boil on his back which was lanced by his physician 1 to 2 weeks prior to admission -Packing removed, continue to monitor -We will consult wound care for evaluation and management DVT: SCDs Inpatient E&M: [id number] Subs Hosp L2
[2020-03-21] MEDS: Chlorhexidine 15 ML PO ×2 (11:06→19:51)
[2020-03-21] MEDS: dexAMETHasone 10 MG/ML Vial 6 MG IV (11:06)
[2020-03-21] MEDS: Senna/Docusate Sodium 1 Tablet 2 TABLET PO ×2 (11:07→19:51)
[2020-03-21] MEDS: Polyethylene Glycol 3350 17 GM PACKET PO (11:07)
[2020-03-21] MEDS: Famotidine 20 MG Tablet PO ×2 (11:07→19:51)
[2020-03-21] MEDS: Labetalol (Prefilled) 20 MG/4 ML 10 MG IV (11:34)
[2020-03-21] MEDS: dilTIAZem 25 MG/5 ML Vial 10 MG IV BOLUS ×2 (14:17→16:38)
[2020-03-21] MEDS: Adenosine 6 MG/2 ML Syringe IV (14:46)
[2020-03-21] MEDS: Adenosine 6 MG/2 ML Syringe 12 MG IV (14:46)
[2020-03-21 17:01] LABS: Magnesium 2.6 mg/dL (1.6-2.6); Phosphorus 2.1 mg/dL (2.5-4.9)
[2020-03-21] MEDS: Amiodarone 360 MG in Dextrose 5% Viaflo Bag 192.8 ML 33.3 MG CONT INF (18:35)
[2020-03-21] MEDS: Acetaminophen 650 MG Suppository RECTAL (19:51)
[2020-03-21] MEDS: Propofol 10MG/Ml 1,000 MG/100 ML Bottle 6.9 MG CONT INF (23:11)
[2020-03-22] VITALS (19 sets, daily range): BP systolic 106–142; BP diastolic 52–64; PULSE 60–134; RESP 14–40; TEMP 36.5–40.1; O2SAT 91–96
--- NOTE | 2020-03-22 01:26 | NURSING ---
Amiodarone states it is done on the JUL, yet there is still a good amount of medication left in the bag. Will continue to run the current bag until empty.
[2020-03-22] MEDS: Amiodarone 360 MG in Dextrose 5% Viaflo Bag 192.8 ML 16.7 MG CONT INF (02:28)
[2020-03-22] MEDS: Vital AF 1.2 Cal Liquid 1,000 ML 70 ML GT (03:46)
[2020-03-22] MEDS: Propofol 10MG/Ml 1,000 MG/100 ML Bottle 6.9 MG CONT INF (03:48)
[2020-03-22 04:12] LABS: Absolute Lymphocyte Count 0.99 X10^3/uL (0.83-4.51); Absolute Neutrophil Count 15.9 X10^3/uL (2.0-7.7); Basophil# 0.03 X10^3/uL; Basophil% 0.2 % (0-1); Eosinophil# 0.01 X10^3/uL; Eosinophils% 0.1 % (0-5); Hematocrit 42.2 % (40-54); Lymphocyte # 0.99 X10^3/ul (4.0); Lymphocyte % 5.6 % (19-41); Mean Corp Hgb Conc 30.8 g/dL (32-36); Mean Corpuscular Hgb 30.6 pg (27.0-32.0); Mean Corpuscular Volume 99.3 fL (80-94); Mean Platelet Vol. 12.9 fl (6.2-12.0); Monocyte# 0.51 X10^3/uL; Monocyte% 2.9 % (0-10); NRBC Flagged by Analyzer 0 % (0-5); Neutrophil # 15.85 X10^3/uL (2.7-7.7); Neutrophil % 89.7 % (47-70); POSITIVE COUNT YES; Platelet Count 58 K/mm3 (150-450); RBC Distribution Width CV 15.3 % (11.6-14.6); Red Blood Count 4.25 M/mm3 (4.6-6.2); White Blood Count 17.7 K/mm3 (4.4-11.0)
[2020-03-22 04:14] LABS: Differential Indicated SCAN CRITERIA MET
[2020-03-22 04:41] LABS: Differential Comment SCANNED; Platelet Estimate MOD DEC (ADEQ)
[2020-03-22 05:30] LABS: Anion Gap 3 (5-15); BUN 62 mg/dL (7-18); BUN/Creat Ratio 50.8 RATIO (10-20); Calcium,Total 7.6 mg/dL (8.5-10.1); Chloride 111 mmol/L (98-107); Creatinine, Serum 1.22 mg/dL (0.70-1.30); EST Glomerular Filtration Rate 63 mL/min (>60); Est Glom Filt Rate - Afr Amer 76 mL/min (>60); Estimated Creatinine Clearance 62.58 ml/min; Glucose 377 mg/dL (74-106); Potassium 4.5 mmol/L (3.5-5.1); Sodium Level 146 mmol/L (136-145)
[2020-03-22] MEDS: TITRATION PARAMETER CHANGE 1 EACH IV (05:38)
--- NOTE | 2020-03-22 06:05 | PN_ITS ---
Subjective: The patient was seen and examined at the bedside this morning. Events from the last 24 hours have been reviewed. The patient is currently afebrile, hemodynamically stable and maintaining appropriate oxygen saturations on assist control mode of mechanical ventilation with an FiO2 requirement of 80% and PEEP of 14. The patient did, however, spike a fever overnight with a T-max of 105.6 ?F. He also went into atrial fibrillation with a rapid ventricular rate. The patient is currently being medically managed with Cardizem and amiodarone. Card iology consultation is pending. The patient is currently documented to be overall net +6 L for the hospital admission. Platelet count is down to 58,000 this morning. Objective: The patient's most recent lab work, culture data and imaging studies have all been personally reviewed. Coronavirus PCR was positive on March 14. General: - - Remains intubated, sedated and mechanically ventilated. HEENT: Atraumatic, PERRLA, Normocephalic Oral: Moist Mucosa, - - Endotracheal and OG tubes remain in place Neck: Supple, No Nodes, Trachea Midline Lungs: Diminished, Rales, Tachypneic Cardiovascular: Normal S1, Normal S2, Irregular Rate, Tachycardic Abdomen: Bowel Sounds Present, Soft, Non Tender Extremities: No clubbing, No cyanosis, Edema Skin: No breakdown Musculoskeletal: No Tenderness to Palpation of Joints or Extremities Lymphatic: No Cervical, Supraclavicular, or Inguinal Adenopathy Neurological: - - No focal neurological deficits. Currently sedated on the ventilator. Vital Signs Temp Pulse Resp BP Pulse Ox 97.7 F L 101 H 25 H 116/63 93 03/22/20 05:00 03/22/20 05:00 03/22/20 05:00 03/22/20 05:00 03/22/20 05:00 Oxygen Flow Rate (L/min) 65 Oxygen Delivery Method Mechanical Ventilator Weight: 193 lb 5.526 oz Body Mass Index (BMI) 28.2 Finger Stick Blood Glucose 119 Intake and Output for Last 24 Hours 03/21/20 03/21/20 03/22/20 00:59 23:59 23:59 Intake Total 1038.64 / 1038.64 Output Total 550 / 550 Balance 488.64 / 488.64 Labs (Last 48 Hours) 03/21/20 03/21/20 03/21/20 03:20 03:20 03:20 WBC 16.5 H RBC 4.12 L Hgb 12.4 L Hct 40.9 MCV 99.3 H MCH 30.1 MCHC 30.3 L RDW Std Deviation 57.7 H RDW Coeff of Maxim 15.6 H Plt Count 77 L MPV 11.7 Immature Gran % (Auto) 1.300 H Neut % (Auto) 87.5 H Lymph % (Auto) 5.6 L [place] % (Auto) 5.3 Eos % (Auto) 0.1 Baso % (Auto) 0.2 Absolute Neuts (auto) 14.5 H Absolute Lymphs (auto) 0.93 Nucleated RBC % 0 Differential Comment Platelet Estimate MOD DEC Hypochromasia 1+ Anisocytosis 1+ Macrocytosis RARE Sodium 149 H Potassium 4.8 Chloride 111 H Carbon Dioxide 35.0 H Anion Gap 3 L BUN 41 H Creatinine 1.00 Estim Creat Clear Calc 76.35 Est GFR (MDRD) Af Amer 96 Est GFR (MDRD) Non-Af 79 BUN/Creatinine Ratio 41.0 H Glucose 195 H Calcium 7.8 L Phosphorus 2.1 L Magnesium 2.6 03/22/20 03/22/20 04:00 04:00 WBC 17.7 H RBC 4.25 L Hgb 13.0 Hct 42.2 MCV 99.3 H MCH 30.6 MCHC 30.8 L RDW Std Deviation 56.0 H RDW Coeff of Maxim 15.3 H Plt Count 58 L MPV 12.9 H Immature Gran % (Auto) 1.500 H Neut % (Auto) 89.7 H Lymph % (Auto) 5.6 L [place] % (Auto) 2.9 Eos % (Auto) 0.1 Baso % (Auto) 0.2 Absolute Neuts (auto) 15.9 H Absolute Lymphs (auto) 0.99 Nucleated RBC % 0 Differential Comment SCANNED Platelet Estimate MOD DEC Hypochromasia Anisocytosis Macrocytosis Sodium 146 H Potassium 4.5 Chloride 111 H Carbon Dioxide 32.0 Anion Gap 3 L BUN 62 H Creatinine 1.22 Estim Creat Clear Calc 62.58 Est GFR (MDRD) Af Amer 76 Est GFR (MDRD) Non-Af 63 BUN/Creatinine Ratio 50.8 H Glucose 377 H Calcium 7.6 L Phosphorus Magnesium Clinical Impression(s) from Imaging Studies Chest X-Ray 03/14/20 06:39 IMPRESSION: Patchy diffuse airspace opacification in both lung sunshine, differential as described. Follow-up recommended to ensure resolution Electronically Signed: Carlos Giang MD at 8:30 EDT , Service support , Chest CTA 03/14/20 09:30 IMPRESSION: No demonstrated PE, or thoracic aortic aneurysm or dissection Diffuse airspace and interstitial opacifications in both lung sunshine, differential as described above. Scattered subcentimeter axillary, mediastinal, perihilar lymphadenopathy Degenerative bony changes Electronically Signed: Carlos Giang MD at 10:32 EDT , Service support , Chest X-Ray 03/18/20 11:05 IMPRESSION: The tip of the endotracheal tube is at 4.6 cm proximal to the river. Since prior study, there has been progressive patchy airspace disease involving both lungs worse in the left lower lobe. Electronically Signed: David Patel, at 11:28 EDT , Service support , Chest X-Ray 03/19/20 05:25 IMPRESSION: All the support tubes are unchanged. Since prior study, there has been mild degree of improved aeration of the diffuse bilateral airspace disease. Electronically Signed: David Patel, at 8:30 EDT , Service support , Chest X-Ray 03/21/20 06:27 IMPRESSION: No significant interval change. Electronically Signed: Pal Clarke, at 8:19 EST Tel , Service support , Medical Necessity - Tobacco Use Smoking Status: Never smoker Tobacco Use: Non-smoker Assessment/Plan All Active Problems (Last Updated 03/22/20 @ 17:10 by Mary Beth Conn) Elevated troponin (Acute 03/14/20) Atrial fibrillation with rapid ventricular response (Acute 03/22/20) Acute respiratory failure with hypoxia (Acute) Pneumonia due to COVID-19 virus (Acute) Hyperglycemia (Resolved) RECOMMENDATIONS: 1. Continue current supportive measures with invasive mechanical ventilatory support. Wean FiO2 and PEEP to maintain oxygen saturations at or above 90%. 2. Continue medical management of atrial fibrillation, pending evaluation by cardiology. 3. Continue Decadron 6 mg daily x10 days. 4. Continue tube feeds as tolerated. 5. Check coagulation profile, D-dimer and fibrinogen level. 6. Start continuous heparin infusion. 7. Start empiric antimicrobials. 8. Goals of care discussion with patient's family. IMPRESSIONS: 1. Acute hypoxemic respiratory failure secondary to COVID-19 pneumonia Plan to continue current supportive measures including invasive mechanical ventilatory support, with plans to wean FiO2 and PEEP to maintain oxygen saturations at or above 90%. The patient was initially placed on remdesivir and did receive convalescent plasma. The patient's Lovenox had to be placed on hold due to hemoptysis. However, he is now in atrial fibrillation with a rapid ventricular rate and has a significantly elevated D-dimer level. Therefore, the patient will be placed on weight-based heparin infusion for now. Tube feeds will be continued as tolerated. The patient will be continued on Decadron as ordered. Medical management of his atrial fibrillation will be undertaken. The patient has been spiking high-grade fevers and has a positive blood culture with gram-positive cocci. Empiric antimicrobials will be started. 2. Atrial fibrillation with rapid ventricular rate/troponin elevation Continue Cardizem and amiodarone as ordered. Cardiology consultation is currently pending. 3. Hypernatremia/hyperchloremia Stable at this time. Plan to continue free water flushes as ordered. If sodium continues to rise, will start D5W infusion. 4. Acute kidney injury Likely prerenal in etiology with a component of ischemic ATN. Plan to continue current supportive measures. Continue to monitor urine output. No current indication for renal replacement therapy. 5. Thrombocytopenia Anticipate that this is related to the patient's sepsis. Although D-dimer level is elevated, fibrinogen level is also high. Continue to monitor CBC daily. No indication for transfusion at this time. UPDATE: Patient's family called the ICU and indicated that they had a family meeting this morning and are wishing to proceed with comfort care measures, with plans for palliative withdrawal of life support. Upon family arrival, CODE STATUS was updated to DNR CC and orders placed for palliative medications. TIME: 39 minutes of critical care time, independent of procedures, was spent addressing the patient's acute hypoxemic respiratory failure secondary to COVID- 19 pneumonia, atrial fibrillation with rapid ventricular rate, hypernatremia, acute kidney injury, thrombocytopenia, review of all data and collaboration with the care team. ([id number], [id number]) [id number] Critical care first hour
[2020-03-22] MEDS: dexAMETHasone 10 MG/ML Vial 6 MG IV (08:08)
[2020-03-22] MEDS: Acetaminophen 650 MG/20 ML UDC GT ×2 (08:08→13:44)
[2020-03-22] MEDS: Famotidine 20 MG Tablet PO (08:09)
[2020-03-22] MEDS: Senna/Docusate Sodium 1 Tablet 2 TABLET PO (08:09)
[2020-03-22] MEDS: Chlorhexidine 15 ML PO (08:09)
[2020-03-22] MEDS: 0.9% Saline Lock 10 ML Syringe IV (08:24)
[2020-03-22 09:30] LABS: International Normalized Ratio 1.5; Partial Thromboplast Time 29.9 Seconds (24.1-36.2); Prothrombin Time (Protime)PT. 17.1 SECONDS (11.7-14.9)
[2020-03-22 09:34] LABS: Fibrinogen 448 mg/dl (203-444)
[2020-03-22 09:56] LABS: D-Dimer Quantitative (DVT/PE) > 20.00 FEU/ug/m (0.27-0.49)
--- NOTE | 2020-03-22 10:24 | CASEMGMT ---
RN CM Note: participated in ICU interdisciplinary rounds. The patient remains on ventilator, 70% O2. cooling blanket for for increased tempt. Tmax on 03/21 was 104.8. The patient remains on Amiodarone gtt, Decadron IV and cardizem gtt, TF, Fentanyl and Diprivan. DC Planning on hold. DC PLAN: PHI TREJO RN ACM
--- NOTE | 2020-03-22 10:57 | CT_ITS ---
STUDY: CT BRAIN WITHOUT CONTRAST REASON FOR EXAM: Male, 69 years old. CONFUSION, FEVER, COVID + RADIATION DOSAGE (If Supplied By Facility): CTDIvol = ( 60.81 ) mGy, DLP = ( 2179.77 ) mGycm TECHNIQUE: Transaxial CT imaging of the brain was performed without administration of intravenous contrast material. Individualized dose optimization techniques were used for this CT. COMPARISON: No relevant priors. FINDINGS: Normal soft tissue structures. Normal calvarium. Normal size ventricles and extra-axial spaces for the patient''s age. Normal white matter tracts of the cerebral hemispheres. Normal basal ganglia and thalami. Normal brainstem. Normal cerebellum. There is no intracranial hemorrhage. There are no findings of an acute ischemic infarction. Partial opacification of the right sphenoid sinus. Small air-fluid level in the right frontal sinus. 6 mm polyp or retention cyst along the anterior aspect of the right maxillary sinus. There is opacification of both mastoid air cells. CT/Brain/Head without Contrast IMPRESSION: Sinus changes as described. Opacification of both mastoid air cells. Electronically Signed: David Patel, at 12:15 EST , Service support ,
[2020-03-22] MEDS: Morphine 4 MG/ML Syringe IV (15:00)
[2020-03-22] MEDS: LORazepam 2 MG/ML Syringe 1 MG IV (15:00)
--- NOTE | 2020-03-22 15:00 | NURSING ---
extubated. family at bedside
--- NOTE | 2020-03-22 15:23 | CON.PCM_ITS ---
Reason for Consult Date of Consultation: 03/22/20 Reason for Consultation: Irregular heartbeat History of Present Illness: The patient is a 69 year old M with a past medical history which was really insignificant who presented to the hospital with progressive shortness of breath started a week prior to presentation. He was seen in the emergency room was noted to have a fever and a cough productive of scant sputum. He was noted to be tachycardic in the emergency room with his EKG demonstrating sinus tachycardia. He was tested for Covid and it was noted to be positive. His lactate was elevated, CRP was elevated, further drainage and was elevated and his CTA of the chest confirmed scattered groundglass opacities. He was treated with antibiotics and subsequently treated with remdesivir as well as convalescent plasma. He had been on BiPAP [id number] and eventually was intubated. Yesterday was noted to have gone into atrial fibrillation with a rapid ventricular response rate. Was started on intravenous diltiazem as well as amiodarone. Patient had had some hemoptysis while on Lovenox and this was discontinued and he has been started on intravenous heparin. He had a CT scan of his head today to exclude a cerebrovascular event. [] He is currently intubated and sedated. Past Medical History Allergies/Adverse Reactions: Allergies No Known Allergies Allergy (Verified 10/16/14 22:10) Home Medications: Ambulatory Orders Medication Instructions Recorded Testosterone Cypionate [Testone 200 mg IM 03/14/20 Cik] Past Medical History (Chronic Problems): Chronic Problems Cholelithiasis (Chronic) Surgical History: no surgical history Psychiatric History: No pertinent psych hx - *Family History Maternal History Items: Heart Disease Paternal History Items: Pulmonary Disease, - - there is no FH of DM Smoking Status: Never smoker Tobacco Use: Non-smoker Alcohol: None Drugs: None Review of Systems - Review of Systems General: Reports: Fever. Denies: Fatigue, Night Sweats HEENT: Denies: Vision Change Cardiovascular: Reports: Shortness of Breath, Shortness of Breath at Rest, Shortness of Breath with Exertion. Denies: Chest Discomfort, Orthopnea, PND, Peripheral Edema, Palpitations, Lightheadedness, Dizziness, Near Syncope, Syncope Respiratory: Reports: Cough. Denies: Sputum Production, Hemoptysis Gastrointestinal: Denies: Hematemesis, Hematochezia, Melena Genitourinary: Denies: Dysuria, Hematuria Skin: Denies: Rash Objective: Vital Signs Temp Pulse Resp BP Pulse Ox 104.2 F H 94 36 H 128/56 H 94 03/22/20 13:00 03/22/20 13:00 03/22/20 13:00 03/22/20 13:00 03/22/20 13:00 Oxygen Flow Rate (L/min) 65 Oxygen Delivery Method Room Air Weight: 193 lb 5.526 oz Body Mass Index (BMI) 28.2 Finger Stick Blood Glucose 119 Intake and Output for Last 24 Hours 03/21/20 03/21/20 03/22/20 00:59 23:59 23:59 Intake Total 1191.39 / 1191.39 Output Total 985 / 985 Balance 206.39 / 206.39 03/21/20 03:20: Phosphorus 2.1 L, Magnesium 2.6 03/22/20 04:00: WBC 17.7 H, RBC 4.25 L, Hgb 13.0, Hct 42.2, MCV 99.3 H, MCH 30.6, MCHC 30.8 L, Plt Count 58 L, MPV 12.9 H, Immature Gran % (Auto) 1.500 H, Neut % (Auto) 89.7 H, Lymph % (Auto) 5.6 L, [place] % (Auto) 2.9, Eos % (Auto) 0.1, Baso % (Auto) 0.2, Absolute Neuts (auto) 15.9 H, Nucleated RBC % 0 03/22/20 04:00: Sodium 146 H, Potassium 4.5, Chloride 111 H, Carbon Dioxide 32.0, Anion Gap 3 L, BUN 62 H, Creatinine 1.22, Est GFR (MDRD) Af Amer 76, Est GFR (MDRD) Non-Af 63, BUN/Creatinine Ratio 50.8 H, Glucose 377 H, Calcium 7.6 L 03/22/20 08:45: PT 17.1 H, INR 1.5, APTT 29.9, D-Dimer Quant (PE/DVT) > 20.00 H* Rhythm: Atrial flutter with a rapid ventricular response rate EKG: Initial EKG demonstrated sinus tachycardia with no acute changes. ECHO: Stress Test: Cardiac Cath: PCI: CT Surgery: Holter monitor: EPS: PPM: CXR: Chest CT Scan: Assessment/Plan 1. Atrial flutter with variable ventricular response rate. * Patient is noted to be Covid positive was on anticoagulation developed hemoptysis and then developed atrial flutter with a rapid ventricular response rate. * He is currently on intravenous diltiazem as well as intravenous amiodarone. I would recommend an additional bolus of intravenous diltiazem as well as digoxin to see whether this would help control the rate. At this particular time I am not inclined to perform a DC cardioversion. An echocardiogram will be held off at this particular time as I do not think that it would change the overall management. Hopefully as his overall underlying disease condition improves his rate may be better controlled. * If his rate remains uncontrollable may need to add oral or NG tube beta- ryan. The above has been discussed with the nursing staff and will be discussed with the thermite welder. * Will continue to follow * * Thank you for allowing me to participate in the care of your patient. Please don't hesitate to call if any issues arise.
--- NOTE | 2020-03-22 16:48 | CHAPLAIN ---
Type of Pastoral Visit ___ Initial Visit ___ Follow-up Visit ___ On-call Visit ___ General Patient Visit ___ Spiritual Assessment ___ Family Conference _x__ Bereavement ___ Rapid Response ___ Code Blue ___ Other (describe below) Pastoral Care Referral From ___ Patient _x__ Family _x__ Nurse ___ Physician ___ Senior Fund Accountant ___ Overcoil Stepper ___ Other (describe below) Sacrament/Intervention _x__ Active listening ___ Anointing ___ Orthodoxy _x__ Bereavement ___ Communion ___ Shonda exploration ___ _x__ Life review _x__ Prayer ___ Reconciliation ___ Sacrament of Sick _x__ Supportive presence ___ Wedding ___ Other (describe below) Pastoral Comments met family and brought them to unit for this end-of-life situation; stayed with family as they met with DR and RN's; gave presence, talked about life with the patient, was present at , gave time to talk and grieve; escorted family out of unit
--- NOTE | 2020-03-22 20:11 | PCM.DEATH ---
Preliminary Cause of 1. Hypoxemic respiratory failure secondary to COVID-19 pneumonia Date of Admission: 03/14/20 Date of : 03/22/20 - Principle Diagnosis #1 COVID-19 pneumonia #2 acute hypoxic respiratory failure secondary to COVID-19 pneumonia requiring mechanical ventilation #3 atrial flutter with rapid ventricular response #4 acute kidney injury #5 severe sepsis secondary to COVID-19 pneumonia and coag negative staph bacteremia #6 non-STEMI #7 bacteriuria without significant cystitis #8 superficial wound infection to back area from corynebacterium minutissium Problem List: Active and Suspected Problems (Last Updated 03/22/20 @ 17:10 by Mary Beth Conn) Acute respiratory failure with hypoxia (Acute) Pneumonia due to COVID-19 virus (Acute) Hospital Course 69-year-old male presented to the emergency room at [facility] with a chief complaint of shortness of breath and fever. Work-up in the emergency room showed the patient to have a sinus tachycardia with a rate of 106, lactic acid was elevated, portable chest x-ray was obtained and a Covid test and respiratory panel was obtained, patient was placed on BiPAP, patient's troponin was elevated, patient's COVID-19 test was positive, urinalysis showed the presence of red blood cells and bacteria and positive nitrites. Patient was admitted to ICU for acute hypoxic respiratory failure secondary to COVID-19 pneumonia and severe sepsis secondary to COVID-19 and possible urinary tract infection. Blood cultures initially resulted in no growth, these cultures were repeated during the patient's hospital stay and finally resulted positive for coag negative staph. Patient's oxygen requirement increased during his ICU stay and he finally had to be intubated due to worsening hypoxia. Patient was seen in consultation by critical care and infectious diseases during his hospital stay. Patient was given convalescent plasma and remdesivir during his hospitalization as well as dexamethasone. Patient had an area of a previous abscess over his back, this was cultured and cultured out corynebacterium minutissium-this was not felt to be critical and he was not treated. Patient's urine culture resulted positive for small amounts of alphahemolytic strep-this was not felt to be significant. Patient's respiratory status continued to worsen in the ICU, patient went into atrial flutter with a rapid ventricular response and was seen by cardiology and placed on an amiodarone drip. Discussions were carried out with the patient's immediate family members and on 03/22/2020, it was decided that the patient should be extubated and made a comfort care. Patient shortly after extubation at 1518 on 03/22/2020.
== END 2020-03-22 15:18 | DRG 870 ==
LOC: ED 08:06 → ICU 11:13
PROVIDERS: Emergency Medicine; Internal Medicine Critical Care Medicine; Internal Medicine Infectious Disease; Admitting Provider Family Medicine; Emergency Provider Emergency Medicine; PCP Family Medicine; Visit Provider Internal Medicine
DX: A41.89 Other specified sepsis (principal); U07.1 COVID-19; J12.89 Other viral pneumonia; J80 Acute respiratory distress syndrome; N17.9 Acute kidney failure, unspecified; I21.A1 Myocardial infarction type 2; R04.2 Hemoptysis; E87.0 Hyperosmolality and hypernatremia; L02.212 Cutaneous abscess of back [any part, except buttock and flank]; R65.20 Severe sepsis without septic shock; I48.91 Unspecified atrial fibrillation; E87.5 Hyperkalemia; E87.8 Other disorders of electrolyte and fluid balance, not elsewhere classified; R82.71 Bacteriuria; B96.89 Other specified bacterial agents as the cause of diseases classified elsewhere; M62.89 Other specified disorders of muscle; T17.990A Other foreign object in respiratory tract, part unspecified in causing asphyxiation, initial encounter; X58.XXXA Exposure to other specified factors, initial encounter; Y93.9 Activity, unspecified; Y92.9 Unspecified place or not applicable; Y99.9 Unspecified external cause status
CPT/HCPCS: 31500; 31720; 36569; 36600; 70450; 71045; 71275; 80048; 80053; 81001; 82550; 82803; 82962; 83605; 83615; 83735; 83880; 84100; 84145; 84478; 84484; 85025; 85027; 85379; 85384; 85610; 85730; 86140; 86900; 86901; 87040; 87070; 87077; 87086; 87088; 87149; 87186; 87205; 87449; 87633; 87635; 87640; 93005; 94002; 94003; 94640; 94660; 97802; 99251; 99285; J7030; J7050; Q9967; A4216; G0463; J0153; J3010; U0002